=== PATIENT | female | born 1965 | race Caucasian/White ===

== ENCOUNTER → 2020-03-27 | Outpatient (CLI) | payer BC, OTHER ==
[~2020-03-27] MED LIST: CARV6.25 PO; D31000TA2 PO; FOSI20TA79 PO; METF-838 PO; MULTTAB61 PO; NAPR-885 PO; OZEM2INJ SQ; ROSU5TAB5 PO; SERT-138 PO
== END ==
LOC: M LABSMTC 11:26
PROVIDERS: ATTEND Anesthesiology
DX: Z20.828 Contact with and (suspected) exposure to other viral communicable diseases (principal)

== ENCOUNTER 2020-04-01 07:25 | Observation (INO) | payer BC, OTHER ==
[~2020-04-01] VITALS: Ht 165.1 cm; Wt 105.5 kg
[2020-04-01] VITALS (7 sets, daily range): BP systolic 128–150; BP diastolic 75–88
[~2020-04-01 07:25] MED LIST changes: +HEPARIN SOD (PORCINE) 5000UNITS/ML 1ML VIAL/SYRINGE SQ ONE; +UNRESOLVED CLARIFICATION ENTRY XX SCH
[2020-04-01] MEDS ORDERED: ONDANSETRON 4MG/2ML VIAL As Ordered ONE (08:21)
[2020-04-01] MEDS ORDERED: LIDOCAINE 2% 100MG/5ML SDV (FOR ANES.) As Ordered ONE (08:21)
[2020-04-01] MEDS ORDERED: ROCURONIUM BROMIDE 50 MG/5 ML VIAL As Ordered ONE ×2 (08:21→10:35)
[2020-04-01] MEDS ORDERED: dexameTHASONE 4 MG/ML 1ML VIAL (J1100 PER 1MG) As Ordered ONE (08:21)
[2020-04-01] MEDS ORDERED: fentaNYL 250 MCG/5 ML INJECTION (J3010) As Ordered ONE (08:21)
[2020-04-01] MEDS ORDERED: MIDAZOLAM INJ 2MG/2ML VIAL (J2250 PER 1MG) As Ordered ONE (08:21)
[2020-04-01] MEDS ORDERED: propofoL 200 MG/20 ML VIAL As Ordered ONE (08:21)
[2020-04-01] MEDS ORDERED: BUPIVACAINE LIPOSOME/PF 1.3% 20ML VIAL (13.3MG/ML)(EXPAREL)(C9290 PER1MG) As Ordered ONE (09:11)
[2020-04-01] MEDS ORDERED: LIDOCAINE 1% MDV 20ML VIAL As Ordered ONE (09:11)
[2020-04-01] MEDS ORDERED: EPINEPHrine INJ 1 MG/ML 1ML AMP As Ordered ONE (09:11)
[2020-04-01] MEDS ORDERED: BACITRACIN PWD 50,000 UNITS VIAL As Ordered ONE (09:12)
[2020-04-01] MEDS ORDERED: CLINDAMYCIN 600 MG/50 ML PREMIX BAG As Ordered ONE (09:53)
[2020-04-01] MEDS ORDERED: ePHEDrine SULFATE 25 MG/5 ML(5MG/ML) SYRINGE As Ordered ONE (10:14)
[2020-04-01] MEDS ORDERED: PHENYLephrine HCL 500 MCG/5 ML (100MCG/ML) SYRINGE (J2370) As Ordered ONE (10:45)
[2020-04-01] MEDS ORDERED: SUGAMMADEX SODIUM 500 MG/5 ML VIAL (BRIDION) As Ordered ONE (11:01)
[2020-04-01] MEDS ORDERED: ACETAMINOPHEN 1000MG 100ML IV BTL (OFIRMEV) (J0131 PER 10MG) As Ordered ONE (11:01)
[2020-04-01] MEDS ORDERED: HYDROmorphone HCL 2 MG/ML 1ML VIAL (J1170) As Ordered ONE (11:01)
[2020-04-01] MEDS ORDERED: SEVOFLURANE INHAL SOLN 250 ML BTL As Ordered ONE (11:22)
[2020-04-01] MEDS ORDERED: METOCLOPRAMIDE INJ 10MG/2ML VIAL (J2765 PER 1) As Ordered ONE (12:37)
--- NOTE | 2020-04-01 14:04 | POST-OPPD ---
Postoperative Procedure Note Date Of Procedure: Apr 01, 2020 PREOPERATIVE DIAGNOSIS: Breast asymmetry. h/o of Right breast cancer. POSTOPERATIVE DIAGNOSIS: same FINDINGS: Right breast s/p lumpectomy and radiation. Right breast ptosis with contraction. PROCEDURE: Right breast mastopexy, Left breast reduction for symmetry. SURGEON: Dr Parry ANESTHESIA: general SPECIMENS: Right breast tissue, Left breast tissue 342 gm. Liposuction fluid 350cc ESTIMATED BLOOD LOSS: 100 cc REPLACED: none DRAINS: 10 mm DEON x 2 COMPLICATIONS: none POSTOPERATIVE CONDITION: stable Dictation: [id number] JENNIFER PARRY DO Apr 01, 2020 14:04
[2020-04-01] MEDS: LR 1,000 ML IV SCH (14:05)
[2020-04-01] MEDS ORDERED: PERCOCET 5MG/325MG TAB PO PRN (14:15)
[2020-04-01] MEDS ORDERED: ACETAMINOPHEN TAB 650MG DOSE (2X325MG) PO PRN (14:15)
[2020-04-01] MEDS ORDERED: ONDANSETRON 4MG/2ML VIAL IV PRN ×2 (14:15→14:30)
[2020-04-01] MEDS ORDERED: oxyCODONE 5MG TAB PO PRN (14:30)
[2020-04-01] MEDS ORDERED: LR 1,000 ML IV SCH (14:30)
[2020-04-01] MEDS ORDERED: HYDROMORPHONE HCL 0.5 MG/ 0.5 ML SYRINGE (J1170 PER 1) IV PRN (14:30)
[2020-04-01] MEDS ORDERED: fentaNYL 100 MCG/2 ML INJECTION (J3010) IV PRN (14:30)
[2020-04-01] MEDS ORDERED: KETOROLAC TROMETHAMINE 10 MG TAB PO PRN (15:00)
[2020-04-01] MEDS: SERTRALINE 100 MG TAB PO SCH (16:55)
[2020-04-01] MEDS: metFORMIN (GLUCOPHAGE) 500 MG TAB PO SCH (16:55)
[2020-04-01] MEDS: FOSINOPRIL 10 MG TAB PO SCH (16:56)
[2020-04-01] MEDS: CARVedilol 6.25 MG TAB PO SCH (22:17)
[2020-04-02 02:00] VITALS: BP 120/72
[2020-04-02] MEDS: LR 1,000 ML IV SCH (03:30)
[2020-04-02 06:00] VITALS: BP 119/75
--- NOTE | 2020-04-02 08:00 | RO ---
OPERATIVE NOTE DATE OF OPERATION: 04/01/2020 PREOPERATIVE DIAGNOSIS: Breast asymmetry, history of right breast cancer. POSTOPERATIVE DIAGNOSIS: Breast asymmetry, history of right breast cancer. PROCEDURE: Right breast mastopexy and left breast reduction for symmetry. ATTENDING SURGEON: Jael Frazier DO, FACOS ANESTHESIA: General. SPECIMEN: Right breast tissue and left breast tissue, left breast tissue's weight 342 gm. and liposuction fluid 350 mL. ESTIMATED BLOOD LOSS: 100 mL BLOOD REPLACEMENT: Not needed. DRAINS: No drains. DRAINS: 10 mm Juan-Jefferson x2. COMPLICATIONS: None. PROCEDURE: This is a 54-year-old female with a history of right breast cancer. She had a lumpectomy followed by radiation to the right breast. The patient presents to me with significant asymmetry, right breast being smaller than the left. Also there is a contracted scar, inferior portion of the breast. The patient would like to achieve symmetry between the right and left breast. The best approach for her is to give her a mastopexy on the right side with breast reduction for symmetry on the left. Risks, benefits and alternatives were discussed with the patient in detail and she is ready to proceed. On the day of surgery, she was marked in the preoperative holding area. The right side from the sternal notch to the nipple areolar complex is 26 cm. On the left, it is 29 cm. The IMF measures 20 cm. She is marked for central pedicle for left on the right side and for superomedial pedicle for reduction on the left. After that portion was completed, she was brought into the operating room, placed in supine position. Preoperative antibiotics were given. Sequentials placed on the lower calves. General anesthesia was induced. 5000 units of heparin were given subcu before the operation started. We outlined the nipple-areolar complex on the right side at 42 mm in diameter and then incision was carried out around the incision and a lollipop incision, bringing her nipple placement at 20 cm from sternal notch. The central pedicle was dissected. The contraction of the inferior scar was released using electrocautery. The wounds were irrigated and then Exparel was infiltrated throughout the breast parenchyma, 6 mL total. Then we were able to move up the breast mound without any tension to its new location. No tissue was resected. A small amount of skin was resected medially. The pillars were closed with interrupted 3-0 Monocryl sutures. The vertical limb was 7 cm. A slight amount of excess tissue was measured inferiorly and partially transected and then de-epithelialized and then it was used to enhance the inferior pole. The horizontal incision was closed with interrupted 3-0 Monocryl sutures medially. We placed a drain through a separate stab incision. A 10 mm Juan-Jefferson drain was placed and then the patient had some excess tissue in the lateral chest on the right less than on the left. Nevertheless, tumescent solution was infiltrated in the lateral chest, 200 mL. Then the Vaser-assisted liposuction was done for two minutes followed by a regular liposuction, taking out almost 175 mL on the right side. Now we continued closure for the horizontal scar in the setting of the nipple-areolar complex in place with layered closures, 3-0 Monocryl, 4-0 Monocryl sutures and interrupted 5-0 plain gut sutures. Then we turned our attention to the left side and the nipple-areolar complex was outlined at 42 mm in diameter and then we started our resection of the breast. Inferolateral portion of the breast resected using electrocautery. The pedicle was identified and irrigated with some good vascular status. It was the de-epithelialized using Schafer scissors and a slight backcut was made inferiorly and it was brought into its new position at 20 cm from the sternal notch. The pillars were started closing with interrupted 3-0 Monocryl sutures. The vertical incision was 7 cm. Excess tissue was measured inferiorly and resected, creating the horizontal scar. A 10 mm Juan-Jefferson drain was placed through a separate stab incision and then we continued our closure of the horizontal scar. Tumescent solution was infiltrated in the lateral chest. Vaser liposuction was done, two minutes. The infiltration of tumescent was 200 mL. Then suction-assisted lipectomy was created to achieve the symmetry to the right side from the lateral chest and we had taken out 175 mL on the left as well. Then we continued closing the horizontal scar with 3-0 Monocryl sutures. The nipple-areolar complex was set in place with layered closure of 3-0 and 4-0 Monocryl sutures and a 5-0 plain. Good symmetry was achieved on the breast. A Prineo dressing was applied for the vertical and horizontal scars, Xeroform for the nipple areola as well as a bulky dressing and a surgical bra. The patient was extubated in the operating room without any difficulty, transferred to the recovery room in stable condition.
--- NOTE | 2020-04-02 08:29 | IPNPDOC ---
Subjective General Date Seen: Apr 02, 2020 Subject Chief Complaint/History The patient is a 54-year-old female admitted with a reason for visit of Malignant Neoplasm Right Breast,Ptosis Left Breast. Patient is s/p Right mastopexy and left breast reduction for symmetry POD 1. Doing well. Pain controlled. Ambulated. Tolerating diet. Current Medications Current Medications Current Medications Medications (Trade) Dose Ordered Sig/Danuta Route PRN Reason Start Time Stop Time Status Last Admin Dose Admin Acetaminophen (Tylenol Tab) 650 mg Q6H PRN PO MILD PAIN (PS 1-4) 04/01/20 14:15 Carvedilol (COReg) 6.25 mg BID PO 04/01/20 21:00 04/01/20 22:17 Fentanyl Citrate (Sublimaze) 25 mcg Q5MP PRN IV PAIN LEVEL 5-10 04/01/20 14:30 04/01/20 15:30 DC Fosinopril Sodium (Monopril) 20 mg DAILY PO 04/01/20 09:00 04/01/20 16:56 Hydromorphone HCl (Dilaudid) 0.2 mg Q5MP PRN IV PAIN LEVEL 4-7 04/01/20 14:30 04/01/20 15:30 DC Ketorolac Tromethamine (ToRADol) 10 mg Q6HP PRN PO MODERATE PAIN (PS 5-7) 04/01/20 15:00 04/06/20 14:59 04/01/20 20:10 Lactated Ringer's 1,000 ml @ 75 mls/hr [id number] IV 04/01/20 14:05 04/02/20 03:30 Lactated Ringer's 1,000 ml @ 100 mls/hr Q10H IV 04/01/20 14:30 04/01/20 15:30 DC Metformin HCl (Glucophage) 500 mg BID@08,18 PO 04/01/20 18:00 04/01/20 16:55 Miscellaneous (Unresolved Clarification Entry) SEE LABEL COMMENTS UNRESOLVED XX 04/01/20 00:01 Ondansetron HCl (ZOFRAN INJection) 4 mg Q4H PRN IV NAUSEA OR VOMITING 04/01/20 14:15 Ondansetron HCl (ZOFRAN INJection) 4 mg Q4HP PRN IV NAUSEA OR VOMITING 04/01/20 14:30 04/01/20 15:30 DC Oxycodone HCl (Roxicodone, Oxyir) 5 mg ASDIRECTED PRN PO PAIN LEVEL 1-4 04/01/20 14:30 04/01/20 15:30 DC Oxycodone/ Acetaminophen (Percocet 5mg/ 325mg Tablet) 2 tab Q4HP PRN PO PAIN LEVEL 8-10 04/01/20 14:15 04/01/20 22:17 Rosuvastatin Calcium (Crestor) 5 mg DAILY PO 04/02/20 09:00 Sertraline HCl (Zoloft) 100 mg DAILY PO 04/01/20 09:00 04/01/20 16:55 Allergies Coded Allergies: Cephalosporins (Verified Allergy, Intermediate, swelling, rash, 04/01/20) Objective Physical Examination Examination GENERAL APPEARANCE:Patient seen, laying in bed, awake, alert, and oriented. Comfortable, in no acute distress. SKIN: Warm and moist. BREAST: Right and left soft, non-tender incisions intact. DEON drains: R60/L40 cc/24 hr. NAC: Viable, warm, symmetrical, mild post-op ecchymosis, no expanding hematoma. LUNGS: Clear to auscultation bilaterally. No wheezing appreciated. HEART: No chest wall abnormalities. Regular rate and rhythm with no murmurs appreciated. ABDOMEN: Abdomen is soft, non-tender, non-distended. EXTREMITIES: No edema identified. No calf tenderness. Vital Signs Vital Signs Date Time Temp Pulse Resp B/P (MAP) Pulse Ox O2 Delivery O2 Flow Rate FiO2 04/02/20 06:00 98.4 74 17 119/75 (90) 97 Room Air I&Os I&O- Last 24 Hours up to 6 AM 04/02/20 06:00 Intake Total 2320 ml Output Total 100 ml Balance 2220 ml Laboratory Data Labs 24H Laboratory Tests 2 04/01/20 16:29: Bedside Glucose (Misc Panel) 151H 04/01/20 20:35: Bedside Glucose (Misc Panel) 147H 04/02/20 06:08: Bedside Glucose (Misc Panel) 102 Impression S/p Breast reconstruction with Right breast mastopexy and left breast reduction for symmetry. Stable for discharge Monitor drains at home Keep bra on Dressing changed Instructions given F/up plastic surgery Tuesday. Plan / VTE VTE Prophylaxis Ordered?: Yes JENNIFER PARRY DO Apr 02, 2020 08:29
[2020-04-02 08:30] VITALS: BP 119/75
[2020-04-02] MEDS: CARVedilol 6.25 MG TAB PO SCH (08:30)
[2020-04-02] MEDS: SERTRALINE 100 MG TAB PO SCH (08:30)
[2020-04-02] MEDS: metFORMIN (GLUCOPHAGE) 500 MG TAB PO SCH (08:30)
[2020-04-02] MEDS: FOSINOPRIL 10 MG TAB PO SCH (08:31)
[2020-04-02] MEDS ORDERED: PERCOCET PO (08:51)
[2020-04-02] MEDS ORDERED: ROSUVASTATIN 10 MG TAB (CRESTOR) PO SCH (09:00)
[2020-04-02 10:00] VITALS: BP 119/71
== END 2020-04-02 10:45 | disposition home or self-care (01) ==
LOC: M SDC 07:25 → M ED INP 07:26 → M MS5PR 15:25
PROVIDERS: ADMIT Plastic Surgery Surgery of the Hand; ATTEND Plastic Surgery Surgery of the Hand
DX: N64.81 Ptosis of breast (principal); L98.8 Other specified disorders of the skin and subcutaneous tissue; Z85.3 Personal history of malignant neoplasm of breast; I10 Essential (primary) hypertension; E11.9 Type 2 diabetes mellitus without complications; Z92.21 Personal history of antineoplastic chemotherapy; Z92.3 Personal history of irradiation; F41.9 Anxiety disorder, unspecified; Z79.84 Long term (current) use of oral hypoglycemic drugs; Z79.899 Other long term (current) drug therapy; Z88.1 Allergy status to other antibiotic agents
CPT/HCPCS: 19316; 19318; 88300; 88302; 88305; 96360; 96361; C9290; J0131; J0171; J1100; J1170; J1644; J2250; J2370; J2405; J2765; J3010

== ENCOUNTER → 2020-10-08 | Outpatient (CLI) | payer BC, OTHER ==
[~2020-10-08] MED LIST changes: -HEPARIN SOD (PORCINE) 5000UNITS/ML 1ML VIAL/SYRINGE SQ ONE; +PERCOCET PO; -UNRESOLVED CLARIFICATION ENTRY XX SCH; +ZOLO100T
[2020-10-08 09:00] VITALS: BP 134/78
--- NOTE | 2020-10-11 07:35 | ROOPDOC ---
[facility] Report Of Operation Report of Operation DATE OF PROCEDURE: 10/08/20 DIAGNOSIS: right breast suspicious lesion palpable and seen on sonography PROCEDURE: ultrasound guided biopsy of the right breast suspicious lesion with clip placement SURGEON: Kenan Shah BLOOD LOSS: minimal COMPLICATIONS: none Lidocaine 1% LOT [id number] Expiration 04/2024 Sodium Bicarbonate 8.4% LOT [id number] Expiration 04/2021 Hydromark clip LOT [id number] Expiration 06/2023 SHAPE: 4 Bx device: BARD [id number] x10 cm LOT [id number] Expiration 06/2023 Informed consent was obtained. The most common risk and possible complications including bleeding, hematoma, bruising, infection, injury to surrounding structures were explained to the patient and the patient expressed understanding. Patient was placed on the bed in the supine position. Appropriate time out was done stating patients name, date of , and the procedure to be performed. The right breast was prepped and draped in the usual fashion. The ultrasound was used to confirm the location of the lesion in the right breast at 7:00 5 centimeters from the nipple. This location of the lesion also corresponded to the palpable mass felt on exam previously. The extent of palpable mass was marked on the skin. Plain Lidocaine 1% and 8.4% sodium bicarbonate 10:1 mix was used to anesthetize the skin, the biopsy site and tissues along the anticipated biopsy tract. Small skin incision was made with blade number 11. BARD Marquee 14G cannula with introducer ([id number]) was inserted through the incision and advanced under the ultrasound guidance to position immediately adjacent to the lesion. Next, the introducer was removed and BARD Marquee 14G biopsy device was places in the cannula. Pre-biopsy imaging, and post-biopsy imaging were captured. Five good core biopsies were taken at various levels of the lesion. Specimen was placed in formaldehyde, labeled with appropriate biopsy site and patients name, and sent to pathology for evaluation. Next, the biopsy device was withdrawn and a clip introducer was inserted into the biopsy site via the cannula. SHAPE 4 Hydromark clip was deployed under sonographic guidance. Post-clip placement image was captured. Manual pressure over the biopsy cavity and tract was held after the clip introducer was withdrawn. No bleeding was noted upon removal of the pressure. Post-biopsy mammogram of the right breast was obtained and showed clip in expected position. Of note, on shahbaz MLO view the clip seems to be 1.3 cm i nferior to mammographic focal asymmetry which was initially thought, by the radiology team, to correspond to the sonographic lesion. Postprocedural dressing was placed. Patient tolerated procedure well. Discharge instructions were discussed with the patient and the patient expressed understanding. KENAN SHAH DO Oct 11, 2020 07:35
== END ==
LOC: M WHCPRO 06:51
PROVIDERS: ATTEND Surgery
DX: D24.1 Benign neoplasm of right breast (principal)
CPT/HCPCS: 19083; 77065; 88305; G0279

== ENCOUNTER → 2020-11-04 | Outpatient (CLI) | payer BC, OTHER ==
[2020-11-04 14:36] VITALS: BP 102/62
--- NOTE | 2020-11-04 14:42 | REP ---
INDICATION: R92.8 ABN RIGHT MAMMO/STEREO BX/CK CLIP PLACEMENT. Marker clip placement views. COMPARISON: Comparison mammography October 08, 2020 and September 19, 2020 as well as September 16, 2020. TECHNIQUE: Craniocaudal and mediolateral oblique views of the right breast are obtained. FINDINGS: A repeat craniocaudal view of the right breast is obtained and compared with the post marker clip placement CC view obtained on October 08, 2020. The marker clip is visible from that biopsy on the repeat CC view. A repeat stereotactic needle biopsy was performed using the area of architectural distortion seen in the right breast targeting from a mediolateral projection. Repeat CC and MLO views demonstrate this new marker clip in good position. IMPRESSION: Second needle biopsy marker clip placed today stereotactically is seen in good position. <Electronically signed by Adryan Cook > 11/04/20 [id number]
--- NOTE | 2020-11-04 17:06 | REP ---
INDICATION: R92.8 ABN RIGHT MAMMO/STEREO BX/CK CLIP PLACEMENT. COMPARISON: None. TECHNIQUE: The procedure was performed under the general supervision of Dr. Cook. Patient has a history of focal asymmetry of the retromammary lower-outer right breast seen on a previous mammogram dated 09/19/2020 from [facility]. The risks and benefits of the procedure were explained to the patient and informed consent was obtained. A mediolateral oblique approach was utilized. The nodule was localized using stereotactic mammographic guidance. 9 mL of 1% Xylocaine was used as a local anesthetic. A 10 gauge, suction assisted Mammotome needle was inserted and 6 core biopsy samples were obtained. A marker clip(HydroMARK shape 3) was placed at the biopsy site. The patient tolerated the procedure well and there were no immediate complications. After the appropriate amount of monitored convalescence, the patient was discharged from the department. EBL: Less than 3 mL FINDINGS: None IMPRESSION: Stereotactic right breast biopsy with marker clip placement.(HydroMARK shape 3) <Electronically signed by Alden Garcia > 11/04/20 [id number] <Electronically signed by Adryan Cook > 11/04/20 1701
== END ==
LOC: M WHCPRO 07:08
PROVIDERS: ATTEND Surgery
DX: R92.8 Other abnormal and inconclusive findings on diagnostic imaging of breast (principal)

== ENCOUNTER → 2021-01-08 | Outpatient (CLI) | payer BC, OTHER | LOC: M LABSMTC 11:28 | PROVIDERS: ATTEND Anesthesiology | DX: Z01.812 Encounter for preprocedural laboratory examination (principal); Z20.822 Contact with and (suspected) exposure to COVID-19 ==

== ENCOUNTER 2021-01-13 06:01 | Day surgery (SDC) | payer BC, OTHER ==
[~2021-01-13] VITALS: Ht 165.1 cm; Wt 93.4 kg
[~2021-01-13 06:01] MED LIST changes: +CLINDAMYCIN 900 MG in IV 1 EA IV ONE; +HEPARIN SOD (PORCINE) 5000UNITS/ML 1ML VIAL/SYRINGE SQ SCH; +LR 1,000 ML IV SCH
--- OUTSIDE RECORDS SUMMARY | 2021-01-13 06:04 | CCD ---
Author Author [facility] Organization [facility] Address Unknown Phone Unavailable Care Team Providers Care Library Circulation Assistant Name Role Phone Jerriradha Rufina Unavailable PROBLEMS Type Condition ICD9-CM Code [id number] Code Onset Dates Condition S tatus W/U Status Risk SNOMED Code Notes Problem History of right breast cancer Z85.3 Active confir med 109369713 Problem Abnormal mammogram of right breast R92.8 Activ e confirmed [id number] ALLERGIES Allergen (clinical drug ingredient) Drug/Non Drug Allergy do cumented on EMR Reaction Allergy Type Onset Date Status cefaclor Cefaclor([facility] Code:[address]-97) swelling Drug Allergy Active ENCOUNTERS from 1964 to 2020-11-26 Encounter Location Date Provider Diagnosis [facility] [address] [place] [address] [place] [address] Oct, Rufina Yap Abnormal mammogram of right breast R92.8 ; History of right breast cancer Z85.3 ; Genetic testing Z13.79 and Family history of cancer Z80.9 IMMUNIZATIONS No Information SOCIAL HISTORY Tobacco Use: Social History Observation Description Date Details (start date - stop date) Never Smoker Sex Assigned At : Social History Observation Description Sex Assigned At Unknown Tobacco Use: Question Answer Notes Are you a: never smoker REASON FOR REFERRAL No Information VITAL SIGNS Weight 210 lbs Oct, Weight-kg 95.25 kg Oct, Height 66 in Oct, BMI 33.89 kg/m2 Oct, Heart Rate 66 /min Oct, Respiratory Rate 18 /min Oct, Temperature 97.5 degrees Fahrenheit Oct, Oximetry 100 Oct, Blood pressure systolic 120 mm Hg Oct, Blood pressure diastolic 80 mm Hg Oct, MEDICATIONS Medication SIG (Take, Route, Frequency, Duration) Notes Start Da te End Date Status Zoloft 100 MG 1 tablet Orally Once a day for 30 day(s) Not-Taking Iron 325 (65 Fe) MG 1 tablet Orally Once a day for 30 day(s) Active metFORMIN HCl ER Active Rosuvastatin Calcium Acti ve Tamoxifen Citrate 20 MG 1 tablet Orally Once a day for 30 day(s) Not-Taking Carvedilol 6.25mg as directed oral bid Active Multivitamins as directed Orally Act edward Ozempic (0.25 or 0.5 MG/DOSE) 2 MG/1.5ML INJECT 0.5MG ONCE WEEKLY Subcutaneous for 28 Not-Taking Fosinopril Sodium Active Sertraline HCl 100 MG 1 tablet Orally Once a day Active PriLOSEC 20 MG 1 capsule Orally Once a day for 30 day(s) Not-Taking Naprosyn 500 MG 1 tablet as needed Orally every 12 hrs Active PROCEDURES No Information RESULTS No Results REASON FOR VISIT Post R Stereo bx with Rad MEDICAL (GENERAL) HISTORY Type Description Date Medical History Allergic Rhinitis Medical History Bunion Left and right Medical History Congenital Accessory Skin Tags Medical History Depression Medical History Essential hypertension Benign Medical History Glaucoma/ Intraocular Pressure Medical History Obesity Medical History IDC right breast, age 42 Medical History diabetes mallitus Surgical History Hysterectomy 2009 Surgical History Tubal Ligation 2000 Surgical History Tonsillectomy 1990 Surgical History TVT 2003 Surgical History Sinus 2001 Surgical History Breast biopsy and lumpectomy 2007 Surgical History Breast reduction 04/01/20 Surgical History R breast u/s bx 10/08/20 Surgical History right breast stereo bx 11/04/20 Hospitalization History Surgery related Goals Section No Information Health Concerns No Information MEDICAL EQUIPMENT No Information MENTAL STATUS No Information FUNCTIONAL STATUS No Information ASSESSMENTS Encounter Date Diagnosis Assessment Notes Treatment Notes Treatm ent Clinical Notes Oct, Abnormal mammogram of right breast (ICD-10 - R92 .8) s/p Right breast ultrasound guided biopsy of palpable mass with sono correlate on 10/08/2020 with mePathology: breast parenchyma what scar formation, fat necrosis, foreign body type giant cell reaction and entrapped squamous epithelium, suggestive of prior biopsy/surgical changes. Clip 2cm laterally S/p Right stereotactic biopsy of mammographic focal asymmetry on 11/06/2020 with RADIOLOGY I reviewed the pathology results of the right breast stereotactic biopsy with Ms. Liang and explained that no malignancy was identified. Her pathology showed benign breast parenchyma with rare foci of ductal epithelial hyperplasia and sclerosing adenosis with associated microcalcifications with foreign body type giant cell reaction/fat necrosis.This result is felt to be concordant with patient's previous surgical history. I explained that no further intervention is needed at this time. I explained that she will have a right breast mammogram and ultrasound is 6 months to assess the stability of both biopsy sites. If there are no further changes seen at that time, she can return to her regular screening mammograms. I asked her to let me know if she schedules her surgery with Dr. Frazier after January as we would need to change her follow-up mammogram and ultrasound. She will follow up on May 04 at 8AM with me. Ms. Liang may proceed with planned surgery with Dr Frazier. She is cleared from breast surgery standpoint. All questions were answered. Patient agrees with the plan Oct, History of right breast cancer (ICD-10 - Z85.3) RIGHT BREAST CANCER (inferior breast) IDC GRADE 3 ER 80% FL 90% HER2 positive pT1c (1.2 cm) pN0 (0/1) cM0 Stage 1 S/p lumpectomy [place] SLNBx [place] [address] Mena Margins negative S/p chemo w Herceptin x 1 year, RT, Tamoxifen x10 years s/p b/l breast reconstruction/ campbell pattern w Dr Frazier 03/2020 - continue annual mammograms - following with Dr Frazier for reconstruction/ fat transfer Oct, Genetic testing (ICD-10 - Z13.79) Done previously, negative Oct, Family history of cancer (ICD-10 - Z80.9) Family Hx of cancer dx in mother at the age of 63. Patient had genetic testing done previously- negative. Oct, Other I, Dr. Poncho patricia, reviewed the medical note prepared by the scribe and confirm the findings and the discussed plan. PLAN OF TREATMENT Treatment Notes Assessment Notes Clinical Notes Abnormal mammogram of right breast s/p Right breast ul trasound guided biopsy of palpable mass with sono correlate on 10/08/2020 with mePathology: breast parenchyma what scar formation, fat necrosis, foreign body type giant cell reaction and entrapped squamous epithelium, suggestive of prior biopsy/surgical changes.Clip 2cm laterallyS/p Right stereotactic biopsy of mammographic focal asymmetry on 11/06/2020 with RADIOLOGYI reviewed the pathology results of the right breast stereotactic biopsy with Ms. Liang and explained that no malignancy was identified. Her pathology showed benign breast parenchyma with rare foci of ductal epithelial hyperplasia and sclerosing adenosis with associated microcalcifications with foreign body type giant cell reaction/fat necrosis.This result is felt to be concordant with patient's previous surgical history.I explained that no further intervention is needed at this time. I explained that she will have a right breast mammogram and ultrasound is 6 months to assess the stability of both biopsy sites. If there are no further changes seen at that time, she can return to her regular screening mammograms.I asked her to let me know if she schedules her surgery with Dr. Frazier after January as we would need to change her follow-up mammogram and ultrasound.She will follow up on May 04 at 8AM with me.Ms. Liang may proceed with planned surgery with Dr Frazier. She is cleared from breast surgery standpoint.All questions were answered. Patient agrees with the plan History of right breast cancer RIGHT BREAST CANCER (i nferior breast)IDC GRADE 3ER 80% FL 90% HER2 [id number] (1.2 cm) pN0 (0/1) [id number] 1S/p lumpectomy [place]NBx [place] [address] Gotti negativeS/p chemo w Herceptin x 1 year, RT, Tamoxifen x10 yearss/p b/l breast reconstruction/ campbell pattern w Dr Frazier 03/2020- continue annual mammograms- following with Dr Frazier for reconstruction/ fat transfer Genetic testing Done previously, negative Family history of cancer Family Hx of cancer dx in mo ther at the age of 63.Patient had genetic testing done previously- negative. Future Test Test Name Order Date [facility] Sundar Diagnostic Unilateral (Ultrasound if Indicat ed) (3D Mammo) [id number] Breast U/S Unilateral Limited [id number] Next Appt Details 05/04/2021 at 8AM Reason:6 month post be nign biopsy. Will need mammogram and ultrasound prior to visit. Keep on AD schedule. Provider Name:Rufina Yap, 20 [birth year]06 08:00:00 AM, [address], , [place], [address], Follow Up:05/04/2021 at 8AM6 month post benign biopsy. Will need mammogram and ultrasound prior to visit. Keep on AD schedule. Insurance Providers Payer Name Payer Address Payer Phone Insured Name Patient Relati onship to Insured Coverage Start Date Coverage End Date [facility] [address] [facility] [id number] SONU LIANG
--- OUTSIDE RECORDS SUMMARY | 2021-01-13 06:04 | CCD | Continuity of Care Document ---
Author Author Hanna PARRY DO Organization Unknown Address [address] [place] [address] Phone [phone] Care Team Providers Care Mixed Signal Design Engineer Name Role Phone AUTM Unavailable Doris Rich N.P. AUTM Jocelyn Humphries AUTM [phone] Problems Active Problems Provider Date Essential hypertension Jael Parry DO Onset: 12/26/2019 Social History Type Date Description Comments Sex Female ETOH Use Occasionally consumes alcohol Tobacco Use Start: Unknown Denies Smoking Smoking Status Reviewed: 12/26/19 Denies Smoking Allergies, Adverse Reactions, Alerts Active Allergies Criticality Reaction | Severity Comments Date Cefaclor Unable to assess criticality 12/26/2019 Medications Active Medications SIG Qnty Indications Ordering Provide r Date Carvedilol 6.25mg Tablets Unknown Fosinopril Sodium 20mg Tablets 1 by mouth every day Unknown Metformin HCL 500mg Tablets Unknown Rosuvastatin Calcium 5mg Tablets Unknown Sertraline HCL 100mg Tablets 1 by mouth every day Unknown Naproxen 500mg Tablets Unknown Ozempic (0.25 Or 0.5 MG/Dose) 2mg/1.5ML Solution Pen-Inject 0.5mg Unknown Immunizations Description No Information Available Vital Signs Date Vital Result Comment 11/12/2020 8:52am BP Systolic 122 mmHg BP Diastolic 82 mmHg Heart Rate 84 /min Respiratory Rate 14 /min Body Temperature 97.5 F Height 66 inches 5'6" Weight 210.00 lb BMI (Body Mass Index) 33.9 kg/m2 [place] Body Weight 130 lb Weight 95.256 kg BSA (Body Surface Area) 2.04 m2 09/15/2020 11:11am BP Systolic 144 mmHg BP Diastolic 88 mmHg Heart Rate 80 /min Respiratory Rate 16 /min Height 66 inches 5'6" Weight 213.00 lb BMI (Body Mass Index) 34.4 kg/m2 [place] Body Weight 130 lb Weight 96.617 kg BSA (Body Surface Area) 2.05 m2 Results Description No Information Available Procedures Date Code Description Status 09/15/2020 05785 Office/Outpatient Established Lo w MDM 20-29 Min Completed 06/27/2020 54524 Office/Outpatient Established Mo d MDM 30-39 Min Completed Medical Devices Description No Information Available Encounters Type Date Location Provider Dx Diagnosis Office Visit 09/15/2020 11:15a [facility] Jael Pale y, DO C50.411 Malig neoplm of upper-outer quadrant of right female breast N64.89 Other specified disorders of breast Z85.3 Personal history of malignan t neoplasm of breast Office Visit 06/27/2020 10:15a [facility] Jael Pale y, DO C50.411 Malig neoplm of upper-outer quadrant of right female breast L98.8 Oth disrd of the skin and cummins bcutaneous tissue N65.1 Disproportion of reconstruct ed breast Assessments Date Code Description Provider 11/12/2020 C50.411 Malignant neoplasm o f upper-outer quadrant of right female breast Jael Freddie, DO 11/12/2020 N64.89 Other specified disorders of ana paula ast Jael Freddie, DO 09/15/2020 C50.411 Malignant neoplasm o f upper-outer quadrant of right female breast Jael Freddie, DO 09/15/2020 N64.89 Other specified disorders of ana paula ast Jael Freddie, DO 09/15/2020 Z85.3 Personal history of malignant ne oplasm of breast Jael Freddie, DO 06/27/2020 C50.411 Malignant neoplasm o f upper-outer quadrant of right female breast Jael Freddie, DO 06/27/2020 L98.8 Other specified disorders of the skin and subcutaneous tissue Jael Freddie, DO 06/27/2020 N65.1 Disproportion of reconstructed b reast Jael Freddie, DO Plan of Treatment No Information Available Functional Status Description No Information Available Mental Status Description No Information Available Referrals Description No Information Available
--- OUTSIDE RECORDS SUMMARY | 2021-01-13 06:04 | CCD | Continuity of Care Document ---
Author Author Hanna PARRY DO Organization Unknown Address [address] [place] [address] Phone [phone] Care Team Providers Care Dope Mixer Name Role Phone AUTM Unavailable Doris Rich N.P. AUTM [phone] Jocelyn Humphries AUTM [phone] Problems Active Problems Provider Date Essential hypertension Jael Parry DO Onset: 12/26/2019 Social History Type Date Description Comments Sex Female ETOH Use Occasionally consumes alcohol Tobacco Use Start: Unknown Denies Smoking Smoking Status Reviewed: 12/26/19 Denies Smoking Allergies and adverse reactions Active Allergies Criticality Reaction | Severity Comments [...] lb BMI (Body Mass Index) 33.9 kg/m2 [place] Body Weight 130 lb Weight 95.256 kg BSA (Body Surface Area) 2.04 m2 09/15/2020 11:11am BP Systolic 144 mmHg BP Diastolic 88 mmHg Heart Rate 80 /min Respiratory Rate 16 /min Height 66 inches 5'6" Weight 213.00 lb BMI (Body Mass Index) 34.4 kg/m2 [place] Body Weight 130 lb Weight 96.617 kg BSA (Body Surface Area) 2.05 m2 Results Description No Information Available Procedures Date Code Description Status 09/15/2020 26154 Office/Outpatient Established Lo w MDM 20-29 Min Completed Medical Devices Description No Information Available Encounters Type Date Location Provider Dx Diagnosis Office Visit 09/15/2020 11:15a [facility] Jael Pale y, DO C50.411 Malig neoplm of upper-outer quadrant of right female breast N64.89 Other specified disorders of breast Z85.3 Personal history of malignan t neoplasm of breast Assessments Date Code Description Provider 11/12/2020 [...] ne oplasm of breast Jael Freddie, DO Plan of Treatment Future Appointment(s):* 01/13/2021 10:30 am - Jael Parry DO at [facility] * 01/19/2021 10:15 am - Jael Parry DO at [facility] Functional Status Description No Information Available Mental Status Description No Information Available Referrals Description No Information Available
--- OUTSIDE RECORDS SUMMARY | 2021-01-13 06:04 | CCD | Continuity of Care Document ---
Author Author Hanna PARRY DO Organization Unknown Address [address] [place] [address] Phone [phone] Care Team Providers Care Fishing Lure Assembler Name Role Phone AUTM Unavailable Doris Rich N.P. AUTM [phone] Jocelyn Humphries AUTM [phone] Problems Active Problems Provider Date Essential hypertension Jael Parry DO Onset: 12/26/2019 Social History Type Date Description Comments Sex Female ETOH Use Occasionally consumes alcohol Tobacco Use Start: Unknown Denies Smoking Smoking Status Reviewed: 12/26/19 Denies Smoking Allergies, Adverse Reactions, Alerts Active Allergies Reaction Severity Comments Date Cefaclor 12/26/2019 Medications Active Medications SIG Qnty Indications [...] Signs Date Vital Result Comment 11/12/2020 8:52am Body Temperature 97.5 F 09/15/2020 11:11am BP Systolic 144 mmHg BP Diastolic 88 mmHg Heart Rate 80 /min Respiratory Rate 16 /min Height 66 inches 5'6" Weight 213.00 lb BMI (Body Mass Index) 34.4 kg/m2 [place] Body Weight 130 lb Weight 96.617 kg BSA (Body Surface Area) 2.05 m2 Results Description No Information Available Procedures Date Code Description Status 09/15/2020 60665 Office/Outpatient Established Lo w MDM 20-29 Min Completed 06/27/2020 45424 Office/Outpatient Established Mo d MDM 30-39 Min Completed Medical Devices Description No Information Available Encounters Type Date Location Provider Dx Diagnosis Office Visit 09/15/2020 11:15a [facility] Jael Pale y, DO C50.411 Malig neoplm of upper-outer quadrant of right female breast N64.89 Other specified disorders of breast Z85.3 Personal history of malignan t neoplasm of breast Office Visit 06/27/2020 10:15a [facility] Jael Pale y, DO C50.411 Malig neoplm of upper-outer quadrant of right female breast L98.8 Oth disrd of the skin and cummins bcutaneous tissue N65.1 Disproportion of reconstruct ed breast Assessments Date Code Description Provider 09/15/2020 C50.411 Malignant neoplasm o f upper-outer [...]
--- OUTSIDE RECORDS SUMMARY | 2021-01-13 06:04 | CCD ---
Author Author [facility] Organization [facility] Address Unknown Phone Unavailable Care Team Providers Care Grass Farmer Name Role Phone Rufina Yap Unavailable PROBLEMS Type Condition ICD9-CM Code [id number] Code Onset Dates Condition S tatus W/U Status Risk SNOMED Code Notes Problem History of right breast cancer Z85.3 Active confir med [id number] Problem Abnormal mammogram of right breast R92.8 Activ e confirmed [id number] ALLERGIES Allergen (clinical drug ingredient) Drug/Non Drug Allergy do cumented on EMR Reaction Allergy Type Onset Date Status cefaclor Cefaclor([facility] Code:[address]-17) swelling Drug Allergy Active ENCOUNTERS from 1964 to 2020-11-05 Encounter Location Date Provider Diagnosis [facility] [address] [place] [address] [place] [address] 11 Oct, 2020 Rufina Yap IMMUNIZATIONS No Information SOCIAL HISTORY Tobacco Use: Social History Observation Description Date Details (start date - stop date) Never Smoker Sex Assigned At : Social History Observation Description Sex Assigned At Unknown Tobacco Use: Question Answer Notes Are you a: never smoker REASON FOR REFERRAL No Information VITAL SIGNS No information MEDICATIONS Medication SIG (Take, Route, Frequency, Duration) Notes Start Da te End Date Status metFORMIN HCl ER Active Rosuvastatin Calcium Acti ve Multivitamins as directed Orally Act edward Iron 325 (65 Fe) MG 1 tablet Orally Once a day for 30 day(s) Active PriLOSEC 20 MG 1 capsule Orally Once a day for 30 day(s) Not-Taking Tamoxifen Citrate 20 MG 1 tablet Orally Once a day for 30 day(s) Not-Taking Zoloft 100 MG 1 tablet Orally Once a day for 30 day(s) Not-Taking Sertraline HCl 100 MG 1 tablet Orally Once a day Active Naprosyn 500 MG 1 tablet as needed Orally every 12 hrs Active Fosinopril Sodium Active Carvedilol 6.25mg as directed oral bid Active Ozempic (0.25 or 0.5 MG/DOSE) 2 MG/1.5ML INJECT 0.5MG ONCE WEEKLY Subcutaneous for 28 Not-Taking PROCEDURES No Information RESULTS No Results REASON FOR VISIT 1d postbx MEDICAL (GENERAL) HISTORY Type Description Date Medical [...] Surgical History R breast u/s bx 10/08/20 Hospitalization History Surgery related Goals Section No Information Health Concerns No Information MEDICAL EQUIPMENT No Information MENTAL STATUS No Information FUNCTIONAL STATUS No Information ASSESSMENTS No Information PLAN OF TREATMENT Next Appt Details Provider Name:Rufina Yap, 20 16-11-15 01:00:00 PM, [address] [place] [address], , [place], [address], Insurance Providers Payer Name Payer Address Payer Phone Insured Name Patient Relati onship to Insured Coverage Start Date Coverage End Date [facility] [address] [facility] [id number] SONU SHARP self
--- OUTSIDE RECORDS SUMMARY | 2021-01-13 06:04 | CCD ---
Author Author [facility] Organization [facility] Address Unknown Phone Unavailable Care Team Providers Care Hospital Supervisor Name Role Phone Jerriradha Rufina Unavailable PROBLEMS Type Condition ICD9-CM Code [id number] Code Onset Dates Condition S tatus W/U Status Risk SNOMED Code Notes Problem History of right breast cancer Z85.3 Active confir med [id number] Problem Abnormal mammogram of right breast R92.8 Activ e confirmed [id number] ALLERGIES Allergen (clinical drug ingredient) Drug/Non Drug Allergy do cumented on EMR Reaction Allergy Type Onset Date Status cefaclor Cefaclor([facility] Code:[address]-67) swelling Drug Allergy Active ENCOUNTERS from 1965 to 2020-10-23 Encounter Location Date Provider Diagnosis [facility] [address] [place] [address] [place] [address] Sep, Rufina Yap Abnormal mammogram of right breast [...] FOR REFERRAL No Information VITAL SIGNS Weight 207 lbs Sep, Weight-kg 93.89 kg Sep, Height 66 in Sep, BMI 33.41 kg/m2 Sep, Heart Rate 76 /min Sep, Respiratory Rate 18 /min Sep, Temperature 97.7 degrees Fahrenheit Sep, Oximetry 99 Sep, Blood pressure systolic 124 mm Hg Sep, Blood pressure diastolic 82 mm Hg Sep, MEDICATIONS Medication SIG (Take, Route, Frequency, Duration) [...] Information RESULTS No Results REASON FOR VISIT post R biopsy MEDICAL (GENERAL) HISTORY Type Description Date Medical [...] Notes Treatment Notes Treatm ent Clinical Notes Sep, Abnormal mammogram of right breast (ICD-10 - R92 .8) s/p Right breast ultrasound guided biopsy on 10/08/2020 with me I reviewed the pathology report with Ms. Liang and explained that no malignancy was identified in the specimen. Pathology showed fragments of breast parenchyma with scar formation, fat necrosis, foreign body type giant cell reaction and entrapped squamous epithelium, suggestive of prior biopsy/surgical site changes. Base on appearance of the sonographic target corresponding to palpable lesion and history of previous surgery, results of pathology appear to be concordant. The clip is 2 cm lateral to the focal asymmetry (more medial) seen on lizzie post- biopsy mammogram. This clip on sono appears to be directly in the sonographic target. I feel that the area of mammographic focal asymmetry was not evaluated with US guided procedure. Mammographic target does not correspond to sonographic target. I recommend that patient have right breast stereotactic biopsy of focal asymmetry with another clip placement and post bx mammogram with lizzie. I briefly explained the procedure to the patient. I explained that after the biopsy, a marking clip will be placed at the site of the biopsy to allow easier localization of the lesion in case the biopsy comes back concerning. After the biopsy, she will have a gentle mammogram to confirm the position of the clip. I briefly described the risks and possible complications of the procedure including bleeding, infection, and injury to surrounding structures (nipple, skin, muscle, and lung). I asked patient not to take any blood thinning medication including aspirin, ibuprofen, and/or Excedrin. I asked her not to take her Naproxen 5 days before her biopsy. We'll schedule her for a Right breast stereotactic biopsy with clip placement and post bx Right mammogram with LIZZIE to be done with RADIOLOGY on Nov 04 at 1:30PM. All questions were answered. 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 Mena Margins negative S/p chemo w Herceptin x 1 year, RT, Tamoxifen x10 years s/p b/l breast reconstruction/ campbell pattern w Dr Frazier 03/2020 - continue annual mammograms - following with Dr Frazier for reconstruction/ fat transfer Sep, Genetic testing (ICD-10 - Z13.79) Done previously, negative Sep, Family history of cancer (ICD-10 - Z80.9) Family Hx of cancer dx in mother at the age of 63. Patient had genetic testing done previously- negative. Sep, Other I, Dr. Poncho patricia, reviewed the medical note prepared by the scribe and confirm the findings and the discussed plan PLAN OF TREATMENT Treatment Notes Assessment Notes Clinical Notes Abnormal mammogram of right breast s/p Right breast ul trasound guided biopsy on 10/08/2020 with Kae reviewed the pathology report with Logan Garth and explained that no malignancy was identified in the specimen. Pathology showed fragments of breast parenchyma with scar formation, fat necrosis, foreign body type giant cell reaction and entrapped squamous epithelium, suggestive of prior biopsy/surgical site changes.Base on appearance of the sonographic target corresponding to palpable lesion and history of previous surgery, results of pathology appear to be concordant.The clip is 2 cm lateral to the focal asymmetry (more medial) seen on lizzie post-biopsy mammogram. This clip on sono appears to be directly in the sonographic target. I feel that the area of mammographic focal asymmetry was not evaluated with US guided procedure. Mammographic target does not correspond to sonographic target. I recommend that patient have right breast stereotactic biopsy of focal asymmetry with another clip placement and post bx mammogram with lizzie.I briefly explained the procedure to the patient. I explained that after the biopsy, a marking clip will be placed at the site of the biopsy to allow easier localization of the lesion in case the biopsy comes back concerning. After the biopsy, she will have a gentle mammogram to confirm the position of the clip.I briefly described the risks and possible complications of the procedure including bleeding, infection, and injury to surrounding structures (nipple, skin, muscle, and lung).I asked patient not to take any blood thinning medication including aspirin, ibuprofen, and/or Excedrin. I asked her not to take her Naproxen 5 days before her biopsy.We'll schedule her for a Right breast stereotactic biopsy with clip placement and post bx Right mammogram withTOMO to be done with RADIOLOGY on Nov 04 at 1:30PM.All questions were answered. Patient agrees with the plan History of right breast cancer RIGHT BREAST CANCER (i nferior breast)IDC GRADE 3ER 80% ND 90% HER2 [id number] (1.2 cm) pN0 (0/1) [id number] 1S/p lumpectomy and SLNBx in 2007 with [...] 62.Patient had genetic testing done previously- negative. Treatment Notes Test Name Order Date [facility] Lizzie Diagnostic Unilateral (Ultrasound if Indicat ed) (3D Mammo) 2020-10-13 Stereotatic Breast Biopsy 2020-10-13 Next Appt Details Provider Name:Rufina Yap, 20 16-11-15 01:00:00 PM, [address] [facility], , [place], [place], [facility], Insurance Providers Payer Name Payer Address Payer Phone Insured Name Patient Relati onship to Insured Coverage Start Date Coverage End Date [facility] [address] [facility] [id number] SONU LIANG self
--- OUTSIDE RECORDS SUMMARY | 2021-01-13 06:06 | CCD ---
Author Author [facility] Organization [facility] Address Unknown Phone Unavailable Care Team Providers Care Senior Formulation Scientist Name Role Phone Lidya, H Jocelyn DEALER ACCOUNT MANAGER Unavailable Unavailable Lidya, H Jocelyn DEALER ACCOUNT MANAGER Unavailable Unavailable Lidya, H Jocelyn DEALER ACCOUNT MANAGER Unavailable Unavailable Lidya, H Jocelyn DEALER ACCOUNT MANAGER Unavailable Unavailable Lidya, H Jocelyn DEALER ACCOUNT MANAGER Unavailable Unavailable Lidya, H Jocelyn DEALER ACCOUNT MANAGER Unavailable Unavailable Lidya, H Jocelyn DEALER ACCOUNT MANAGER Unavailable Unavailable Lidya, H Jocelyn DEALER ACCOUNT MANAGER Unavailable Unavailable Lidya, H Jocelyn DEALER ACCOUNT MANAGER Unavailable Unavailable Lidya, H Jocelyn DEALER ACCOUNT MANAGER Unavailable Unavailable Lidya, H Jocelyn DEALER ACCOUNT MANAGER Unavailable Unavailable Lidya, H Jocelyn DEALER ACCOUNT MANAGER Unavailable Unavailable Lidya, H Jocelyn DEALER ACCOUNT MANAGER Unavailable Unavailable Lidya, H Jocelyn DEALER ACCOUNT MANAGER Unavailable Unavailable Lidya, H Jocelyn DEALER ACCOUNT MANAGER Unavailable Unavailable Lidya, H Jocelyn DEALER ACCOUNT MANAGER Unavailable Unavailable Lidya, H Jocelyn DEALER ACCOUNT MANAGER Unavailable Unavailable Lidya, H Jocelyn DEALER ACCOUNT MANAGER Unavailable Unavailable Lidya, H Jocelyn DEALER ACCOUNT MANAGER Unavailable Unavailable Lidya, H Jocelyn DEALER ACCOUNT MANAGER Unavailable Unavailable Lidya, H Jocelyn DEALER ACCOUNT MANAGER Unavailable Unavailable Lidya, H Jocelyn DEALER ACCOUNT MANAGER Unavailable Unavailable Lidya, H Jocelyn DEALER ACCOUNT MANAGER Unavailable Unavailable Lidya, H Jocelny DEALER ACCOUNT MANAGER Unavailable Unavailable Lidya, H Jocelyn DEALER ACCOUNT MANAGER Unavailable Unavailable Lidya, H Jocelyn DEALER ACCOUNT MANAGER Unavailable Unavailable Lidya, H Jocelyn DEALER ACCOUNT MANAGER Unavailable Unavailable Lidya, H Jocelyn DEALER ACCOUNT MANAGER Unavailable Unavailable Lidya, H Jocelyn DEALER ACCOUNT MANAGER Unavailable Unavailable Lidya, H Jocelyn DEALER ACCOUNT MANAGER Unavailable Unavailable Lidya, H Jocelyn DEALER ACCOUNT MANAGER Unavailable Unavailable Lidya, H Jocelyn DEALER ACCOUNT MANAGER Unavailable Unavailable Liday, H Jocelyn DEALER ACCOUNT MANAGER Unavailable Unavailable Lidya, H Jocelyn DEALER ACCOUNT MANAGER Unavailable Unavailable Lidya, H Jocelyn DEALER ACCOUNT MANAGER Unavailable Unavailable Lidya, H Jocelyn DEALER ACCOUNT MANAGER Unavailable Unavailable Lidya, H Jocelyn DEALER ACCOUNT MANAGER Unavailable Unavailable Lidya, H Jocelyn DEALER ACCOUNT MANAGER Unavailable Unavailable Lidya, H Jocelyn DEALER ACCOUNT MANAGER Unavailable Unavailable Lidya, H Jocelyn DEALER ACCOUNT MANAGER Unavailable Unavailable Lidya, H Jocelyn DEALER ACCOUNT MANAGER Unavailable Unavailable Lidya, H Jocelyn DEALER ACCOUNT MANAGER Unavailable Unavailable Lidya, H Jocelyn DEALER ACCOUNT MANAGER Unavailable Unavailable Lidya, H Jocelyn DEALER ACCOUNT MANAGER Unavailable Unavailable Lidya, H Jocelyn DEALER ACCOUNT MANAGER Unavailable Unavailable Lidya, H Jocelyn DEALER ACCOUNT MANAGER Unavailable Unavailable Lidya, H Jocelyn DEALER ACCOUNT MANAGER Unavailable Unavailable Lidya, H Jocelyn DEALER ACCOUNT MANAGER Unavailable Unavailable Lidya, H Jocelyn DEALER ACCOUNT MANAGER Unavailable Unavailable Lidya, H Jocelyn DEALER ACCOUNT MANAGER Unavailable Unavailable Lidya, H Jocelyn DEALER ACCOUNT MANAGER Unavailable Unavailable Lidya, H Jocelyn DEALER ACCOUNT MANAGER Unavailable Unavailable Lidya, H Jocelyn DEALER ACCOUNT MANAGER Unavailable Unavailable Lidya, H Jocelyn DEALER ACCOUNT MANAGER Unavailable Unavailable Lidya, H Jocelyn DEALER ACCOUNT MANAGER Unavailable Unavailable Lidya, H Jocelyn DEALER ACCOUNT MANAGER Unavailable Unavailable Lidya, H Jocelyn DEALER ACCOUNT MANAGER Unavailable Unavailable Lidya, H Jocelyn DEALER ACCOUNT MANAGER Unavailable Unavailable Lidya, H Jocelyn DEALER ACCOUNT MANAGER Unavailable Unavailable Nunu Gracia MD Unavailable Unavailable Nunu Gracia MD Unavailable Unavailable Nunu Gracia MD Unavailable Unavailable SANDIP, B SARINA DEALER ACCOUNT MANAGER Unavailable Unavailable SANDIP, B SARINA DEALER ACCOUNT MANAGER Unavailable Unavailable SANDIP, B SARINA DEALER ACCOUNT MANAGER Unavailable Unavailable SANDIP, B SARINA DEALER ACCOUNT MANAGER Unavailable Unavailable SANDIP, B SARINA DEALER ACCOUNT MANAGER Unavailable Unavailable SANDIP, B SARINA DEALER ACCOUNT MANAGER Unavailable Unavailable SANDIP, B SARINA DEALER ACCOUNT MANAGER Unavailable Unavailable SANDIP, B SARINA DEALER ACCOUNT MANAGER Unavailable Unavailable SANDIP, B SARINA DEALER ACCOUNT MANAGER Unavailable Unavailable SANDIP, B SARINA DEALER ACCOUNT MANAGER Unavailable Unavailable SANDIP, B SARINA DEALER ACCOUNT MANAGER Unavailable Unavailable SANDIP, B SARINA DEALER ACCOUNT MANAGER Unavailable Unavailable SANDIP, B SARINA DEALER ACCOUNT MANAGER Unavailable Unavailable SANDIP, B SARINA DEALER ACCOUNT MANAGER Unavailable Unavailable SANDIP, B SARINA DEALER ACCOUNT MANAGER Unavailable Unavailable SANDIP, B SARINA DEALER ACCOUNT MANAGER Unavailable Unavailable SANDIP, B SARINA DEALER ACCOUNT MANAGER Unavailable Unavailable SANDIP, B SARINA DEALER ACCOUNT MANAGER Unavailable Unavailable SANDIP, B SARINA DEALER ACCOUNT MANAGER Unavailable Unavailable SANDIP, B SARINA DEALER ACCOUNT MANAGER Unavailable Unavailable SANDIP, B SARINA DEALER ACCOUNT MANAGER Unavailable Unavailable SANDIP, B SARINA DEALER ACCOUNT MANAGER Unavailable Unavailable SANDIP, B SARINA DEALER ACCOUNT MANAGER Unavailable Unavailable SANDIP, B SARINA DEALER ACCOUNT MANAGER Unavailable Unavailable SANDIP, B SARINA DEALER ACCOUNT MANAGER Unavailable Unavailable SANDIP, B SARINA DEALER ACCOUNT MANAGER Unavailable Unavailable SANDIP, B SARINA DEALER ACCOUNT MANAGER Unavailable Unavailable SANDIP, B SARINA DEALER ACCOUNT MANAGER Unavailable Unavailable SANDIP, B SARINA DEALER ACCOUNT MANAGER Unavailable Unavailable SANDIP, B SARINA DEALER ACCOUNT MANAGER Unavailable Unavailable SANDIP, B SARINA DEALER ACCOUNT MANAGER Unavailable Unavailable SANDIP, B SARINA DEALER ACCOUNT MANAGER Unavailable Unavailable SANDIP, B SARINA DEALER ACCOUNT MANAGER Unavailable Unavailable SANDIP, B SARINA DEALER ACCOUNT MANAGER Unavailable Unavailable SANDIP, B SARINA DEALER ACCOUNT MANAGER Unavailable Unavailable SANDIP, B SARINA DEALER ACCOUNT MANAGER Unavailable Unavailable SANDIP, B SARINA DEALER ACCOUNT MANAGER Unavailable Unavailable SANDIP, B SARINA DEALER ACCOUNT MANAGER Unavailable Unavailable SANDIP, B SARINA DEALER ACCOUNT MANAGER Unavailable Unavailable SANDIP, B SARINA DEALER ACCOUNT MANAGER Unavailable Unavailable SANDIP, B SARINA DEALER ACCOUNT MANAGER Unavailable Unavailable SANDIP, B SARINA DEALER ACCOUNT MANAGER Unavailable Unavailable SANDIP, B SARINA DEALER ACCOUNT MANAGER Unavailable Unavailable SANDIP, B SARINA DEALER ACCOUNT MANAGER Unavailable Unavailable SANDIP, B SARINA DEALER ACCOUNT MANAGER Unavailable Unavailable SANDIP, B SARINA DEALER ACCOUNT MANAGER Unavailable Unavailable SANDIP, B SARINA DEALER ACCOUNT MANAGER Unavailable Unavailable SANDIP, B SARINA DEALER ACCOUNT MANAGER Unavailable Unavailable SANDIP, B SARINA DEALER ACCOUNT MANAGER Unavailable Unavailable SANDIP, B SARINA DEALER ACCOUNT MANAGER Unavailable Unavailable SANDIP, B SARINA DEALER ACCOUNT MANAGER Unavailable Unavailable SANDIP, B SARINA DEALER ACCOUNT MANAGER Unavailable Unavailable SANDIP, B SARINA DEALER ACCOUNT MANAGER Unavailable Unavailable SANDIP, B SARINA DEALER ACCOUNT MANAGER Unavailable Unavailable SANDIP, B SARINA DEALER ACCOUNT MANAGER Unavailable Unavailable SANDIP, B SARINA DEALER ACCOUNT MANAGER Unavailable Unavailable SANDIP, B SARINA DEALER ACCOUNT MANAGER Unavailable Unavailable SANDIP, B SARINA DEALER ACCOUNT MANAGER Unavailable Unavailable SANDIP, B SARINA DEALER ACCOUNT MANAGER Unavailable Unavailable SANDIP, B SARINA DEALER ACCOUNT MANAGER Unavailable Unavailable SANDIP, B SARINA DEALER ACCOUNT MANAGER Unavailable Unavailable SANDIP, B SARINA DEALER ACCOUNT MANAGER Unavailable Unavailable Smith, N Marti PA Unavailable Unavailable Smith, N Marti PA Unavailable Unavailable Eric, Ninoska DEALER ACCOUNT MANAGER Unavailable Unavailable Eric, Ninoska DEALER ACCOUNT MANAGER Unavailable Unavailable Eric, Ninoska DEALER ACCOUNT MANAGER Unavailable Unavailable Eric, Ninoska DEALER ACCOUNT MANAGER Unavailable Unavailable Eric, Ninoska DEALER ACCOUNT MANAGER Unavailable Unavailable Eric, Ninoska DEALER ACCOUNT MANAGER Unavailable Unavailable Eric, Ninoska DEALER ACCOUNT MANAGER Unavailable Unavailable Eric, Ninoska DEALER ACCOUNT MANAGER Unavailable Unavailable Eric, Ninoska DEALER ACCOUNT MANAGER Unavailable Unavailable Eric, Ninoska DEALER ACCOUNT MANAGER Unavailable Unavailable Eric, Ninoska DEALER ACCOUNT MANAGER Unavailable Unavailable Eric, Ninoska DEALER ACCOUNT MANAGER Unavailable Unavailable Hughes, L Nisha DEALER ACCOUNT MANAGER Unavailable Unavailable Hughes, L Nisha DEALER ACCOUNT MANAGER Unavailable Unavailable Hughes, L Nisha DEALER ACCOUNT MANAGER Unavailable Unavailable Hughes, L Nisha DEALER ACCOUNT MANAGER Unavailable Unavailable Hughes, L Nisha DEALER ACCOUNT MANAGER Unavailable Unavailable Hughes, L Nisha DEALER ACCOUNT MANAGER Unavailable Unavailable Hughes, L Nisha DEALER ACCOUNT MANAGER Unavailable Unavailable Hughes, L Nisha DEALER ACCOUNT MANAGER Unavailable Unavailable Hughes, L Nisha DEALER ACCOUNT MANAGER Unavailable Unavailable Hughes, L Nisha DEALER ACCOUNT MANAGER Unavailable Unavailable Hughes, L Nisha DEALER ACCOUNT MANAGER Unavailable Unavailable Hughes, L Nisha DEALER ACCOUNT MANAGER Unavailable Unavailable Hughes, L Nisha DEALER ACCOUNT MANAGER Unavailable Unavailable Hughes, L Nisha DEALER ACCOUNT MANAGER Unavailable Unavailable Hughes, L Nisha DEALER ACCOUNT MANAGER Unavailable Unavailable Hughes, L Nisha DEALER ACCOUNT MANAGER Unavailable Unavailable Hughes, L Nisha DEALER ACCOUNT MANAGER Unavailable Unavailable Hughes, L Nisha DEALER ACCOUNT MANAGER Unavailable Unavailable Hughes, L Nisha DEALER ACCOUNT MANAGER Unavailable Unavailable Hughes, L Nisha DEALER ACCOUNT MANAGER Unavailable Unavailable Hughes, L Nisha DEALER ACCOUNT MANAGER Unavailable Unavailable Hughes, L Nisha DEALER ACCOUNT MANAGER Unavailable Unavailable Hughes, L Nisha DEALER ACCOUNT MANAGER Unavailable Unavailable Hughes, L Nisha DEALER ACCOUNT MANAGER Unavailable Unavailable Hughes, L Nisha DEALER ACCOUNT MANAGER Unavailable Unavailable Hughes, L Nisha DEALER ACCOUNT MANAGER Unavailable Unavailable Hughes, L Nisha DEALER ACCOUNT MANAGER Unavailable Unavailable Hughes, L Nisha DEALER ACCOUNT MANAGER Unavailable Unavailable Hughes, L Nisha DEALER ACCOUNT MANAGER Unavailable Unavailable Hughes, L Nisha DEALER ACCOUNT MANAGER Unavailable Unavailable Hughes, L Nisha DEALER ACCOUNT MANAGER Unavailable Unavailable Hughes, L Nisha DEALER ACCOUNT MANAGER Unavailable Unavailable Hughes, L Nisha DEALER ACCOUNT MANAGER Unavailable Unavailable Hughes, L Nisha DEALER ACCOUNT MANAGER Unavailable Unavailable Hughes, L Nisha DEALER ACCOUNT MANAGER Unavailable Unavailable Hughes, L Nisha DEALER ACCOUNT MANAGER Unavailable Unavailable Hughes, L Nisha DEALER ACCOUNT MANAGER Unavailable Unavailable Hughes, L Nisha DEALER ACCOUNT MANAGER Unavailable Unavailable Hughes, L Nisha DEALER ACCOUNT MANAGER Unavailable Unavailable Hughes, L Nisha DEALER ACCOUNT MANAGER Unavailable Unavailable Hughes, L Nisha DEALER ACCOUNT MANAGER Unavailable Unavailable Hughes, L Nisha DEALER ACCOUNT MANAGER Unavailable Unavailable Christiano Moore MD Unavailable Unavailable Christiano Moore MD Unavailable Unavailable Christiano Moore MD Unavailable Unavailable Christiano Moore MD Unavailable Unavailable Christiano Moore MD Unavailable Unavailable Christiano Moore MD Unavailable Unavailable Christiano Moore MD Unavailable Unavailable Christiano Moore MD Unavailable Unavailable Christiano Moore MD Unavailable Unavailable Christiano Moore MD Unavailable Unavailable Christiano Moore MD Unavailable Unavailable Christiano Moore MD Unavailable Unavailable Christiano Moore MD Unavailable Unavailable Christiano Moore MD Unavailable Unavailable Christiano Moore MD Unavailable Unavailable Christiano Moore MD Unavailable Unavailable Christiano Moore MD Unavailable Unavailable SOHAN, E JENNIFER DO Unavailable Unavailable SOHAN, E JENNIFER DO Unavailable Unavailable SOHAN, E JENNIFER DO Unavailable Unavailable SOHAN, E JENNIFER DO Unavailable Unavailable SOHAN, E JENNIFER DO Unavailable Unavailable SOHAN, E JENNIFER DO Unavailable Unavailable SOHAN, E JENNIFER DO Unavailable Unavailable SOHAN, E JENNIFER DO Unavailable Unavailable SOHAN, E JENNIFER DO Unavailable Unavailable SOHAN, E JENNIFER DO Unavailable Unavailable SOHAN, E JENNIFER DO Unavailable Unavailable SOHAN, E JENNIFER DO Unavailable Unavailable SOHAN, E JENNIFER DO Unavailable Unavailable SOHAN, E JENNIFER DO Unavailable Unavailable SOHAN, E JENNIFER DO Unavailable Unavailable SOHAN, E JENNIFER DO Unavailable Unavailable SOHAN, E JENNIFER DO Unavailable Unavailable SOHAN, E JENNIFER DO Unavailable Unavailable SOHAN, E JENNIFER DO Unavailable Unavailable SOHAN, E JENNIFER DO Unavailable Unavailable SOHAN, E JENNIFER DO Unavailable Unavailable SOAHN, E JENNIFER DO Unavailable Unavailable Kiera, A Nory DEALER ACCOUNT MANAGER Unavailable Unavailable Kiera, A Nory DEALER ACCOUNT MANAGER Unavailable Unavailable Kiera, A Nory DEALER ACCOUNT MANAGER Unavailable Unavailable Kiera, A Nory DEALER ACCOUNT MANAGER Unavailable Unavailable Kiera, A Nory DEALER ACCOUNT MANAGER Unavailable Unavailable Kiera, A Nory DEALER ACCOUNT MANAGER Unavailable Unavailable Kiera, A Nory DEALER ACCOUNT MANAGER Unavailable Unavailable Kiera, A Nory DEALER ACCOUNT MANAGER Unavailable Unavailable Kiera, A Nory DEALER ACCOUNT MANAGER Unavailable Unavailable Kiera, A Nory DEALER ACCOUNT MANAGER Unavailable Unavailable Kiera, A Nory DEALER ACCOUNT MANAGER Unavailable Unavailable Kiera, A Nory DEALER ACCOUNT MANAGER Unavailable Unavailable Kiera, A Nory DEALER ACCOUNT MANAGER Unavailable Unavailable Kiera, A Nory DEALER ACCOUNT MANAGER Unavailable Unavailable Kiera, A Nory DEALER ACCOUNT MANAGER Unavailable Unavailable Kiera, A Nory DEALER ACCOUNT MANAGER Unavailable Unavailable Kiera, A Nory DEALER ACCOUNT MANAGER Unavailable Unavailable Kiera, A Nory DEALER ACCOUNT MANAGER Unavailable Unavailable Kiera, A Nory DEALER ACCOUNT MANAGER Unavailable Unavailable Kiera, A Nory DEALER ACCOUNT MANAGER Unavailable Unavailable Kiera, A Nory DEALER ACCOUNT MANAGER Unavailable Unavailable Kiera, A Nory DEALER ACCOUNT MANAGER Unavailable Unavailable Kiera, A Nory DEALER ACCOUNT MANAGER Unavailable Unavailable Kiera, A Nory DEALER ACCOUNT MANAGER Unavailable Unavailable Kiera, A Nory DEALER ACCOUNT MANAGER Unavailable Unavailable Kiera, A Nory DEALER ACCOUNT MANAGER Unavailable Unavailable Kiera, A Nory DEALER ACCOUNT MANAGER Unavailable Unavailable Kiera, A Nory DEALER ACCOUNT MANAGER Unavailable Unavailable Kiera, A Nory DEALER ACCOUNT MANAGER Unavailable Unavailable Kiera, A Nory DEALER ACCOUNT MANAGER Unavailable Unavailable Kiera, A Nory DEALER ACCOUNT MANAGER Unavailable Unavailable Kiera, A Nory DEALER ACCOUNT MANAGER Unavailable Unavailable Kiera, A Nory DEALER ACCOUNT MANAGER Unavailable Unavailable Kiera, A Nory DEALER ACCOUNT MANAGER Unavailable Unavailable Kiera, A Nory DEALER ACCOUNT MANAGER Unavailable Unavailable Kiera, A Nory DEALER ACCOUNT MANAGER Unavailable Unavailable Kiera, A Nory DEALER ACCOUNT MANAGER Unavailable Unavailable Kiera, A Nory DEALER ACCOUNT MANAGER Unavailable Unavailable Kiera, A Nory DEALER ACCOUNT MANAGER Unavailable Unavailable Kiera, A Nory DEALER ACCOUNT MANAGER Unavailable Unavailable Kiera, A Nory DEALER ACCOUNT MANAGER Unavailable Unavailable Kiera, A Nory DEALER ACCOUNT MANAGER Unavailable Unavailable Kiera, A Nory DEALER ACCOUNT MANAGER Unavailable Unavailable Kiera, A Nory DEALER ACCOUNT MANAGER Unavailable Unavailable Kiera, A Nory DEALER ACCOUNT MANAGER Unavailable Unavailable Kiera, A Nory DEALER ACCOUNT MANAGER Unavailable Unavailable Re-disclosure Warning The records that you are about to access may contain information from federally-assisted alcohol or drug abuse programs. If such information is present, then the following federally mandated warning applies: This information has been disclosed to you from records protected by federal confidentiality rules (42 CFR part 2). The federal rules prohibit you from making any further disclosure of this information unless further disclosure is expressly permitted by the written consent of the person to whom it pertains or as otherwise permitted by 42 CFR part 2. A general authorization for the release of medical or other information is NOT sufficient for this purpose. The Federal rules restrict any use of the information to criminally investigate or prosecute any alcohol or drug abuse patient.The records that you are about to access may contain highly sensitive health information, the redisclosure of which is protected by Article 27-F of the [facility] Public Health law. If you continue you may have access to information: Regarding HIV / AIDS; Provided by facilities licensed or operated by the [facility] Office of Mental Health; or Provided by the [facility] Office for People With Developmental Disabilities. If such information is present, then the following [facility] mandated warning applies: This information has been disclosed to you from confidential records which are protected by state law. State law prohibits you from making any further disclosure of this information without the specific written consent of the person to whom it pertains, or as otherwise permitted by law. Any unauthorized further disclosure in violation of state law may result in a fine or alf sentence or both. A general authorization for the release of medical or other information is NOT sufficient authorization for further disc losure. Allergies and Adverse Reactions Type Description Substance Reaction Status Data Source(s ) Drug allergy cefaclor Cefaclor Anaphylaxis SV Hives [facility] Food allergy No Known Food Allergies No Known Food Allergies [facility] Drug allergy Cephalosporins Cephalosporins Anaphylaxis SV [facility] Family History Family Member Name Family Member Gender Family Member Status Date o f Status Description Data Source(s) Unknown Condition [facility] Unknown Condition [facility] Hospital Unknown Condition [facility] Unknown Condition [facility] Unknown Condition [facility] Unknown Condition [facility] Unknown Condition [facility] Unknown Condition [facility] Unknown Condition [facility] Condition [facility] Unknown Condition [facility] Unknown Condition [facility] Unknown Condition [facility] Condition [facility] Unknown Condition [facility] Unknown Condition [facility] Unknown Condition [facility] Unknown Condition [facility] Hospital Unknown Condition [facility] Unknown Condition [facility] Encounters Encounter Providers Location Date Indications Data Source(s ) Outpatient Attender: Jocelyn Raineferrer: Jocelyn Humphries NP 01/06/2021 10:40:[address] [facility] Outpatient Attender: Jocelyn Humphries NP 01/06/2021 08:47:00 AM E DT E11.9 [facility] E11.9 Outpatient Attender: Jocelyn Raineferrer: Jocelyn Humphries NP 12/16/2020 09:54:00 AM EDT - 12/16/2020 10:46:00 AM EDT [facility] Outpatient [address] [facility], [facility] [id number] 11/10/2020 12:00:00 AM EDT eCW1 ([facility]) Unknown [address] [facility] [id number] 11/05/2020 12:00:00 AM EDT eCW1 ([facility]) Outpatient [address] [facility] [address] 10/13/2020 12:00:00 AM EDT eCW1 ([facility]) Emergency Attender: Nino Moore MDAttender: Nunu ward MD 10/11/2020 06:14:00 PM EDT - 10/11/2020 08:59:00 PM EDT BLADDER ISSUES [facility] BLADDER ISSUES Patient discharged. Outpatient Attender: Nory Qureshi NP 10/09/2020 03:08:00 PM EDT [facility] Unknown [address] [facility], [facility] [id number] 10/09/2020 12:00:00 AM EDT eCW1 ([facility]) (BC Biopsy) [facility] [address] [place] [address] 10/08/2020 12:00:00 AM EDT eCW1 ([facility]) Outpatient [address] [facility], [facility] [id number] 10/01/2020 12:00:00 AM EDT eCW1 ([facility]) Outpatient Attender: Jocelyn Humphries NP 09/19/2020 07:54:00 AM E DT extra views [facility] extra views Outpatient Attender: Jocelyn Humphries NP 09/16/2020 02:33:00 PM E DT SCREENING [facility] SCREENING Outpatient Attender: Jocelyn Humphries NPReferrer: Jocelyn Humphries NP 09/16/2020 01:11:00 PM EDT - 09/16/2020 02:45:00 PM EDT [facility] Outpatient Attender: JENNIFER Caputo/Bam/Kevin/Praful santiago 09/15/2020 11:15:00 AM EDT [facility] ([facility]) Outpatient Attender: Jocelyn Humphries NP 08/21/2020 09:27:00 AM E DT PREOP/Z01.818 [facility] PREOP/Z01.818 Outpatient Attender: Nisha Hughes NPReferrer: Jocelyn Humphries NP 07/25/2020 03:34:00 PM EDT - 07/25/2020 04:18:00 PM EDT [facility] Outpatient [address] [facility] [address] 07/07/2020 12:00:00 AM EDT eCW1 ([facility]) Outpatient Attender: JENNIFER SOHAN DO Karena/[place]/Kevin/Reind l 06/27/2020 10:15:00 AM EDT [facility] ([facility]) Outpatient Attender: SARINA OROPEZA NP Physical Therapy 01:15:00 PM EST [facility] ([facility]) Office Visit Attender: JENNIFERFADY PARRY DO [place]/Kevin/Reind l 05/12/2020 07:30:00 AM EST [facility] ([facility]) Office Visit Attender: JENNIFER SOHAN DO Karen[place]/Kevin/Reind l 04/18/2020 09:15:00 AM EST [facility] ([facility]) Office Visit Attender: JENNIFER SOHAN DO Karen[place]/Kevin/Reind l 04/04/2020 10:30:00 AM EST [facility] ([facility]) Outpatient Attender: Jocelyn Raineferrer: Ninoska Reyes NP 03/19/2020 09:50:00 AM EST [facility] Outpatient Attender: Marti MONCADA [facility] 05/18/2019 01:00:00 PM EST [facility] ([facility]) Outpatient Attender: Jocelyn Humphries NP 03/13/2020 07:25:[address] PREOP N65.0 [facility] PREOP N65.0 Outpatient Attender: SARINA OROPEZA NP Physical Therapy 09:00:00 AM EST [facility] ([facility]) Outpatient Attender: Jocelyn Lucianoerrer: Ninoska Reyes NP 02/06/2020 11:15:[address] [facility] l Outpatient Attender: Ninoska Reyes NP 02/02/2020 09:27: 00 AM EST I10 [facility] I10 Outpatient Attender: Ninoska Reyes NP 01/17/2020 12:26: 00 PM EDT R39.15 [facility] R39.15 Outpatient Attender: Ninoska Reyes NPReferrer: Jocelyn Humphries NP 01/17/2020 09:34:[address] [facility] l Outpatient Attender: JENNIFER Caputo/Bam/Kevin/Praful santiago 12/26/2019 09:15:00 AM EDT [facility] ([facility], ) Immunizations Vaccine Date Status Description Data Source(s) COVID-19 Vaccine Gladys (J&J) 08/01/2020 12:00:00 AM EDT completed [facility] COVID-19 VACCINE Gladys 08/01/2020 12:00:00 AM EDT [facility] Complete: YESThis [facility] wa [facility] [employer]. [employer] 07/04/2020 12:00:00 AM EDT completed [facility] IIV3. This is one of two codes replacing CVX 15, which is being retired. 02/06/2020 12:00:00 AM EST completed [facility] IIV3. This is one of two codes replacing CVX 15, which is being retired. 02/06/2020 12:00:00 AM EST completed influenza vaccine, inactivated [facility] IIV3. This is one of two codes replacing CVX 15, which is being retired. 02/06/2020 12:00:00 AM EST completed influenza vaccine, inactivated [facility] Medications Medication Brand Name Start Date Product Form Dose Route Admi nistrative Instructions Pharmacy Instructions Status Indications Reaction Description Data Source(s) 250 mg 01/03/2021 12:00:00 AM EDT tablet 6 TAKE TWO TABLETS BY MOUTH AT ONCE ON THE FIRST DAY THEN TAKE ONE DAILY THEREAFTER TAKE TWO TABLETS BY MOUTH AT ONCE ON THE FIRST DAY THEN TAKE ONE DAILY THEREAFTER SOLD: 01/03/2021 [facility] 5 mg 12/16/2020 12:00:00 AM EDT tablet 90 TAKE ONE TABLET BY MOUTH EVERY DAY TAKE ONE TABLET BY MOUTH EVERY DAY SOLD: 12/19/2020 [facility] 100 mg 11/06/2020 12:00:00 AM EDT tablet 90 TAKE ONE TABLET BY MOUTH EVERY DAY TAKE ONE TABLET BY MOUTH EVERY DAY SOLD: 11/07/2020 [facility] 0.25 mg or 0.5 mg(2 mg/1.5 mL) 10/13/2020 12:00:00 AM EDT pe n injector 4 INJECT 0.5MG (0.4ML) SUBCUTANEOUSLY ONCE WEEKLY INJECT 0.5MG (0.4ML) SUBCUTANEOUSLY ONCE WEEKLY SOLD: 01/06/2021 [facility] 0.25 mg or 0.5 mg(2 mg/1.5 mL) 10/13/2020 12:00:00 AM EDT pe n injector 4 INJECT 0.5MG (0.4ML) SUBCUTANEOUSLY ONCE WEEKLY INJECT 0.5MG (0.4ML) SUBCUTANEOUSLY ONCE WEEKLY SOLD: 10/14/2020 [facility] 500 mg 10/12/2020 12:00:00 AM EDT tablet 14 TAKE ONE TABLET BY MOUTH EVERY 12 HOURS TAKE ONE TABLET BY MOUTH EVERY 12 HOURS SOLD: 10/12/2020 [facility] Ciprofloxacin 500 MG Oral Tablet Ciprofloxacin Hcl (Ci pro) 500 mg tablet Ciprofloxacin Hcl (Cipro) 500 mg tablet 10/11/2020 08:46:40 PM EDT 50 0 MG active [facility] NITROFURANTOIN, MACROCRYSTALS 100 MG Oral Capsule Nitr ofurantoin [place] Nitrofurantoin Macrocrystal 10/09/2020 02:21:02 PM EDT [address] [facility] 100 mg 10/09/2020 12:00:00 AM EDT capsule 14 TAKE ONE CAPSULE BY MOUTH TWICE A DAY WITH A MEAL / FOOD FOR 7 DAYS TAKE ONE CAPSULE BY MOUTH TWICE A DAY WI TH A MEAL / FOOD FOR 7 DAYS SOLD: 10/09/2020 [facility] Semaglutide (Ozempic) 0.25 mg or 0.5 mg(2 mg/1.5 mL) pen inj josue 09/16/2020 02:38:05 PM EDT 0.5 MG active [facility] 24 HR Metformin hydrochloride 500 MG Extended Release Oral T ablet Metformin 09/16/2020 02:37:30 PM EDT 500 MG active [facility] 500 mg 07/29/2020 12:00:00 AM EDT tablet extended release 24 hr 360 TAKE 2 TABLETS BY MOUTH TWO TIMES A DAY TAKE 2 TABLETS BY MOUTH TWO TIMES A DAY SOLD: 08/01/2020 [facility] 0.25 mg or 0.5 mg(2 mg/1.5 mL) 06/19/2020 12:00:00 AM EDT pe n injector 1 INJECT 0.5MG ONCE WEEKLY INJECT 0.5MG ONCE WEEKLY SOLD: 07/23/2020 [facility] 0.25 mg or 0.5 mg(2 mg/1.5 mL) 06/19/2020 12:00:00 AM EDT pe n injector 1 INJECT 0.5MG ONCE WEEKLY INJECT 0.5MG ONCE WEEKLY SOLD: 09/16/2020 [facility] 0.25 mg or 0.5 mg(2 mg/1.5 mL) 06/19/2020 12:00:00 AM EDT pe n injector 1 INJECT 0.5MG ONCE WEEKLY INJECT 0.5MG ONCE WEEKLY SOLD: 06/24/2020 [facility] 0.25 mg or 0.5 mg(2 mg/1.5 mL) 06/19/2020 12:00:00 AM EDT pe n injector 1 INJECT 0.5MG ONCE WEEKLY INJECT 0.5MG ONCE WEEKLY SOLD: 08/19/2020 [facility] 875-125 mg 06/15/2020 12:00:00 AM EDT tablet 20 TAKE ONE TABLET BY MOUTH TWICE A DAY FOR TEN DAYS TAKE ONE TABLET BY MOUTH TWICE A DAY FOR TEN DAYS SOLD : 06/15/2020 [facility] Sulfamethoxazole 800 MG / Trimethoprim 160 MG Oral Tab let 800-160 mg SULFAMETHOXAZOLE/TRIMETHOPRIM 06/09/2020 12:00:00 AM EDT tablet 20 TAKE ONE TABLET BY MOUTH TWICE A DAY FOR 10 DAYS TAKE ONE TABLET BY MOUTH TWICE A DAY FOR 10 DAYS SOLD: 06/09/2020 [facility] 5 mg 05/29/2020 12:00:00 AM EST tablet 90 TAKE ONE TABLET BY MOUTH EVERY DAY TAKE ONE TABLET BY MOUTH EVERY DAY SOLD: 09/04/2020 [facility] 5 mg 05/29/2020 12:00:00 AM EST tablet 90 TAKE ONE TABLET BY MOUTH EVERY DAY TAKE ONE TABLET BY MOUTH EVERY DAY SOLD: 06/02/2020 [facility] Fosinopril Sodium 20 MG Oral Tablet Fosinopril 04/28/2020 09:09:32 AM EST 0 active [facility] Sertraline 100 MG Oral Tablet Sertraline 04/28/2020 09:09:29 AM EST 0 active [facility] 100 mg 04/28/2020 12:00:00 AM EST tablet 90 TAKE ONE TABLET BY MOUTH EVERY DAY TAKE ONE TABLET BY MOUTH EVERY DAY SOLD: 08/10/2020 [facility] 20 mg 04/28/2020 12:00:00 AM EST tablet 90 TAKE ONE TABLET BY MOUTH EVERY DAY TAKE ONE TABLET BY MOUTH EVERY DAY SOLD: 05/07/2020 [facility] 20 mg 04/28/2020 12:00:00 AM EST tablet 90 TAKE ONE TABLET BY MOUTH EVERY DAY TAKE ONE TABLET BY MOUTH EVERY DAY SOLD: 08/10/2020 [facility] 100 mg 04/28/2020 12:00:00 AM EST tablet 90 TAKE ONE TABLET BY MOUTH EVERY DAY TAKE ONE TABLET BY MOUTH EVERY DAY SOLD: 05/07/2020 [facility] 20 mg 04/28/2020 12:00:00 AM EST tablet 90 TAKE ONE TABLET BY MOUTH EVERY DAY TAKE ONE TABLET BY MOUTH EVERY DAY SOLD: 11/07/2020 [facility] carvedilol 6.25 MG Oral Tablet Carvedilol Carvedilol 2020 01:57:37 PM EST 6.25 MG active [facility] carvedilol 6.25 MG Oral Tablet CARVEDILOL 04/02/2020 12:00:00 AM EST tablet 90 TAKE ONE TABLET BY MOUTH EVERY DAY AT BEDTIME TAKE ONE TABLET BY MOUTH EVERY DAY AT BEDTIME SOLD: 04/02/2020 [facility] carvedilol 6.25 MG Oral Tablet CARVEDILOL 04/02/2020 12:00:00 AM EST tablet 90 TAKE ONE TABLET BY MOUTH EVERY DAY AT BEDTIME TAKE ONE TABLET BY MOUTH EVERY DAY AT BEDTIME SOLD: 10/05/2020 [facility] 5-325 mg 04/02/2020 12:00:00 AM EST tablet 20 TAKE ONE TABLET BY MOUTH EVERY 6 HOURS FOR PAIN LEVEL 8-10 MAXIMUM DAILY DOSE = 4 TABLETS TAKE ONE TABLET BY MOUTH EVERY 6 HOURS FOR PAIN LEVEL 8-10 MAXIMUM DAILY DOSE = 4 TABLETS SOLD: 04/02/2020 [facility] carvedilol 6.25 MG Oral Tablet CARVEDILOL 04/02/2020 12:00:00 AM EST tablet 90 TAKE ONE TABLET BY MOUTH EVERY DAY AT BEDTIME TAKE ONE TABLET BY MOUTH EVERY DAY AT BEDTIME SOLD: 07/05/2020 [facility] Semaglutide (Ozempic) 0.25 mg or 0.5 mg(2 mg/1.5 mL) pen inj josue 03/05/2020 06:48:26 AM EST 0.5 MG active [facility] Semaglutide (Ozempic) 0.25 mg or 0.5 mg(2 mg/1.5 mL) pen inj josue 03/05/2020 06:48:26 AM EST 0.5 MG completed [facility] 500 mg 02/07/2020 12:00:00 AM EST tablet extended release 24 hr 360 TAKE TWO TABLETS BY MOUTH TWICE A DAY MAXIMUM DAILY DOSE = 4 TAKE TWO TABLETS BY MOUTH TWICE A DAY MAXIMUM DAILY DOSE = 4 SOLD: 02/17/2020 [facility] Ozempic (0.25 Or 0.5 MG/Dose) Ozempic (0.25 Or 0.5 MG/Dose) 02/07/2020 12:00:00 AM EST active [facility] ([facility]) 0.25 mg or 0.5 mg(2 mg/1.5 mL) 02/07/2020 12:00:00 AM EST pe n injector 1 USE 0.25MG WEEKLY FOR 4 WEEKS THEN INCREASE 0.5MG WEEKLY USE 0.25MG WEEKLY FOR 4 WEEKS THEN INCREASE 0.5MG WEEKLY SOLD: 05/07/2020 [facility] 0.25 mg or 0.5 mg(2 mg/1.5 mL) 02/07/2020 12:00:00 AM EST pe n injector 1 USE 0.25MG WEEKLY FOR 4 WEEKS THEN INCREASE 0.5MG WEEKLY USE 0.25MG WEEKLY FOR 4 WEEKS THEN INCREASE 0.5MG WEEKLY SOLD: 02/17/2020 [facility] 0.25 mg or 0.5 mg(2 mg/1.5 mL) 02/07/2020 12:00:00 AM EST pe n injector 1 USE 0.25MG WEEKLY FOR 4 WEEKS THEN INCREASE 0.5MG WEEKLY USE 0.25MG WEEKLY FOR 4 WEEKS THEN INCREASE 0.5MG WEEKLY SOLD: 04/02/2020 [facility] Afluria Qd (3yr up)(PF) (flu vac [id number] 36mos up(P F)) 02/06/2020 11:15:34 AM EST 0.5 ML completed [facility] Afluria Qd 2019-(3yr up)(PF) (flu vac [id number] 36mos up(P F)) 02/06/2020 11:15:34 AM EST 0.5 ML completed [facility] Afluria Qd 2019-21(3yr up)(PF) (flu vac [id number] 36mos up(P F)) 02/06/2020 11:15:34 AM EST 0.5 ML completed [facility] Ciprofloxacin 500 MG Oral Tablet Ciprofloxacin Hcl Ciproflox acin Hcl 01/17/2020 10:23:33 AM EDT 500 MG active [facility] Ciprofloxacin 500 MG Oral Tablet Ciprofloxacin Hcl Ciproflox acin Hcl 01/17/2020 10:23:33 AM EDT 500 MG active [facility] Ciprofloxacin 500 MG Oral Tablet Ciprofloxacin Hcl Ciproflox acin Hcl 01/17/2020 10:23:33 AM EDT 500 MG completed [facility] Ciprofloxacin 500 MG Oral Tablet Ciprofloxacin Hcl Ciproflox acin Hcl 01/17/2020 10:23:33 AM EDT 500 MG active [facility] 500 mg 01/17/2020 12:00:00 AM EDT tablet 14 TAKE ONE TABLET BY MOUTH TWICE A DAY TAKE ONE TABLET BY MOUTH TWICE A DAY SOLD: 01/17/2020 [facility] 500 mg 12/21/2019 12:00:00 AM EDT tablet 180 TAKE ONE TABLET BY MOUTH TWICE A DAY NEEDED TAKE ONE TABLET BY MOUTH TWICE A DAY NEEDED SOLD: 021 [facility] 500 mg 12/21/2019 12:00:00 AM EDT tablet 180 TAKE ONE TABLET BY MOUTH TWICE A DAY NEEDED TAKE ONE TABLET BY MOUTH TWICE A DAY NEEDED SOLD: 020 [facility] 500 mg 12/21/2019 12:00:00 AM EDT tablet 180 TAKE ONE TABLET BY MOUTH TWICE A DAY NEEDED TAKE ONE TABLET BY MOUTH TWICE A DAY NEEDED SOLD: 021 [facility] Naproxen 500 MG Oral Tablet Naproxen 12/20/2019 04:30:21 PM EDT 500 MG active [facility] Naproxen 500 MG Oral Tablet Naproxen 12/20/2019 04:30:21 PM EDT 500 MG active [facility] Naproxen 500 MG Oral Tablet Naproxen 12/20/2019 04:30:21 PM EDT 500 MG active [facility] Naproxen 500 MG Oral Tablet Naproxen 12/20/2019 04:30:21 PM EDT 500 MG active [facility] 5 mg/gram (0.5 %) 12/20/2019 12:00:00 AM EDT ointment 3 APPLY 1/2" APPLICATION TO AFFECTED EYE(S) THREE TIMES A DAY FOR 7 DAYS APPLY 1/2" APPLICATION TO AFFECTED EYE(S) THREE TIMES A DAY FOR 7 DAYS SOLD: 12/20/2019 [facility]-125 mg 12/20/2019 12:00:00 AM EDT tablet 14 TAKE ONE TABLET BY MOUTH TWICE A DAY FOR 7 DAYS TAKE ONE TABLET BY MOUTH TWICE A DAY FOR 7 DAYS SOLD: 12/20/2019 [facility] Sertraline 100 MG Oral Tablet Sertraline 10/31/2019 08:09:27 AM EDT 100 MG [facility] 100 mg 10/31/2019 12:00:00 AM EDT tablet 90 TAKE ONE TABLET BY MOUTH EVERY DAY TAKE ONE TABLET BY MOUTH EVERY DAY SOLD: 01/29/2020 [facility] carvedilol 6.25 MG Oral Tablet CARVEDILOL 09/25/2019 12:00:00 AM EDT tablet 90 TAKE ONE TABLET BY MOUTH EVERY DAY AT BEDTIME TAKE ONE TABLET BY MOUTH EVERY DAY AT BEDTIME SOLD: 12/26/2019 [facility] carvedilol 6.25 MG Oral Tablet Carvedilol Carvedilol 2019 07:46:45 PM EDT 6.25 MG [facility] Fosinopril Sodium 20 MG Oral Tablet Fosinopril 09/24/2019 07:46:0 5 PM EDT 20 MG [facility] 24 HR Metformin hydrochloride 500 MG Extended Release Oral T ablet Metformin 09/24/2019 07:44:30 PM EDT 500 MG [facility] Rosuvastatin calcium 5 MG Oral Tablet ROSUVASTATIN CALCIUM 0 05/28/2019 12:00:00 AM EST tablet 90 TAKE ONE TABLET BY MOUTH [place] RY DAY TAKE ONE TABLET BY MOUTH EVERY DAY SOLD: 11/28/2019 [facility] 5 mg 05/28/2019 12:00:00 AM EST tablet 90 TAKE ONE TABLET BY MOUTH EVERY DAY TAKE ONE TABLET BY MOUTH EVERY DAY SOLD: 03/02/2020 [facility] 20 mg 04/23/2019 12:00:00 AM EST tablet 90 TAKE ONE TABLET BY MOUTH EVERY DAY TAKE ONE TABLET BY MOUTH EVERY DAY SOLD: 01/29/2020 [facility] 500 mg 04/19/2019 12:00:00 AM EST tablet extended release 24 hr 60 TAKE ONE TABLET BY MOUTH TWICE A DAY TAKE ONE TABLET BY MOUTH TWICE A DAY SOLD: 01/29/2020 [facility] 500 mg 04/19/2019 12:00:00 AM EST tablet extended release 24 hr 60 TAKE ONE TABLET BY MOUTH TWICE A DAY TAKE ONE TABLET BY MOUTH TWICE A DAY SOLD: 12/27/2019 [facility] 500 mg 04/19/2019 12:00:00 AM EST tablet extended release 24 hr 60 TAKE ONE TABLET BY MOUTH TWICE A DAY TAKE ONE TABLET BY MOUTH TWICE A DAY SOLD: 11/28/2019 [facility] Naproxen 500 MG Oral Tablet Naproxen 09/18/2018 02:49:53 PM EDT 500 MG completed [facility] Naproxen 500 MG Oral Tablet Naproxen 09/18/2018 02:49:53 PM EDT 500 MG completed [facility] Naproxen 500 MG Oral Tablet Naproxen 09/18/2018 02:49:53 PM EDT 500 MG completed [facility] Naproxen 500 MG Oral Tablet Naproxen 09/18/2018 02:49:53 PM EDT 500 MG [facility] Insurance Providers Payer name Policy type / Coverage type Policy ID Covered constitution party ID Covered constitution party's relationship to ramirez Policy Ramirez Plan Information BCBS [facility] DIV [id number] SP [id number] [facility] [id number] SP [id number] [employer] Other 0 [id number] Self 0 [employer] Other [id number] [facility] Health Maintenance Organization (HMO) [id number] Self [id number] [facility] Other [id number] Self 0 [facility] Health Maintenance Organization (O) [id number] Self [id number] [employer] ([facility]) P [id number] S [id number] [facility] [id number] SP [id number] [facility] [id number] SP [id number] P UNAVAILABLE UNAVAILA BLE Problems, Conditions, and Diagnoses Code Display Name Description Problem Type Effective Dates Data Source(s) R92.8 [id number] Abnormal mammogram of right breast Proble m 10/01/2020 12:00:00 AM EDT eCW1 ([facility]) Z85.3 [id number] History of right breast cancer Problem 10/01/2020 12:00:00 AM EDT eCW1 ([facility]) [id number] Pure hypercholesterolemia Pure hypercholesterolemia Pr oblem 02/06/2020 12:00:00 AM EST [facility] ([facility] ) [id number] Essential hypertension Essential hypertension Problem 02/06/2020 12:00:00 AM EST [facility] ([facility]) [id number] Essential hypertension Essential hypertension Problem 12/26/2019 12:00:00 AM EDT [facility] Surgeries/Procedures Procedure Description Date Indications Data Source(s) Urine Culture 10/11/2020 12:00:00 AM [facility] Urine culture (procedure) 10/09/2020 12:00:00 AM [facility] Ultrasonography of breast (procedure) 09/19/2020 08:39 :00 AM [facility] 3D DIG MAMMO DIAG RT 09/19/2020 08:14:00 AM [facility] 3D DIG MAMMO SCREEN BILAT 09/16/2020 01:07:00 PM [facility] OFFICE OUTPATIENT VISIT 15 MINUTES 09/15/2020 12:00:00 AM EDT [facility] OFFICE OUTPATIENT VISIT 25 MINUTES 06/27/2020 12:00:00 AM EDT MEDLIDIA ([facility], ) MASTOPEXY 04/01/2020 12:00:00 AM EST M EDENT ([facility], ) REDUCTION MAMMAPLASTY 04/01/2020 12:00:00 AM EST [facility] ([facility], ) Diabetic Foot Exam 02/07/2020 12:00:00 AM EST [facility] ([facility] ) Urine culture (procedure) 01/17/2020 12:00:00 AM [facility] Urine culture (procedure) 01/17/2020 12:00:00 AM [facility] Urine culture (procedure) 01/17/2020 12:00:00 AM [facility] Results ID Date Data Source [id number] 01/06/2021 10:51:00 AM [facility] Patient Name: SONU LIANG : 1965 Sex: F Pt Unit #: [id number] Location:[facility] Provider: Visit Date/Time: 01/06/21 Primary Insurance: [employer] Secondary Insurance: Self Pay Intake Vital Signs 01/06/21 10:51 Current Height 5 ft 5 in Current Weight 209 lb Weight Measurement Method Standing Scale BMI 34.7 BP 120/60 Blood Pressure Location Lt brachial Position Sitting Respiration 18 Pulse 72 Pulse Strength Normal Pulse Source Pulse Oximeter Pulse Oximetry (%) 100 Oxygen Delivery Method room air Intake Visit Reasons: Pre-operative H P Nurse Note: pt is here today for pre op pt is having surgery on 01/13/21 she is having a fat transfer from abdomen to breast Is patient in pain?: Yes (headache ) Pain scale (1-10): 3 Allergies cefaclor [From Ceclor] Allergy (Severe, Verified 10/11/20 20:10) Anaphylaxis Cephalosporins Allergy (Severe, Verified 10/11/20 20:10) Anaphylaxis No Known Food Allergies Allergy (Verified 10/11/20 20:10) Fall Risk History of falls: No Ambulatory Aid:: None Gait/Transferring:: Normal Medications:: No High Risk Medications and Antihypertensives HIV Testing Offer - ages 13-64 Requirement for HIV testing offer been met?: Carmen wong today. Pretest education received and acknowledged Coronavirus Screening Screening Are you currently positive or on isolation for COVID ?: No Do you have any NEW signs of one or more of the following?: no symptoms Do you have NEW signs of at least two of the following?: no symptoms HPI Pre-Operative H P HERE FOR MEDICAL CLEARANCE. HAVING BREAST RECONSTRUCTION D/T BREAST CANCER. SINUS DRAINAGE X 2 WEEKS. LOTS OF PND. NO FEVER. HAS ALLERGIES. TAKES ALLERGY MEDS NEEDED. SLIGHT COUGH, "CLEARS THROAT" Surgery Information Proposed Surgical Procedure: BILATERAL BREAST RECONSTRUCTION Date of surgery: 01/13/21 Surgeon: DR. SABA PARRY Anesthesia: general Covid Screening Pre- Op Covid testing ordered?: Yes Exercise tolerance Can climb one flight of stairs (12-13 steps) in less than 30 seconds without stopping and without symptoms: Yes Risk factors Active cardiac conditions: none Active risk factors: hx of diabetes mellitus Sleep apnea risks: No Pertinent Past History Medical History: Diabetes mellitus and Hypertension Previous surgical complications: No Previous anesthesia intolerance: No Steroid use in last 6 months: No Allergies to meds or foods: Yes (CECLOR, BRUSSEL SPROUTS) Pertinent Family History Family hx adverse reaction to anesthesia: No Family history coagulopathy: No Menstrual History Menopausal?: Yes (HAL 2007) ?: No Nursing?: No Surgical Risk Surgical risk for this patient: Low PFSH Medical History Allergic rhinitis Atypical chest pain Benign essential hypertension Bunion Left Carcinoma of breast ( 08/2008) Carcinoma of breast (06/27/14) Congenital accessory skin tag Depressive disorder Depressive disorder (07/16/14) Fatigue Fatigue (06/27/14) Glaucoma Muscle spasms of head and/or neck Obesity Obesity (07/16/14) Otalgia Plantar fasciitis of right foot (08/18/15) Pure hypercholesterolemia recurrent sinusitis Right upper quadrant pain Seborrheic keratoses, inflamed Skin irritation Vertigo (08/25/17) Vitamin D deficiency Vitamin D deficiency (07/16/14) Surgical History abdomino-vaginal vesical neck suspension adenoidectomy History of - surgery History of - surgery History of - surgery History of - surgery History of hysterectomy History of sinus surgery Status post tonsillectomy Family History Mother Diabetes Hypertension Father Heart disease Hypertension Aunt No problems noted. Social History Does the Patient have a Healthcare Proxy: No Does Patient have a DNR?: No Does Patient have a Living Will?: No Does the Patient have a MOLST?: No Advance Directives on File or in chart?: No Hx Recent Travel (where): No Smoking Status: Never smoker Review of Systems Const All systems reviewed are unremarkable except as noted in HPI and below Denies chills, Denies fatigue, Denies fever(s) and Reports headache(s) (SINUS PRESSURE) Eyes Denies blurry vision, Denies diplopia and Denies eye discharge ENT Denies dizziness, Reports headache(s) (SINUS PRESSURE), Reports nasal congestion, Reports nasal discharge (CLEAR), Reports sinus pressure and Denies sore throat Details: SINUS SURGERY IN 2000 Card Denies chest pain and Denies dyspnea Resp Reports cough (GREENISH SPUTUM IN AM. CLEARS UP DAY PROGRESSES) and Denies dyspnea GI Denies constipation, Denies heartburn, Denies diarrhea, Denies nausea and Denies vomiting Genitourinary: Denies dysuria, urinary frequency or urinary urgency Musc Denies back pain, Denies myalgias and Denies arthralgias Skin/Breast Reports change in breast shape (D/T BREAST RECONSTRUCTION SURGERY) Neuro Denies dizziness, Reports headache(s) (SINUS PRESSURE) and Denies paresthesias Psych Denies anxiety and Denies depression Endo Denies fatigue Franco/Lymph Denies easy bleeding and Denies easy bruising Aller/Immun Reports seasonal rhinorrhea Exam Const General: cooperative, healthy appearing and well developed Nutritional Appearance: average body habitus Orientation: alert, oriented x3 and oriented to time [facility] Head: normal to inspection Ears: hearing grossly normal bilaterally and TM abnormal retracted bilaterally General nose exam: external nose normal and mucous membranes and turbinates abnormal boggy and pale Face and sinus: normal facial exam Mouth: oral mucosae normal Throat: posterior oropharynx normal Eyes Alignment and Position: alignment normal Periorbital: periorbital findings normal Eyelids: eyelids normal Conjunctivae: conjunctivae normal Sclera: sclerae normal Cornea: corneas normal Neck Neck: normal visual inspection and no lymphadenopathy Neck mass: No Thyroid: thyroid normal Carotids: normal carotid upstroke Lymphatic: no lymphadenopathy noted Resp Effort Inspection: normal respiratory effort, able to speak in complete sentences and no cough Auscultation: clear to auscultation bilaterally Cardio Palpation: normal PMI Rate: regular rate Rhythm: regular rhythm Heart Sounds: S1 normal and S2 normal GI Inspection: Yes normal to inspection Palpation: soft Percussion: normal to percussion Auscultation: normal bowel sounds General: No CVA tenderness Musc Cervical Spine: normal cervical lordosis and cervical ROM normal Thoracic/Lumbar Spine: thoracic and lumbar spine normal to inspection and thoraco-lumbar ROM normal Skin Lesions: no lesions Rashes: no rashes Neuro General: patient alert, patient oriented x3 and moves all extremities Cranial Nerves: CN's II-XII intact bilaterally Cognition: normal cognition Speech: speech normal Gait: normal gait Extrem General: normal to inspection, no edema and no pedal edema Psych Appearance: grossly normal Mental Status: mental status grossly normal Speech and Movement: speech and movement normal Mood: congruent mood Affect: normal affect Attitude: cooperative Thought Process: normal Thought Content: normal Insight: insight good Judgment: judgment good Assessment Plan Assessment Plan (1) Pre-Operative Examination: Code(s): Z01.818 - Encounter for other preprocedural examination (2) Type 2 diabetes mellitus without complication, without long-term current use of insulin: Status: Acute Onset Date: 04/14/17 Code(s): E11.9 - Type 2 diabetes mellitus without complications SNOMED Code(s): 116096443 Category: Medical (3) Seasonal allergies: Status: Acute Code(s): J30.2 - Other seasonal allergic rhinitis SNOMED Code(s): 880868421 Category: Medical (4) Essential hypertension: Status: Acute Onset Date: 09/03/16 Code(s): I10 - Essential (primary) hypertension SNOMED Code(s): 48382169 Category: Medical Plan: LOW RISK. CLEARED FOR SURGERY. A1C 5.3 BP 120/60 CONT ALLERGY MEDS/DECONGESTANT RTC 2 MONTHS Coding [place] [address] Est Pt Comprehensive Com Patient Type Established History Comprehensive Exam Comprehensive Medical Decision Making High Complexity Diagnoses Pre-Operative Examination Z01.818 Type 2 diabetes mellitus without complication, without long-term current use of insulin E11.9 Seasonal allergies J30.2 Essential hypertension I10 Additional Codes Intake - Is patient in pain?: Yes (1125F) Time Spent (min) 40 <Electronically signed by Jocelyn Humphries NP> 01/06/21 1159 Name Value Range Interpretation Code Description Data Natasha rce(s) Supporting Document(s) ID Date Data Source [id number] 01/06/2021 09:17:00 AM EDT [facility] Name Value Range Interpretation Code Description Data Natasha rce(s) Supporting Document(s) Leukocytes [#/volume] in Blood by Automated count 5.4 10*3/uL 4.45-10 .71 N [facility] Erythrocytes [#/volume] in Blood by Automated count 4.46 10*6/uL 4.20 -5.40 N [facility] Hemoglobin [Moles/volume] in Blood 13.6 g/dL 10.7-15.4 N [facility] Hematocrit [Volume Fraction] of Blood by Automated count 39.9 % 3 7-47 N [facility] Erythrocyte mean corpuscular volume [Ent itic volume] in Cord blood by Automated count 90 fL 80-96 N [facility] ital Erythrocyte mean corpuscular hemoglobin [Entitic mass] by Au tomated count 31 pg 27-31 N [facility] Erythrocyte mean corpuscular hemoglobin concentration [Mass/volume] in Cord blood 34 g/dL 33-37 N [facility] ital Erythrocyte distribution width [Entitic volume] by Automated count 12 % 11-15 N [facility] Platelets [#/volume] in Blood by Automated count 168 10*3/uL 130-472 N [facility] Platelet mean volume [Entitic volume] in Blood 8.3 fL 9.1-13. 1 Below low normal [facility] Neutrophils/100 leukocytes in Blood by Automated count 38.5 % 41-77 Below low normal [facility] Neutrophils [#/volume] in Blood by Automated count 2.1 U 1.7-7.6 N [facility] Lymphocytes/100 leukocytes in Blood by Automated count 50.4 % 14-46 Above high normal [facility] Lymphocytes [#/volume] in Blood by Automated count 2.7 U 0.6-4.6 N [facility] Monocytes/100 leukocytes in Blood by Automated count 6.5 % 4-12 N [facility] Monocytes [#/volume] in Blood by Automated count 0.4 U 0.2-1.2 N [facility] Eosinophils/100 leukocytes in Blood by Automated count 3.5 % 0-7 N [facility] Eosinophils [#/volume] in Blood by Automated count 0.2 U 0.0-0.5 N [facility] Basophils/100 leukocytes in Blood by Automated count 0.9 % 0.4-1 .3 N [facility] Basophils [#/volume] in Blood by Automated count 0.1 U 0.0-0.2 N [facility] NUCLEATED RED BLOOD CELL 0 % [facility] NUCLEATED RED BLOOD CELL# 0 U [facility] Immature granulocytes [Presence] in Blood by Automated count 0-2 N [facility] Immature granulocytes [#/volume] in Blood by Automated count 0.0 U 0-0.1 N [facility] Manual Differential panel - Blood NO [facility] ID Date Data Source [id number] 01/06/2021 09:42:00 AM EDT [facility] Name Value Range Interpretation Code Description Data Natasha rce(s) Supporting Document(s) Hemoglobin A1c [Mass/volume] in Blood 5.3 % 3.8-5.6 [facility] The following ranges may be u sed for interpretation of results: HGBA1C degree of glucose control: Greater than 8%: Action Suggested * Less than 7%: Goal of Diabetic Therapy Less than 5.6%: NormalFactors such as duration of diabetes, adherence to therapyand the age of the patient should also be considered inassessing the degree of blood glucose control.* High risk of developing intermodal dispatcher complications such asretinopathy, nephropathy, neuropathy, cardiopathy, etc. Some danger of hypoglycemic reaction in Type I diabetics.Some glucose intolerant individuals and "Sub Clinical"diabetics may demonstrate HGBA1C levels in this area. Glucose mean value [Moles/volume] in Blood Estimated f rom glycated hemoglobin 105 mg/dL [facility] l An A1C of 7% - the goal of diabetic ther apy - is equivalentto an EAG of 154 mg/dl. ID Date Data Source [id number] 01/06/2021 10:00:00 AM EDT [facility] Name Value Range Interpretation Code Description Data Natasha rce(s) Supporting Document(s) Urea nitrogen [Mass/volume] in Serum or Plasma 16 mg/dL 9-23 [facility] Sodium [Moles/volume] in Serum or Plasma 144 mmol/L 132-146 [facility] Potassium [Moles/volume] in Serum or Plasma 4.3 mmol/L 3.5-5.5 [facility] Chloride [Moles/volume] in Serum or Plasma 110 mmol/L 99-109 Above high normal [facility] Carbon dioxide, total [Moles/volume] in Serum or Plasma 29 mmol/L 20 -31 N [facility] Anion gap in Serum or Plasma 9 mmol/L 8-16 N [facility] Glucose [Mass/volume] in Serum or Plasma 88 mg/dL 74-106 N [facility] Creatinine 0.7 mg/dL 0.5-1.1 [facility] Glomerular filtration rate/1.73 sq M.pre dicted [Volume Rate/Area] in Serum or Plasma Greater Than 60 ABOVE 60 [facility] Alanine aminotransferase [Enzymatic acti vity/volume] in Serum or Plasma by With P-5'-P 41 U/L 10-49 [facility] ital Aspartate aminotransferase [Enzymatic ac tivity/volume] in Serum or Plasma by With P-5'-P 31 U/L 0-33 [facility] pital Alkaline phosphatase [Enzymatic activity/volume] in Serum or Plasma 66 U/L 45-129 [facility] Calcium [Mass/volume] in Serum or Plasma 8.6 mg/dL 8.5-10.1 [facility] Bilirubin.total [Mass/volume] in Serum or Plasma 0.5 mg/dL 0.3-1.2 [facility] Albumin [Mass/volume] in Serum or Plasma by Bromocresol purple (BCP) dye binding method 3.5 g/dL 3.2-4.8 [facility] ital Protein [Mass/volume] in Serum or Plasma 6.9 g/dL 5.7-8.2 [facility] ID Date Data Source [id number] 12/16/2020 09:57:00 AM EDT [facility] Patient Name: SONU LIANG : 1965 Sex: F Pt Unit #: [id number] Location:[facility] Provider: Visit Date/Time: 12/16/20 Primary Insurance: [employer] Secondary Insurance: Self Pay Intake Vital Signs 12/16/20 09:57 Current Height 5 ft 5 in Current Weight 206 lb 0.6 oz Weight Measurement Method Standing Scale BMI 34.2 BP 122/86 Blood Pressure Location Lt brachial Position Sitting Respiration 18 Pulse 85 Pulse Strength Normal Pulse Source Pulse Oximeter Pulse Oximetry (%) 97 Oxygen Delivery Method room air Intake Visit Reasons: Diabetes Nurse Note: PT here for DM no concerns today. Flu shot offered and wants Is patient in pain?: No Allergies cefaclor [From Ceclor] Allergy (Severe, Verified 10/11/20 20:10) Anaphylaxis Cephalosporins Allergy (Severe, Verified 10/11/20 20:10) Anaphylaxis No Known Food Allergies Allergy (Verified 10/11/20 20:10) Medications - Last Reconciled 12/16/20 by Jocelyn Humphries NP blood sugar diagnostic (FreeStyle Lite Strips) As directed-E11.9 blood-glucose meter (FreeStyle Scenic Lite) As directed E11.9 blood-glucose meter (FreeStyle Lite Meter) carvedilol 6.25 mg PO HS cholecalciferol (vitamin D3) (Vitamin D3) 1,000 units PO DAILY ciprofloxacin HCl (Cipro) 500 mg PO Q12HR fosinopril TAKE ONE TABLET BY MOUTH EVERY DAY lancets (FreeStyle Lancets) As directed-E11.9 metformin ER 500 mg PO QDAY multivitamin 1 ea PO DAILY naproxen 500 mg PO BIDPRN nitrofurantoin macrocrystal 100 mg PO BID 7 days rosuvastatin 5 mg PO QDAY semaglutide (Ozempic) 0.5 mg (0.4 mL) subcut QWEEK sertraline TAKE ONE TABLET BY MOUTH EVERY DAY Fall Risk History of falls: No Ambulatory Aid:: None Gait/Transferring:: Normal HIV Testing Offer - ages 13-64 Requirement for HIV testing offer been met?: Declines today. Pretest education received and acknowledged Coronavirus Screening Screening Are you currently positive or on isolation for COVID ?: No Do you have any NEW signs of one or more of the following?: no symptoms Do you have NEW signs of at least two of the following?: no symptoms HPI Additional HPI HPI Details: RECHECK DIABETES. DOING WELL. FSBS RANGING 80-90 WOULD LIKE FLU SHOT TODAY. PFSH Medical History Allergic rhinitis Atypical chest pain Benign essential hypertension Bunion Left Carcinoma of breast ( 08/2008) Carcinoma of breast (06/27/14) Congenital accessory skin tag Depressive disorder Depressive disorder (07/16/14) Fatigue Fatigue (06/27/14) Glaucoma Muscle spasms of head and/or neck Obesity Obesity (07/16/14) Otalgia Plantar fasciitis of right foot (08/18/15) Pure hypercholesterolemia recurrent sinusitis Right upper quadrant pain Seborrheic keratoses, inflamed Skin irritation Vertigo (08/25/17) Vitamin D deficiency Vitamin D deficiency (07/16/14) flu vac [id number] 36mos up(PF) Performing Provider: Jocelyn Humphries NP Administered by: Dora Turk on 12/16/20 10:13 Surgical History abdomino-vaginal vesical neck suspension adenoidectomy History of - surgery History of - surgery History of - surgery History of - surgery History of hysterectomy History of sinus surgery Status post tonsillectomy Family History Mother Diabetes Hypertension Father Heart disease Hypertension Aunt No problems noted. Social History Does the Patient have a Healthcare Proxy: No Does Patient have a DNR?: No Does Patient have a Living Will?: No Does the Patient have a MOLST?: No Advance Directives on File or in chart?: No Hx Recent Travel (where): No Smoking Status: Never smoker Review of Systems Const All systems reviewed are unremarkable except as noted in HPI and below Denies chills, Denies fatigue, Denies fever(s) and Denies headache(s) Eyes Denies blurry vision, Denies diplopia and Denies eye discharge ENT Denies dizziness, Denies headache(s), Denies nasal congestion, Denies nasal discharge and Denies sore throat Card Denies chest pain and Denies dyspnea Resp Denies cough and Denies dyspnea GI Denies constipation, Denies heartburn, Denies diarrhea, Denies nausea and Denies vomiting Genitourinary: Denies dysuria, urinary frequency or urinary urgency Musc Denies back pain, Denies myalgias and Denies arthralgias Skin/Breast Reports change in breast shape (D/T BREAST RECONSTRUCTION SURGERY) Neuro Denies dizziness, Denies headache(s) and Denies paresthesias Psych Denies anxiety and Denies depression Endo Denies fatigue Franco/Lymph Denies easy bleeding and Denies easy bruising Aller/Immun Denies seasonal rhinorrhea Exam Const General: cooperative, healthy appearing and well developed Nutritional Appearance: average body habitus Orientation: alert, oriented x3 and oriented to time HENCA Head: normal to inspection Ears: hearing grossly normal bilaterally General nose exam: external nose normal Face and sinus: normal facial exam Throat: posterior oropharynx normal Eyes Alignment and Position: alignment normal Periorbital: periorbital findings normal Eyelids: eyelids normal Conjunctivae: conjunctivae normal Sclera: sclerae normal Cornea: corneas normal Neck Neck: normal visual inspection Neck mass: No Thyroid: thyroid normal Carotids: normal carotid upstroke Resp Effort Inspection: normal respiratory effort, able to speak in complete sentences and no cough Auscultation: clear to auscultation bilaterally Cardio Palpation: normal PMI Rate: regular rate Rhythm: regular rhythm Heart Sounds: S1 normal and S2 normal GI Inspection: Yes normal to inspection Palpation: soft Percussion: normal to percussion Auscultation: normal bowel sounds General: No CVA tenderness Musc Cervical Spine: normal cervical lordosis and cervical ROM normal Thoracic/Lumbar Spine: thoracic and lumbar spine normal to inspection and thoraco-lumbar ROM normal Skin Lesions: no lesions Rashes: no rashes Neuro General: patient alert, patient oriented x3 and moves all extremities Cranial Nerves: CN's II-XII intact bilaterally Cognition: normal cognition Speech: speech normal Gait: normal gait Extrem General: normal to inspection, no edema and no pedal edema Psych Appearance: grossly normal Mental Status: mental status grossly normal Speech and Movement: speech and movement normal Mood: congruent mood Affect: normal affect Attitude: cooperative Thought Process: normal Thought Content: normal Insight: insight good Judgment: judgment good Diabetic Foot Inspection: Yes foot deformity Pulses: Left dorsalis pedis peripheral pulse: normal, Right dorsalis pedis peripheral pulse: normal,L posterior tibial pulse: normal and Right posterior tibial pulse foot exam: normal Monofilament exam: L 1st metatarsals: normal, Left 3rd metatarsals monofilament exam: normal, L 5th metatarsals: normal, L great toe: normal, L 3rd toe: normal, L 5th toe: normal, Left medial mid foot: normal, Left lateral mid- foot: normal, Left mid-heel: normal, Left mid-dorsum foot: normal, R 1st metatar sals: normal, R 3rd metatarsals: normal, R 5th metatarsals: normal, R great toe: normal, R 3rd toe: normal, R 5th toe: normal, Right medial mid foot: normal, Right lateral mid-foot: normal,Right mid-heel: normal and Right mid-dorsum foot: normal Monofilament foot exam results: Left foot: normal and Right foot: normal Immunizations flu vac [id number] 36mos up(PF) Performing Provider: Jocelyn Humphries NP Administered by: Dora Turk on 12/16/20 10:13 Dose Route Admin Location Lot Number Expiration Date NDC Manufactu rer 0.5 mL IM Left deltoid [id number] 09/24/21 61191-770-29 [employer] VIS Given Date VIS Provided VIS Publication Date 12/16/20 Single Vaccine 20 Eligibility Eligibility Date Funding Source Not [facility] Eligible 12/16/20 Private Assessment Plan Assessment Plan (1) Diabetes mellitus: Status: Acute Code(s): E11.9 - Type 2 diabetes mellitus without complications Category: Medical Qualifiers: Diabetes mellitus complication status: without complication Diabetes mellitus type: type 2 Plan: LABS PRIOR TO NEXT OV CONT CURRENT MEDS. FLU SHOT TODAY SCHEDULE PE Orders: Orders INJ - Influenza Vaccine Today Z23 - Encounter for immunization HGBA1C + EAG Today E13.9 - Other specified diabetes mellitus without complications Counseling Counseling on all vaccine components completed: Yes C[place] [address] Est Pt Comprehensive Com Patient Type Established History Detailed Exam Detailed Medical Decision Making Moderate Complexity Diagnoses Diabetes mellitus E11.9 Diabetes mellitus complication status: without complication Diabetes mellitus type: type 2 Additional Codes Intake - Is patient in pain?: No (1126F) Time Spent (min) 20 <Electronically signed by Jocelyn Humphries NP> 12/16/20 1046 Name Value Range Interpretation Code Description Data Natasha rce(s) Supporting Document(s) ID Date Data Source [id number] 10/11/2020 08:27:00 PM EDT [facility] ED Physician Documentation NAME: SONU LIANG DOB: 1965 AGE: 55 MR#: [id number] SERVICE DATE: 10/11/[address]: Markus Gracia MD PRIMARY CARE DR: Jocelyn Humphries ROOM#: HPI (Adult, General) General Chief Complaint: Urogenital Stated Complaint: BLADDER ISSUES Time Seen by Provider: 10/11/20 20:15 History of Present Illness Narrative: 8:10PM: C : Dysuria X 5 days. Patient is a 55-year-old female who states 10/06/2020 she developed dysuria, urinary urgency, urinary frequency. Patient states since onset of this PI she has been urinating about 20 times per day. Patient received no treatment for this PI. Pt denies associated vaginal discharge. Allergies/Home Meds Allergies Allergy/AdvReac Type Severity Reaction Status Date / Time cefaclor [From Ceclor] Allergy Severe Anaphylaxis Verified 10/11/20 20:10 Cephalosporins Allergy Severe Anaphylaxis Verified 10/11/20 20:10 No Known Food Allergies Allergy Verified 10/11/20 20:10 Home Medications Medication Instructions Recorded Confirmed Last Taken Type multivitamin 1 ea PO DAILY 05/30/14 10/11/20 10/11/20 History blood-glucose meter [Freestyle #1 kit 04/14/17 10/11/20 10/11/20 History Lite Meter] blood sugar diagnostic #1 box 09/24/19 10/11/20 10/11/20 Rx cholecalciferol (vitamin D3) 25 1,000 unit PO DAILY #90 tab 09/24/19 10/11/20 10/11/20 Rx mcg (1,000 unit) capsule lancets 28 gauge #100 ea 09/24/19 10/11/20 10/11/20 Rx rosuvastatin 5 mg tablet 5 mg PO QDAY #90 tab 09/24/19 10/11/20 10/11/20 Rx blood-glucose meter #1 each 09/26/19 10/11/20 10/11/20 Rx naproxen 500 mg tablet 500 mg PO BIDPRN #180 tabs 12/20/19 10/11/20 10/11/20 Rx carvedilol 6.25 mg tablet 6.25 mg PO HS #90 tab 04/02/20 10/11/20 10/11/20 Rx fosinopril 20 mg tablet See Rx Instructions .ROUTE 04/28/20 10/11/20 10/11/20 Rx .COMPLEX #90 tab sertraline 100 mg tablet See Rx Instructions .ROUTE 04/28/20 10/11/20 10/11/20 Rx .COMPLEX #90 tab metformin 500 mg tablet,extended 500 mg PO QDAY #90 tab 09/16/20 10/11/20 10/11/20 Rx release 24 hr semaglutide 0.5 mg SUBCUT QWEEK #6 ml 09/16/20 10/11/20 10/11/20 Rx nitrofurantoin macrocrystal 100 mg 100 mg PO BID 7 Days #14 cap 10/09/20 10/11/20 10/11/20 Rx capsule ciprofloxacin HCl [Cipro] 500 mg PO Q12HR #14 tab 10/11/20 U nknown Rx PMH (from Triage) Patient Medical History PMH Reviewed/Updated as Needed: Yes PMH/PSH from Triage: Medical History (Updated 09/16/20 @ 14:18 by Jocelyn Humphries NP) Allergic rhinitis (Medical) Atypical chest pain (Medical) Benign essential hypertension (Medical) Bunion Left (Medical) Carcinoma of breast (Medical 08/2008) Stage 1 right breast cancer . treated with lumpectomy and chemo. Carcinoma of breast (Medical 06/27/14) C50.919 right breast with chemo and lumpectomy Congenital accessory skin tag (Medical) Depressive disorder (Medical) Depressive disor lidya (Medical 07/16/14) F32.9 Fatigue (Medical) Fatigue (Medical 06/27/14) R53.83 Glaucoma (Medical) Muscle spasms of head and/or neck (Medical) Obesity (Medical) Obesity (Medical 07/16/14) E66.9 Otalgia (Medical) H92.09 Plantar fasciitis of right foot (Medical 08/18/15) M72.2 Pure hypercholesterolemia (Medical) recurrent sinusitis (Medical) Right upper quadrant pain (Medical) Seborrheic keratoses, inflamed (Medical) L82.0 Skin irritation (Medical) R23.8 Vertigo (Medical 08/25/17) R42 Vitamin D deficiency (Medical) Vitamin D deficiency (Medical 07/16/14) E55.9 Surgical History (Updated 09/19/18 @ 12:00 by [employer] [place]) abdomino- vaginal vesical neck suspension (Surgical) adenoidectomy (Surgical) History of - surgery (Surgical) History of - surgery (Surgical) left History of - surgery (Surgical) right breast inferior lateral quarter History of - surgery (Surgical) TVT History of hysterectomy (Surgical) History of sinus surgery (Surgical) bilateral Status post tonsillectomy (Surgical) Female History LMP:: Hysterectomy Hx Drug Resistant Infections Hx MRSA: (Methicillin-resistant Staphylococcus aureus): No Hx VRE (Vancomycin-resistant enterococci): No Hx C.Diff: No Hx CRKP: No Hx Other Resistant Infection?: No Isolation: Standard precautions Hx Recent Travel Out of the country within 10 days (where): No Hx Fever: No Hx Fever with a rash?: No Nurse screening for coronavirus: Recent Travel outside the No country (where) Social History Does patient have suicidal/homicidal thoughts or ideation?: No Are you in a relationship with/Does anyone hit you, yell/swear at you, steal from you?: No Substance Use Hx Alcohol Use: Yes (occasionally) Hx Substance Use: No Hx Substance Use Treatment: No Second Hand Smoke Exposure: No Smoking Status: Never smoker Vaccination History Hx/Date of Tetanus, Diphtheria Vaccination: Yes Hx/Date of Influenza Vaccination: Yes Hx/Date of Pneumococcal Vaccination: Yes Immunizations Up to Date: Yes [facility] Medical History Allergic rhinitis Atypical chest pain Benign essential hypertension Bunion Left Carcinoma of breast ( 08/2008) Carcinoma of breast (06/27/14) Congenital accessory skin tag Depress gisella disorder Depressive disorder (07/16/14) Fatigue Fatigue (06/27/14) Glaucoma Muscle spasms of head and/or neck Obesity Obesity (07/16/14) Otalgia Plantar fasciitis of right foot (08/18/15) Pure hypercholesterolemia recurrent sinusitis Right upper quadrant pain Seborrheic keratoses, inflamed Skin irritation Vertigo (08/25/17) Vitamin D deficiency Vitamin D deficiency (07/16/14) Surgical History abdomino-vaginal vesical neck suspension adenoidectomy History of - surgery History of - surgery History of - surgery History of - surgery History of hysterectomy History of sinus surgery Status post tonsillectomy Family History Mother Diabetes Hypertension Father Heart disease Hypertension Aunt No problems noted. Social History Does the Patient have a Healthcare Proxy: No Does Patient have a DNR?: No Does Patient have a Living Will?: No Does the Patient have a MOLST?: No Advance Directives on File or in chart?: No Hx Recent Travel (where): No Smoking Status: Never smoker ROS Review of Systems Constitutional: Reports malaise; Denies fever, chills, sweats or weakness Eyes: Denies vision change, eye discharge/drng, redness or eye pain ENT: Denies nasal pain, nasal discharge, nasal congestion, post nasal drip, epistaxis or throat pain Respiratory: Denies cough or SOB Cardiovascular: Reports hypertension; Denies chest pain, palpitations, orthopnea, paroxysmal noc dyspnea, edema, light headedness, dyspnea on exertion or syncope Gastrointestinal: Denies vomiting, abdominal pain, diarrhea or constipation Genitourinary-Female: Reports dysuria, frequency, nocturia and urgency; Denies incontinence, hematuria or retention Musculoskeletal: Denies neck pain, back pain or leg pain Neurologic: Denies weakness, numbness, headache, incoordination, change in speech, confusion, dizziness, vertigo, lightheadedness or loss of consciousness Physical Exam General General appearance: other (Obese white female NAD. No pallor, cyanosis, icterus, or diaphoresis. Alert. [place] x3.) Head Head exam: Present atraumatic and normocephalic Eye Eye exam: Absent scleral icterus or conjunctival injection ENT ENT exam: Present normal orophraynx Neck Neck exam: Present supple; Absent tenderness, meningismus, lymphadenopathy or thyromegaly Respiratory Respiratory exam: Present normal lung sounds bilaterally; Absent respiratory distress, wheezes, rales or rhonchi Cardiovascular Cardiovascular Exam: Present regular rate and no murmur; Absent rubs, gallop or JVD GI/Abdominal GI/Abdominal exam: Present Abd soft, bowel sounds present all quadrents and other (Obese.); Absent tenderness, organomegaly or mass Extremities Exam Extremities exam: Present other; Absent tenderness or pedal edema Back Exam Back exam: Absent CVA tenderness (R), CVA tenderness (L), paraspinal tenderness or vertebral tenderness Vital Signs Vital Signs: Vital Signs 10/11/20 20:04 Temperature 97.5 F L Pulse Rate 63 Respiratory Rate 16 Blood Pressure 179/81 O2 Sat by Pulse Oximetry 100 MDM (comprehensive) Lab Data Labs: Laboratory Results Last 24 hours 10/11/20 19:57: Urine Color Dark yellow, Urine Appearance Clear, Urine pH 7.5, Ur Specific [place] 1.023, Urine Protein Negative, Urine Ketones Negative, Urine Blood Negative, Urine Nitrate Negative, Urine Bilirubin Negative, Urine Urobilinogen 1 eu/dl, Ur Leukocyte Esterase Negative, Add Ur Microanalysis No, Urine Glucose Negative Medical Decision Making Free Text/Narative:: This is a 55-year-old female w C: Dysuria. Her symptoms are suggestive of UTI. She states she has had UTIs in the past and the symptoms are identical to those of UTI in the past. Urinalysis: Clear dark yellow; protein, ketones, blood, nitrate, leukocyte esterase, glucose: Negative. Urinalysis is not consistent with UTI. My working diagnosis: Dysuria. Rx: A urine culture is pending. Above notes, further options including antibio tic therapy versus no antibiotic therapy,non antibiotic options, risk, benefits, alternatives discussed with patient. Patient requests trial of Cipro which she has used in the past for UTI with good results. Cipro 500mg po. e- script Cipro 500 mg #14 . 1 po q12h. F/u PMD. Plan Visit Medications Administered ED medications:: Medications Discontinued Medications Generic Name Dose Route Start Last Admin Trade Name Yoel PRN Reason Stop Dose Admin Ciprofloxacin 500 mg 10/11/20 20:45 10/11/20 20:55 Ciprofloxacin Hcl 500 Mg Tablet PO 10/11/20 20:46 500 mg 1T ONE Administration Discharge Plan Admission/Discharge Dx Primary DC Diagnosis: Dysuria ED Provider: Nunu Gracia ED Status: Discharged Time Seen by Provider: 10/11/20 20:15 Triaged At: 10/11/20 18:15 Discharge Detail Disposition: Home, Self-Care Med Rec New Prescriptions: New ciprofloxacin HCl [Cipro] 500 mg tablet 500 mg PO Q12HR Qty: 14 RF: 0 No Action rosuvastatin 5 mg tablet 5 mg PO QDAY Qty: 90 RF: 1 (DME) lancets [FreeStyle Lancets] 28 gauge misc 1 ea miscellaneous DAILY Qty: 100 RF: 6 cholecalciferol (vitamin D3) [Vitamin D3] 25 mcg (1,000 unit) capsule 1,000 unit PO DAILY Qty: 90 RF: 1 (DME) FreeStyle Lite Strips Strip 1 ea miscellaneous DAILY Qty: 1 RF: 8 metformin 500 mg tablet extended release 24 hr 500 mg PO QDAY Qty: 90 RF: 3 Ozempic 0.25 mg or 0.5 mg(2 mg/1.5 mL) pen injector 0.5 mg subcut QWEEK Qty: 6 RF: 3 multivitamin Capsule 1 ea PO DAILY RF: 0 (DME) blood- glucose meter [FreeStyle Lite Meter] 1 EACH kit 1 ea miscellaneous DAILY Qty: 1 RF: 1 (DME) blood-glucose meter [FreeStyle Scenic Lite] Kit See Rx Instructions .ROUTE .MEDSUPPLY Qty: 1 RF: 0 naproxen 500 mg tablet 500 mg PO BIDPRN Qty: 180 RF: 3 carvedilol 6.25 mg tablet 6.25 mg PO HS Qty: 90 RF: 3 sertraline 100 mg tablet See Rx Instructions .ROUTE .COMPLEX Qty: 90 RF: 1 fosinopril 20 mg tablet See Rx Instructions .ROUTE .COMPLEX Qty: 90 RF: 3 nitrofurantoin macrocrystal 100 mg capsule 100 mg PO BID 7 Days Qty: 14 RF: 0 Follow Up Care/Instructions Diet/Activity/Wound Care..: Rest. Drink plenty of liquids, especially water. Take Cipro 500 mg every 12 hours until all the medicine is gone or until otherwise advised by follow-up MD. Follow-up with your doctor on 10/13/2020. If any new or worsening interim symptom occurs return to ED immediately. *Discharge Patient* Discharge Orders: Discharge Order (Routine); Ordered 10/11/20 Ordered By: Nunu Gracia Discharge Date/Time: 10/11/20 20:59 Interventions Interventions: ED Discharge Instructions Last Done: 10/11/20 20:59 Report Signers: <Elect ronically signed by Nunu Gracia MD> Nunu Gracia MD 10/12/20 0451 Nunu Gracia MD SIGNATURE DA Report Cosigners: D: BARPAS 10/11/202026 T: BARPAS 10/11/202026 CC: Jocelyn PIMENTEL Lidya Name Value Range Interpretation Code Description Data Natasha rce(s) Supporting Document(s) ID Date Data Source [id number] 10/11/2020 08:05:00 PM EDT [facility] Reason for ordering culture: Abnormal fi ndings UAMethod of Collection:: Voided Name Value Range Interpretation Code Description Data Natasha rce(s) Supporting Document(s) Color of Urine [facility] Appearance of Urine CLEAR [facility] pH of Urine by Test strip 7.5 5-8 [facility] Specific gravity of Urine by Refractometry 1.023 1.005-1.030 [facility] Leukocyte esterase [Presence] in Urine by Test strip NEGAT GISELLA [facility] Nitrite [Presence] in Urine by Test strip NEGATIVE [facility] Protein [Presence] in Urine by Test strip NEGATIVE [facility] Glucose [Mass/volume] in Urine by Automated test strip NEGATIVE NEG ATIVE [facility] Ketones [Presence] in Urine by Test strip NEGATIVE [facility] Urobilinogen [Presence] in Urine 0.2-1 EU/dl [facility] Bilirubin.total [Presence] in Urine by Automated test strip NEGATIVE [facility] Erythrocytes [#/volume] in Urine by Test strip NEGATIVE NEGATIVE [facility] URINE MICROSCOPIC? (CIF) NO [facility] ID Date Data Source [id number] 10/09/2020 04:10:00 PM EDT [facility] @10/09/20 1553: UA W/ MICRO added. RFLXG = UMIC CIF.Method of Collection:: Clean Catch @10/09/20 1610: Urine culture added. RFL XG = CULT.ADD.Less than 10,000 CFU/MLStaph spp. coag negProbable contaminants no senst done @10/09/20 1553: UA W/ MICRO added. RFLXG = UMIC CIF.Method of Collection:: Clean Catch Name Value Range Interpretation Code Description Data [facility] rce(s) Supporting Document(s) Color of Urine [facility] Dipstick results cannot beaccurately int erpreted due color.@only report color, clarity & microscopic Appearance of Urine CLEAR [facility] URINE MICROSCOPIC? (CIF) Microscopic Added [facility] ID Date Data Source [id number] 10/10/2020 01:17:00 PM EDT [facility] @10/09/20 1553: UA W/ MICRO added. RFLXG = UMIC CIF.Method of Collection:: Clean Catch @10/09/20 1610: Urine culture added. RFL XG = CULT.ADD.Less than 10,000 CFU/MLStaph spp. coag negProbable contaminants no senst done @10/09/20 1553: UA W/ MICRO added. RFLXG = UMIC CIF.Method of Collection:: Clean Catch Name Value Range Interpretation Code Description Data [facility] rce(s) Supporting Document(s) ID Date Data Source 10/09/2020 04:10:00 PM EDT [facility] @10/09/20 1553: UA W/ MICRO added. RFLXG = UMIC CIF.Method of Collection:: Clean Catch @10/09/20 1610: Urine culture added. RFL XG = CULT.ADD.Less than 10,000 CFU/MLStaph spp. coag negProbable contaminants no senst done @10/09/20 1553: UA W/ MICRO added. RFLXG = UMIC CIF.Method of Collection:: Clean Catch Name Value Range Interpretation Code Description Data [facility] rce(s) Supporting Document(s) Erythrocytes [#/volume] in Urine by Manual count OCCASIONAL 0-5 [facility] Leukocytes [#/volume] in Urine by Manual count 3-5 /hpf 0-5 [facility] Cells [Type] in Urine sediment by Light microscopy [facility] Crystals [type] in Urine sediment by Light microscopy [facility] Bacteria [Presence] in Urine sediment by Light microscopy NEGATIVE Above high normal [facility] ID Date Data Source [id number] 10/09/2020 04:32:00 PM EDT [facility] Name Value Range Interpretation Code Description Data Natasha rce(s) Supporting Document(s) Hemoglobin A1c [Mass/volume] in Blood 5.2 % 3.8-5.6 N [facility] The following ranges may be u sed for interpretation of results: HGBA1C degree of glucose control: Greater than 8%: Action Suggested * Less than 7%: Goal of Diabetic Therapy Less than 5.6%: NormalFactors such as duration of diabetes, adherence to therapyand the age of the patient should also be considered inassessing the degree of blood glucose control.* High risk of developing residential complications such asretinopathy, nephropathy, neuropathy, cardiopathy, etc. Some danger of hypoglycemic reaction in Type I diabetics.Some glucose intolerant individuals and "Sub Clinical"diabetics may demonstrate HGBA1C levels in this area. Glucose mean value [Moles/volume] in Blood Estimated f rom glycated hemoglobin 103 mg/dL [facility] An A1C of 7% - the goal of diabetic ther apy - is equivalentto an EAG of 154 mg/dl. ID Date Data Source [id number] 10/09/2020 05:06:00 PM [facility] Name Value Range Interpretation Code Description Data Natasha rce(s) Supporting Document(s) Urea nitrogen [Mass/volume] in Serum or Plasma 11 mg/dL 9-23 N [facility] Sodium [Moles/volume] in Serum or Plasma 141 mmol/L 132-146 [facility] Potassium [Moles/volume] in Serum or Plasma 3.9 mmol/L 3.5-5.5 [facility] Chloride [Moles/volume] in Serum or Plasma 108 mmol/L 99-109 [facility] Carbon dioxide, total [Moles/volume] in Serum or Plasma 27 mmol/L 20 -31 N [facility] Anion gap in Serum or Plasma 10 mmol/L 8-16 N [facility] Glucose [Mass/volume] in Serum or Plasma 90 mg/dL 74-106 N [facility] Creatinine 1.1 mg/dL 0.5-1.1 [facility] Glomerular filtration rate/1.73 sq M.pre dicted [Volume Rate/Area] in Serum or Plasma 51 ml/min ABOVE 60 [facility] ital Alanine aminotransferase [Enzymatic acti vity/volume] in Serum or Plasma by With P-5'-P 32 U/L 10-49 N [facility] ital Aspartate aminotransferase [Enzymatic ac tivity/volume] in Serum or Plasma by With P-5'-P 22 U/L 0-33 [facility] pital Alkaline phosphatase [Enzymatic activity/volume] in Serum or Plasma 55 U/L 45-129 N [facility] Calcium [Mass/volume] in Serum or Plasma 8.8 mg/dL 8.5-10.1 N [facility] Bilirubin.total [Mass/volume] in Serum or Plasma 0.7 mg/dL 0.3-1.2 N [facility] Albumin [Mass/volume] in Serum or Plasma by Bromocresol purple (BCP) dye binding method 4.1 g/dL 3.2-4.8 N [facility] ital Protein [Mass/volume] in Serum or Plasma 6.8 g/dL 5.7-8.2 N [facility] ID Date Data Source [id number] 09/19/2020 01:23:00 PM EDT [facility] [address] [place] [address] [phone] NAME SEX PT STATUS ACCOUNT NUMBER SONU LIANG REG REF [id number] ORDERING PHYSICIAN LOCATION MEDICAL RECORD NO. Jocelyn VINYL CUTTER Lidya MAMMO [id number] ATTENDING PHYSICIAN DATE OF DATE OF EXAM/TIME Jocelyn Humphries KOMAL 1965 09/19/20813 TYPE / EXAM 3D DIG MAMMO DIAG RT REASON FOR EXAM X VIEWS, RIGHT BREAST FIVE YEAR RISK: Patient had breast cancer LIFETIME RISK: Patient had breast cancer FAMILY HISTORY OF BREAST CARCINOMA: Self COMPARISON: Multiple prior mammograms, most recent from 09/16/2020. 2D digital mammogram in the CC and MLO projections (spot compression view) was performed. Targeted ultrasound of the area of concern was also performed. FINDINGS: Craniocaudad and oblique lateral views of the right breast were obtained. The breasts are composed of scattered areas of fibroglandular density. The previously described focal asymmetry of the retromammary lower outer right breast is again noted and persists on spot compression views. A targeted ultrasound of the right breast between the 6:00 and 9:00 axes was performed. Along the lateral 9:00 axis, a septated cystic area was noted, measuring 1.3 x 0.5 x 0.7 cm. Along the mid 9:00 axis, a complex cystic area was noted, measuring 0.6 x 0.3 x 0.5 cm. Finally, along the 7:00 axis, lateral to the patient's scar, a mass was noted with solid and cystic components, measuring 0.8 x 0.9 x 1.7 cm. IMPRESSION: Previously described focal asymmetry of the retromammary lower outer right breast persists on spot compression views. A mass of the right breast along the 7:00 axis was seen correlating to this area,measuring 0.8 x 0.9 x 1.7 cm. While these findings certainly could represent postoperative changes from the patient's recent breast lift, it is difficult to entirely exclude recurrent malignancy for this patient. Recommend ultrasound-guided biopsy of this area for further evaluation. OVERALL FINAL ASSESSMENT OF FINDINGS BI-RADS 4 - Suspicious Abnormality OVERALL FINAL ASSESSMENT OF THE BREAST COMPOSITION Breast Density Classification: B Description: The breast is composed of scattered areas of fibroglandular density. This mammogram was read with the assistance of M-[employer]low[employer], an FDA-approved computer-aided detection system for mammography. Reported By Nathanael Escalera MD on 09/19/20 1323 Signed By Nathanael Escalera MD on 09/19/20 1348 Date Time CC: Nathanael Escalera MD; Jocelyn PIMENTEL Lidya Techn: CUMME Trans Dt/Tm: Trans by: DT Prt Dt/Tm: : Total DLP = 0.00 mGy-cm : Total Radiation Dose = 0.0000 mSv Lifetime Dose: 0 mSv Name Value Range Interpretation Code Description Data Natasha rce(s) Supporting Document(s) ID Date Data Source [id number] 09/19/2020 01:23:00 PM EDT [facility] [address] [place] [id number] [phone] NAME SEX PT STATUS ACCOUNT NUMBER SONU LIANG REG REF [id number] ORDERING PHYSICIAN LOCATION MEDICAL RECORD NO. Jocelyn VINYL CUTTER Lidya MAMMO [id number] ATTENDING PHYSICIAN DATE OF DATE OF EXAM/TIME Jocelyn Humphries NP 1965 09/19/20838 TYPE / EXAM US Breast - Limited Unilat REASON FOR EXAM X VIEWS, RIGHT BREAST FIVE YEAR RISK: Patient had breast cancer LIFETIME RISK: Patient had breast cancer FAMILY HISTORY OF BREAST CARCINOMA: Self COMPARISON: Multiple prior mammograms, most recent from 09/16/2020. 2D digital mammogram in the CC and MLO projections (spot compression view) was performed. Targeted ultrasound of the area of concern was also performed. FINDINGS: Craniocaudad and oblique lateral views of the right breast were obtained. The breasts are composed of scattered areas of fibroglandular density. The previously described focal asymmetry of the retromammary lower outer right breast is again noted and persists on spot compression views. A targeted ultrasound of the right breast between the 6:00 and 9:00 axes was performed. Along the lateral 9:00 axis, a septated cystic area was noted, measuring 1.3 x 0.5 x 0.7 cm. Along the mid 9:00 axis, a complex cystic area was noted, measuring 0.6 x 0.3 x 0.5 cm. Finally, along the 7:00 axis, lateral to the patient's scar, a mass was noted with solid and cystic components, measuring 0.8 x 0.9 x 1.7 cm. IMPRESSION: Previously described focal asymmetry of the retromammary lower outer right breast persists on spot compression views. A mass of the right breast along the 7:00 axis was seen correlating to this area,measuring 0.8 x 0.9 x 1.7 cm. While these findings certainly could represent postoperative changes from the patient's recent breast lift, it is difficult to entirely exclude recurrent malignancy for this patient. Recommend ultrasound-guided biopsy of this area for further evaluation. OVERALL FINAL ASSESSMENT OF FINDINGS BI-RADS 4 - Suspicious Abnormality OVERALL FINAL ASSESSMENT OF THE BREAST COMPOSITION Breast Density Classification: B Description: The breast is composed of scattered areas of fibroglandular density. This mammogram was read with the assistance of [employer], an FDA-approved computer-aided detection system for mammography. Reported By Nathanael Escalera MD on 09/19/20 1323 Signed By Nathanael Escalera MD on 09/19/20 1348 Date Time CC: Nathanael Escalera MD; Jocelyn PIMNETEL Lidya Techn: BUSMI Trans Dt/Tm: Trans by: DT Prt Dt/Tm: : Total DLP = 0.00 mGy-cm : Total Radiation Dose = 0.0000 mSv Lifetime Dose: 0 mSv Name Value Range Interpretation Code Description Data Natasha rce(s) Supporting Document(s) ID Date Data Source [id number] 09/17/2020 06:53:00 PM EDT [place] [address] [place] [id number] [phone] NAME SEX PT STATUS ACCOUNT NUMBER SONU LIANG REG REF [id number] ORDERING PHYSICIAN LOCATION MEDICAL RECORD NO. Jocelyn LOREN Lidya MAMMO [id number] ATTENDING PHYSICIAN DATE OF DATE OF EXAM/TIME Jocelyn Humphries NP 1965 09/16/20 / 7 TYPE / EXAM 3D DIG MAMMO SCREEN BILAT REASON FOR EXAM Screening for breast cancer LAST CLINICAL BREAST EXAM: last year FIVE YEAR RISK: Patient had breast cancer LIFETIME RISK: Patient had breast cancer FAMILY HISTORY OF BREAST CARCINOMA: Self COMPARISON: Multiple prior screening mammograms, most recent from 09/07/2019. 2D bilateral digital mammogram in the CC and MLO projections was performed with supplemental 3D tomosynthesis of both breasts. FINDINGS: Craniocaudad and oblique lateral views of the breasts were obtained. The breasts are composed of scattered areas of fibroglandular density. As compared to the prior studies, there is a new focal asymmetry of the retromammary lower outer right breast. The left breast appears unremarkable. IMPRESSION: New focal asymmetry of the retromammary lower outer right breast. Further workup is recommended to include spot compression views and possible ultrasound. OVERALL FINAL ASSESSMENT OF FINDINGS BI-RADS 0 - Incomplete: Needs Additional Imaging Evaluation. OVERALL FINAL ASSESSMENT OF THE BREAST COMPOSITION Breast Density Classification: B Description: The breasts are composed of scattered areas of fibroglandular density. Note: for findings of BI-RADS 0, our office will contact the patient to arrange further mammographic and/or ultrasound imaging as needed. If MRI is recommended, this should be ordered and scheduled by the ordering provider's office. This mammogram was read with the assistance of M-Glowbiotics, an FDA-approved computer- aided detection system for mammography. Reported By Nathanael Escalera MD on 09/17/201852 Signed By Nathanael Escalera MD on 09/17/201856 Date Time CC: Nathanael Escalera MD; Jocelyn PIMENTEL Lidya Techn: BAKLE Trans Dt/Tm: Trans by: DT Prt Dt/Tm: : Total DLP = 0.00 mGy-cm : Total Radiat ion Dose = 0.0000 mSv Lifetime Dose: 0 mSv Name Value Range Interpretation Code Description Data Natasha rce(s) Supporting Document(s) ID Date Data Source [id number] 09/16/2020 01:37:00 PM EDT [facility] Patient Name: SONU LIANG : 1965 Sex: F Pt Unit #: [id number] Location:[facility] Provider: Visit Date/Time: 09/16/20 Primary Insurance: [employer] Secondary Insurance: Self Pay Intake Vital Signs 09/16/20 13:38 Current Height 5 ft 5.4 in Current Weight 215 lb Weight Measurement Method Standing Scale BMI 35.3 BP 120/60 Blood Pressure Location Lt brachial Position Sitting Respiration 18 Pulse 64 Pulse Strength Normal Pulse Source Pulse Oximeter Pulse Oximetry (%) 98 Oxygen Delivery Method room air Intake Visit Reasons: Pre-operative H P Nurse Note: PT IS HERE TODAY FOR PREOP PT IS HAVING BREAST SURGERY SEPTEMBER 25 Is patient in pain?: No Allergies cefaclor [From Ceclor] Allergy (Severe, Verified 01/17/20 10:17) Anaphylaxis Cephalosporins Allergy (Severe, Verified 01/17/20 10:17) Anaphylaxis No Known Food Allergies Allergy (Unverified 09/16/20 13:40) Medications - Last Reconciled 09/16/20 by Jocelyn Humphries NP blood sugar diagnostic (FreeStyle Lite Strips) As directed-E11.9 blood-glucose meter (FreeStyle Scenic Lite) As directed E11.9 blood-glucose meter (FreeStyle Lite Meter) carvedilol 6.25 mg PO HS cholecalciferol (vitamin D3) (Vitamin D3) 1,000 units PO DAILY fosinopril TAKE ONE TABLET BY MOUTH EVERY DAY lancets (FreeStyle Lancets) As directed-E11.9 metformin ER 500 mg PO BID multivitamin 1 ea PO DAILY naproxen 500 mg PO BIDPRN rosuvastatin 5 mg PO QDAY semaglutide (Ozempic) 0.5 mg (0.4 mL) subcut QWEEK sertraline TAKE ONE TABLET BY MOUTH EVERY DAY Fall Risk History of falls: No Ambulatory Aid:: None Gait/Transferring:: Normal Medications:: No High Risk Medications HIV Testing Offer - ages 13-64 Requirement for HIV testing offer been met?: Patient reports past refusal Coronavirus Screening Screening Are you currently positive or on isolation for COVID ?: No Do you have any NEW signs of one or more of the following?: no symptoms Do you have NEW signs of at least two of the following?: no symptoms HPI Pre-Operative H P HERE FOR MEDICAL CLEARANCE Surgery Information Proposed Surgical Procedure: BREAST RECONSTRUCTION Date of surgery: 09/25/20 Surgeon: DR. PARRY Anesthesia: general Covid Screening Pre-Op Covid testing ordered?: Yes Exercise tolerance Can climb one flight of stairs (12-13 steps) in less than 30 seconds without stopping and without symptoms: Yes Risk factors Active cardiac conditions: none Active risk factors: hx of diabetes mellitus and smoking (NEVER SMOKER) Sleep apnea risks: No (HAD CPAP BUT DOESN'T NEED IT SINCE WEIGHT LOSS) Pertinent Past History Medical History: Diabetes mellitus, Hypertension and Sleep Apnea Previous surgical complications: No Previous anesthesia intolerance: No Steroid use in last 6 months: No Allergies to meds or foods: Yes (CEPHALOSPORINS) Pertinent Family History Family hx adverse reaction to anesthesia: No Family history coagulopathy: No Menstrual History Menopausal?: Yes (HAL 2008) ?: No Nursing?: No Surgical Risk Surgical risk for this patient: Low PFS Medical History (Updated 09/16/20 @ 14:18 by Jocelyn Humphries NP) Allergic rhinitis Atypical chest pain Benign essential hypertension Bunion Left Carcinoma of breast ( 08/2008) Carcinoma of breast (06/27/14) Congenital accessory skin tag Depressive disorder Depressive disorder (07/16/14) Fatigue Fatigue (06/27/14) Glaucoma Muscle spasms of head and/or neck Obesity Obesity (07/16/14) Otalgia Plantar fasciitis of right foot (08/18/15) Pure hypercholesterolemia recurrent sinusitis Right upper quadrant pain Seborrheic keratoses, inflamed Skin irritation Vertigo (08/25/17) Vitamin D deficiency Vitamin D deficiency (07/16/14) Surgical History abdomino-vaginal vesical neck suspension adenoidectomy History of - surgery History of - surgery History of - surgery History of - surgery History of hysterectomy History of sinus surgery Status post tonsillectomy Family History Mother Diabetes Hypertension Father Heart disease Hypertension Aunt No problems noted. Social History Does the Patient have a Healthcare Proxy: Yes Does Patient have a DNR?: No Does Patient have a Living Will?: No Does the Patient have a MOLST?: No Advance Directi ves on File or in chart?: No Hx Recent Travel (where): No Smoking Status: Never smoker Review of Systems Const All systems reviewed are unremarkable except as noted in HPI and below Denies chills, Denies fatigue, Denies fever(s) and Denies headache(s) Eyes Denies blurry vision, Denies diplopia and Denies eye discharge ENT Denies dizziness, Denies headache(s), Denies nasal congestion, Denies nasal discharge and Denies sore throat Card Denies chest pain and Denies dyspnea Resp Denies cough and Denies dyspnea GI Denies constipation, Denies heartburn, Denies diarrhea, Denies nausea and Denies vomiting Genitourinary: Denies dysuria, urinary frequency or urinary urgency Musc Denies back pain, Denies myalgias and Denies arthralgias Skin/Breast Reports change in breast shape (D/T BREAST RECONSTRUCTION SURGERY) Neuro Denies dizziness, Denies headache(s) and Denies paresthesias Psych Denies anxiety and Denies depression Endo Denies fatigue Franco/Lymph Denies e asy bleeding and Denies easy bruising Aller/Immun Denies seasonal rhinorrhea Exam Const General: cooperative, healthy appearing and well developed Nutritional Appearance: average body habitus Orientation: alert, oriented x3 and oriented to time HENMT Head: normal to inspection Ears: hearing grossly normal bilaterally General nose exam: external nose normal Face and sinus: normal facial exam Throat: posterior oropharynx normal Eyes Alignment and Position: alignment normal Periorbital: periorbital findings normal Eyelids: eyelids normal Conjunctivae: conjunctivae normal Sclera: sclerae normal Cornea: corneas normal Neck Neck: normal visual inspection Neck mass: No Thyroid: thyroid normal Carotids: normal carotid upstroke Resp Effort Inspection: normal respiratory effort, able to speak in complete sentences and no cough Auscultation: clear to auscultation bilaterally Cardio Palpation: normal PMI Rate: regular rate Rhythm: regular rhythm Heart Sounds: S1 normal and S2 normal GI Inspection: Yes normal to inspection Palpation: soft Percussion: normal to percussion Auscultation: normal bowel sounds General: No CVA tenderness Musc Cervical Spine: normal cervical lordosis and cervical ROM normal Thoracic/Lumbar Spine: thoracic and lumbar spine normal to inspection and thoraco-lumbar ROM normal Skin Lesions: no lesions Rashes: no rashes Neuro General: patient alert, patient oriented x3 and moves all extremities Cranial Nerves: CN's II-XII intact bilaterally Cognition: normal cognition Speech: speech normal Gait: normal gait Extrem General: normal to inspection, no edema and no pedal edema Psych Appearance: grossly normal Mental Status: mental status grossly normal Speech and Movement: speech and movement normal Mood: congruent mood Affect: normal affect Attitude: cooperative Thought Process: normal Thought Content: normal Insight: insight good Judgment: judgment good Assessment Plan Assessment Plan (1) Pre-Operative Examination: Code(s): Z01.818 - Encounter for other preprocedural examination Plan: LOW RISK CLEARED FOR BREAST RECONSTRUCTION SURGERY (2) Type 2 diabetes mellitus without complication, without long-term current use of insulin: Status: Acute Onset Date: 04/14/17 Code(s): E11.9 - Type 2 diabetes mellitus without complications SNOMED Code(s): 717306569 Category: Medical Plan: RTC 3 MONTHS A1C IN 3 MONTHS CONT CURRENT MEDS Orders: Orders CMP Today Z09 - Encounter for follow-up examination after completed treatment for conditions other than malignant neoplasm HGBA1C + EAG Today E13.9 - Other specified diabetes mellitus without complications Medications: Changed From metformin ER 500 mg PO BID 240 tabs 1RF To metformin ER 500 mg PO QDAY 90 tabs 3RF Refilled semaglutide (Ozempic) 0.5 mg (0.4 mL) subcut QWEEK 6 mL 3RF E11.9 - Type 2 diabetes mellitus withoutcomplications Coding [place] [address] Est Pt Comprehensive Com Patient Type Established History Comprehensive Exam Comprehensive Medical Decision Making High Complexity Diagnoses Pre-Operative Examination Z01.818 Type 2 diabetes mellitus without complication, without long-term current use of insulin E11.9 Time Spent (min) 40 <Electronically signed by Jocelyn Humphries NP> 09/16/20 1445 Name Value Range Interpretation Code Description Data Natasha rce(s) Supporting Document(s) ID Date Data Source [id number] 08/21/2020 10:12:00 AM EDT [facility] Name Value Range Interpretation Code Description Data Natasha rce(s) Supporting Document(s) Leukocytes [#/volume] in Blood by Automated count 5.1 10*3/uL 4.45-10 .71 [facility] Erythrocytes [#/volume] in Blood by Automated count 4.23 10*6/uL 4.20 -5.40 [facility] Hemoglobin [Moles/volume] in Blood 12.8 g/dL 10.7-15.4 [facility] Hematocrit [Volume Fraction] of Blood by Automated count 37.7 % 3 7-47 N [facility] Erythrocyte mean corpuscular volume [Ent itic volume] in Cord blood by Automated count 89 fL 80-96 N [facility] ital Erythrocyte mean corpuscular hemoglobin [Entitic mass] by Au tomated count 30 pg 27-31 N [facility] Erythrocyte mean corpuscular hemoglobin concentration [Mass/volume] in Cord blood 34 g/dL 33-37 N [facility] ital Erythrocyte distribution width [Entitic volume] by Automated count 13 % 11-15 N [facility] Platelets [#/volume] in Blood by Automated count 200 10*3/uL 130-472 N [facility] Platelet mean volume [Entitic volume] in Blood 8.6 fL 9.1-13. 1 Below low normal [facility] Neutrophils/100 leukocytes in Blood by Automated count 44.2 % 41- 77 N [facility] Neutrophils [#/volume] in Blood by Automated count 2.3 U 1.7-7.6 N [facility] Lymphocytes/100 leukocytes in Blood by Automated count 46.1 % 14-46 Above high normal [facility] Lymphocytes [#/volume] in Blood by Automated count 2.3 U 0.6-4.6 N [facility] Monocytes/100 leukocytes in Blood by Automated count 5.9 % 4-12 N [facility] Monocytes [#/volume] in Blood by Automated count 0.3 U 0.2-1.2 N [facility] Eosinophils/100 leukocytes in Blood by Automated count 3.0 % 0-7 N [facility] Eosinophils [#/volume] in Blood by Automated count 0.2 U 0.0-0.5 N [facility] Basophils/100 leukocytes in Blood by Automated count 0.8 % 0.4-1 .3 N [facility] Basophils [#/volume] in Blood by Automated count 0.0 U 0.0-0.2 N [facility] NUCLEATED RED BLOOD CELL 0 % [facility] NUCLEATED RED BLOOD CELL# 0 U [facility] Immature granulocytes [Presence] in Blood by Automated count 0-2 N [facility] Immature granulocytes [#/volume] in Blood by Automated count 0.0 U 0-0.1 N [facility] Manual Differential panel - Blood NO [facility] ID Date Data Source [id number] 08/21/2020 10:56:00 AM EDT [facility] Name Value Range Interpretation Code Description Data Natasha rce(s) Supporting Document(s) Urea nitrogen [Mass/volume] in Serum or Plasma 13 mg/dL 9-23 N [facility] Sodium [Moles/volume] in Serum or Plasma 142 mmol/L 132-146 N [facility] Potassium [Moles/volume] in Serum or Plasma 4.5 mmol/L 3.5-5.5 N [facility] Chloride [Moles/volume] in Serum or Plasma 109 mmol/L 99-109 N [facility] Carbon dioxide, total [Moles/volume] in Serum or Plasma 27 mmol/L 20 -31 N [facility] Anion gap in Serum or Plasma 11 mmol/L 8-16 N [facility] Glucose [Mass/volume] in Serum or Plasma 90 mg/dL 74-106 N [facility] Creatinine 0.9 mg/dL 0.5-1.1 [facility] Glomerular filtration rate/1.73 sq M.pre dicted [Volume Rate/Area] in Serum or Plasma Greater Than 60 ABOVE 60 [facility] Alanine aminotransferase [Enzymatic acti vity/volume] in Serum or Plasma by With P-5'-P 42 U/L 10-49 N [facility] ital Aspartate aminotransferase [Enzymatic ac tivity/volume] in Serum or Plasma by With P-5'-P 27 U/L 0-33 N [facility] pital Alkaline phosphatase [Enzymatic activity/volume] in Serum or Plasma 57 U/L 45-129 N [facility] Calcium [Mass/volume] in Serum or Plasma 8.9 mg/dL 8.5-10.1 [facility] Bilirubin.total [Mass/volume] in Serum or Plasma 0.9 mg/dL 0.3-1.2 [facility] Albumin [Mass/volume] in Serum or Plasma by Bromocresol purple (BCP) dye binding method 4.2 g/dL 3.2-4.8 [facility] ital Protein [Mass/volume] in Serum or Plasma 7.0 g/dL 5.7-8.2 [facility] ID Date Data Source [id number] 07/25/2020 03:58:00 PM EDT [facility] Patient Name: SONU LIANG : 1965 Sex: F Pt Unit #: [id number] Location:[facility] Provider: Visit Date/Time: 07/25/20 Primary Insurance: [employer] Secondary Insurance: Self Pay Intake Vital Signs 07/25/20 15:59 Current Height 5 ft 4.5 in Current Weight 222 lb Weight Measurement Method Standing Scale BMI 37.5 BP 112/74 Blood Pressure Location Lt brachial Position Sitting Respiration 18 Pulse 72 Pulse Strength Normal Pulse Source Pulse Oximeter Temp 98.3 F Temp Source Oral Pulse Oximetry (%) 97 Oxygen Delivery Method room air Intake Visit Reasons: Ear Complaint Nurse Note: Pt presents today for bilat ear pain that she has had for approx 6 weeks. Pt states thatit started in the one ear only and has since gone to the other. She has been tx at urgent care in [place] with Bactrim that did not work and then she was given Amoxicillin which has not helped. She notes pain in her neck and jaw. Pt has also been tx with Tylenol and Calli. Risk Control Manager Required: No Accompanied by: Self / Same as Patient Is patient in pain?: Yes (ears) Pain scale (1-10): 4 Allergies cefaclor [From Ceclor] Rafa rgy (Severe, Verified 01/17/20 10:17) Anaphylaxis Cephalosporins Allergy (Severe, Verified 01/17/20 10:17) Anaphylaxis Is last menstrual period known: No Post menopausal: No Patient : No Vision Wearing glasses?: No Fall Risk History of falls: No Ambulatory Aid:: None Gait/Transferring:: Normal Medications:: No High Risk Medications HIV Testing Offer - ages 13-64 HIV testing Offer: No Requirement for HIV testing offer been met?: Patient reports past refusal Hep C Testing Offered: No Hep C Requirement met: Patient reports past refusal SBIRT Annual Questionnaire Are you currently in recovery for alcohol or substance use?: No How many times in the past year have you had 4 or more drinks in a day?: None How many times in the past year have you used a recreational drug or used a prescription medication for nonmedical reasons?: None Do you need a note to return Do you need a note to return to daycare/school/sports/work: No Coronavirus Screening Screening Are you currently positive or on isolation for COVID ?: No Do you have any NEW signs of one or more of the following?: no symptoms Do you have NEW signs of at least two of the following?: no symptoms HPI Additional HPI HPI Details: HPI see nurse's intake note above. She is taking her calli D. She has sinus pressure, andpressure around her eyes. She saw an ENT last fall in [place] Dr Reddy. He to ld her it wasn't time for ear tubes yet and to keep up with her allergy medication. [facility] Medical History (Updated 07/25/20 @ 16:23 by LOREN Mckenzie) Allergic rhinitis Atypical chest pain Benign essential hypertension Bunion Left Carcinoma of breast ( 08/2008) Congenital accessory skin tag Depressive disorder Fatigue Glaucoma Muscle spasms of head and/or neck Obesity Otalgia Pure hypercholesterolemia recurrent sinusitis Right upper quadrant pain Seborrheic keratoses, inflamed Skin irritation Vitamin D deficiency Surgical History abdomino-vaginal vesical neck suspension adenoidectomy History of - surgery History of - surgery History of - surgery History of - surgery History of hysterectomy History of sinus surgery Status post tonsillectomy Family History Mother Diabetes Hypertension Father Heart disease Hypertension Aunt No problems noted. Social History Does the Patient have a Healthcare Proxy: Yes Does Patient have a DNR?: No Does Patient have a Living Will?: No Does the Patient have a MOLST?: No Advance Directives on File or in chart?: No Hx Recent Travel (where): No Smoking Status: Never smoker Review of Systems ENT Reports as per HPI Exam Const General: cooperative, healthy appearing, well developed and well hydrated Nutritional Appearance: well nourished Orientation: alert and awake HENMT Head: normal to inspection Ears: hearing grossly normal bilaterally, TM's normal bilaterally and other (no fluid, canals look good) General nose exam: external nose normal and nares normal Face and sinus: face symmetric and sinus tenderness (mild) maxillary Throat: posterior oropharynx normal Eyes Alignment and Position: alignment normal Eyelids: eyelids normal Conjunctivae: conjunctivae normal Neck L ymphatic: no lymphadenopathy noted Resp Effort Inspection: normal respiratory effort Auscultation: clear to auscultation bilaterally Other: respiratory rate in normal range Cardio Rate: regular rate Rhythm: regular rhythm Musc Other: walks in with normal gait Psych Appearance: grossly normal Mood: congruent mood Affect: normal affect Attitude: cooperative Thought Process: normal Assessment Plan Assessment Plan (1) Ear Problem: Code(s): H93.90 - Unspecified disorder of ear, unspecified ear (2) Otalgia: Status: Acute Code(s): H92.09 - Otalgia, un specified ear SNOMED Code(s): 50089089 Category: Medical Plan - Nisha Hughes, LOREN: I advised patient I did not see any sign of infection. We discussed returning to ENT as he will not know that she is having continuing issues unless she sees him. Coding Level of Care Code 18807 Est Pt Limited Comp Exam Expanded Problem Focused Diagnoses Ear Problem H93.90 Otalgia H92.09 <Electronically signed by Nisha Hughes VINYL CUTTER> 07/25/20 1624 Name Value Range Interpretation Code Description Data Natasha rce(s) Supporting Document(s) ID Date Data Source [id number] 05/23/2020 02:29:00 PM EST [facility] ([facility] ) Name Value Range Interpretation Code Description Data Natasha rce(s) Supporting Document(s) Glucose [Mass/volume] in Serum or Plasma 88 [facility] ([facility]) Hemoglobin A1c/Hemoglobin.total in Blood 5.4 [facility] ([facility]) ID Date Data Source [id number] 04/01/2020 08:21:00 AM EST [facility] ([facility] ) Name Value Range Interpretation Code Description Data Natasha rce(s) Supporting Document(s) Glucose [Mass/volume] in Capillary blood by Glucometer 94 mg/dL 70-105 Normal (applies to non-numeric results) [facility] ID Date Data Source [id number] 03/27/2020 12:00:00 PM EST [facility] Name Value Range Interpretation Code Description Data Natasha rce(s) Supporting Document(s) SARS coronavirus 2 RNA [facility] This lab was ordered by [facility] and reported by [facility]. ID Date Data Source [id number] 03/19/2020 09:53:00 AM EST [facility] Patient Name: SONU LIANG : 1965 Sex: F Pt Unit #: [id number] Location:[facility] Provider: Visit Date/Time: 03/19/20 Primary Insurance: [employer] Secondary Insurance: Self Pay Intake Vital Signs 03/19/20 09:54 Current Height 5 ft 4.5 in Current Weight 239 lb Weight Measurement Method Standing Scale BMI 40.4 BP 120/70 Blood Pressure Location Lt brachial Position Sitting Respiration 18 Pulse 74 Pulse Strength Normal Pulse Source Pulse Oximeter Pulse Oximetry (%) 98 Oxygen Delivery Method room air Intake Visit Reasons: Pre-operative H P Nurse Note: pt is here today for pre op Is patient in pain?: No Allergies cefaclor [From Ceclor] Allergy (Severe, Verified 01/17/20 10:17) Anaphylaxis Cephalosporins Allergy (Severe, Verified 01/17/20 10:17) Anaphylaxis HIV Testing Offer - ages 13-64 Requirement for HIV testing offer been met?: Declines today. Pretest education received and acknowledged Hep C Testing Offered: Yes Hep C Requirement met: Patient reports past refusal Coronavirus Screening Screening Have you traveled outside of [facility] or [facility] in the last 14 days.: No Has patient experienced coronavirus symptoms: No PFSH Medical History Allergic rhinitis Atypical chest pain Benign essential hypertension Bunion Left Carcinoma of breast ( 08/2008) Congenital accessory skin tag Depressive disorder Fatigue Glaucoma Muscle spasms of head and/or neck Obesity Pure hypercholesterolemia recurrent sinusitis Right upper quadrant pain Seborrheic keratoses, inflamed Skin irritation Vitamin D deficiency Surgical History abdomino-vaginal vesical neck suspension adenoidectomy History of - surgery History of - surgery History of - surgery History of - surgery History of hysterectomy History of sinus surgery Status post tonsillectomy Family History Mother Diabetes Hypertension Father Heart disease Hypertension Aunt No problems noted. Social History Does the Patient have a Healthcare Proxy: Yes Does Patient have a DNR?: No Does Patient have a Living Will?: No Does the Patient have a MOLST?: No Advance Directives on File or in chart?: No Hx Recent Travel (where): No Smoking Status: Never smoker HPI Additional HPI HPI Details: HERE FOR PRE-OP CLEARANCE. HAVING BREAST RECONSTRUCTION DONE ON 04/01/2020. HX BREAST CANCER. FEELING WELL SAW INSURANCE ACCOUNT REPRESENTATIVE ON TUESDAY. WAS CLEARED BY CARDIOLOGY. NO REPORT ON FILE YET Review of Systems Const All systems reviewed are unremarkable except as noted in HPI and below Reports system reviewed and no additional complaints, except as documented, Denies chills, Denies fever(s) and Denies headache(s) Eyes Reports system reviewed and no additional complaints, except as documented ENT Reports system reviewed and no additional complaints, except as documented, Denies headache(s), Denies nasal congestion and Denies sore throat Card Reports system reviewed and no additional complaints, except as documented, Denies chest pain and Denies dyspnea Resp Reports system reviewed and no additional complaints, except as documented, Denies cough and Denies dyspnea GI Reports system reviewed and no additional complaints, except as documented, Denies constipation, Denies heartburn, Denies diarrhea, Denies nausea and Denies vomiting Genitourinary: Reports system reviewed and no additional complaints, except as documented; Denies dysuria, urinary frequency or urinary urgency Musc Reports system reviewed and no additional complaints, except as documented Details: OCCASIONAL NECK PAIN Skin/Breast Reports system reviewed and no additional complaints, except as documented Neuro Reports system reviewed and no additional complaints, except as documented, Denies head ache(s) and Denies paresthesias Psych Reports system reviewed and no additional complaints, except as documented, Denies anxiety and Denies depression Endo Reports system reviewed and no additional complaints, except as documented Franco/Lymph Reports system reviewed and no additional complaints, except as documented Aller/Immun Reports system reviewed and no additional complaints, except as documented Exam Const General: cooperative, healthy appearing, no acute distress, well developed and well groomed Nutritional Appearance: well nourished Orientation: alert, awake and oriented x3 [facility] Head: normal to inspection, normocephalic and atraumatic Ears: hearing grossly normal bilaterally and external ears normal General nose exam: external nose normal, nares normal and no nasal discharge Face and sinus: normal facial exam and sinuses nontender Mouth: oral mucosae normal and lip normal Throat: posterior oropharynx normal Eyes General: appearance normal, both eyes and all related structures Periorbital: periorbital findings normal Eyelids: eyelids normal Conjunctivae: conjunctivae normal Sclera: sclerae normal Pupils: PERRL EOM: EOM intact bilaterally Direct ophthalmoscopy: normal light reflex Neck Neck: normal visual inspection, full ROM and no lymphadenopathy Neck mass: No Thyroid: thyroid normal Carotids: normal carotid upstroke Resp Effort Inspection: normal respiratory effort Auscultation: clear to auscultation bilaterally Percussion: percussion normal Cardio Jugular venous pressure: no JVD Palpation: normal PMI Rate: regular rate Rhythm: regular rhythm Heart Sounds: S1 normal and S2 normal Pulses: normal peripheral pulses GI Inspection: Yes normal to inspection Palpation: soft Percussion: normal to percussion Auscultation: normal bowel sounds General: No CVA tenderness Musc Cervical Spine: normal cervical lordosis Thoracic/Lumbar Spine: thoracic and lumbar spine normal to inspection Skin Lesions: no lesions Rashes: no ra shes Hair: normal Nails: normal Neuro General: patient alert, patient awake, patient oriented x3, gait normal and moves all extremities Cranial Nerves: CN's II-XII intact bilaterally Cognition: normal cognition Speech: speech normal Gait: normal gait Motor: muscle tone normal throughout and strength 5/5 throughout Sensory Exam: no sensory deficits noted Extrem General: normal to inspection, full ROM and capillary refill normal Psych Appearance: grossly normal and well kempt Mental Status: mental status grossly normal Speech and Movement: speech and movement normal Affect: normal affect Attitude: cooperative Thought Process: normal Thought Content: normal Insight: insight good Judgment: judgment good Assessment Plan Assessment Plan (1) Pre-Operative Examination: Code(s): Z01.818 - Encounter for other preprocedural examination Plan - Jocelyn Humphries NP: MEDICALLY CLEARED FOR SURGERY CARDIAC CLEARANCE DONE BY [facility] AWAITING REPORT FROM THEM. (2) Breast reconstruction deformity: Status: Acute Code(s): N65.0 - Deformity of reconstructed breast SNOMED Code(s): 068657336119845 Category: Medical Coding [place] [address] Est Pt Extended Comp Patient Type Established Exam Detailed Medical Decision Making Moderate Complexity Diagnoses Pre-Operative Examination Z01.818 Breast reconstruction deformity N65.0 <Electronically signed by Jocelyn Humphries NP> 03/19/20 1020 Name Value Range Interpretation Code Description Data Natasha rce(s) Supporting Document(s) ID Date Data Source [id number] 03/13/2020 01:09:00 PM EST [facility] ([facility]) Name Value Range Interpretation Code Description Data Natasha rce(s) Supporting Document(s) .Scanned Labs Laboratory test result [facility] ([facility]) ID Date Data Source [id number] 03/13/2020 07:54:00 AM EST [facility] Name Value Range Interpretation Code Description Data Natasha rce(s) Supporting Document(s) Leukocytes [#/volume] in Blood by Automated count 6.0 10*3/uL 4.45-10 .71 N [facility] Erythrocytes [#/volume] in Blood by Automated count 4.30 10*6/uL 4.20 -5.40 N [facility] Hemoglobin [Moles/volume] in Blood 13.3 g/dL 10.7-15.4 N [facility] Hematocrit [Volume Fraction] of Blood by Automated count 37.9 % 3 7-47 N [facility] Erythrocyte mean corpuscular volume [Ent itic volume] in Cord blood by Automated count 88.1 fL 80-96 N [facility] Erythrocyte mean corpuscular hemoglobin [Entitic mass] by Automated count 30.9 pg 27-[address] [facility] l Erythrocyte mean corpuscular hemoglobin concentration [Mass/volume] in Cord blood 35.1 g/dL 33-37 N [facility] Erythrocyte distribution width [Entitic volume] by Automated count 13 % 11-15 N [facility] Platelets [#/volume] in Blood by Automated count 166 10*3/uL 130-472 N [facility] Platelet mean volume [Entitic volume] in Blood 8.4 fL 9.1-13. 1 Below low normal [facility] Neutrophils/100 leukocytes in Blood by Automated count 43.2 % 41- 77 N [facility] Neutrophils [#/volume] in Blood by Automated count 2.6 U 1.7-7.6 N [facility] Lymphocytes/100 leukocytes in Blood by Automated count 48.2 % 14-46 Above high normal [facility] Lymphocytes [#/volume] in Blood by Automated count 2.9 U 0.6-4.6 N [facility] Monocytes/100 leukocytes in Blood by Automated count 4.5 % 4-12 N [facility] Monocytes [#/volume] in Blood by Automated count 0.3 U 0.2-1.2 N [facility] Eosinophils/100 leukocytes in Blood by Automated count 3.2 % 0-7 N [facility] Eosinophils [#/volume] in Blood by Automated count 0.2 U 0.0-0.5 N [facility] Basophils/100 leukocytes in Blood by Automated count 0.7 % 0.4-1 .3 N [facility] Basophils [#/volume] in Blood by Automated count 0.0 U 0.0-0.2 N [facility] NUCLEATED RED BLOOD CELL 0 % [facility]UCLEATED RED BLOOD CELL# 0 [facility] Immature granulocytes [Presence] in Blood by Automated count 0-2 N [facility] Immature granulocytes [#/volume] in Blood by Automated count 0.0 U 0-0.1 N [facility] Manual Differential panel - Blood NO [facility] ID Date Data Source [id number] 03/13/2020 08:46:00 AM [facility] Name Value Range Interpretation Code Description Data Natasha rce(s) Supporting Document(s) Urea nitrogen [Mass/volume] in Serum or Plasma 14 mg/dL 9-23 N [facility] Sodium [Moles/volume] in Serum or Plasma 143 mmol/L 132-146 [facility] Potassium [Moles/volume] in Serum or Plasma 4.2 mmol/L 3.5-5.5 [facility] Chloride [Moles/volume] in Serum or Plasma 112 mmol/L 99-109 Above high normal [facility] Carbon dioxide, total [Moles/volume] in Serum or Plasma 25 mmol/L 20 -31 N [facility] Anion gap in Serum or Plasma 10 mmol/L 8-16 [facility] Glucose [Mass/volume] in Serum or Plasma 88 mg/dL 74-106 N [facility] Creatinine 0.7 mg/dL 0.5-1.1 [facility] Glomerular filtration rate/1.73 sq M.pre dicted [Volume Rate/Area] in Serum or Plasma Greater Than 60 ABOVE 60 [facility] Calcium [Mass/volume] in Serum or Plasma 8.6 mg/dL 8.5-10.1 N [facility] ID Date Data Source [id number] 02/06/2020 11:23:00 AM [facility] Patient Name: SONU LIANG : 1965 Sex: F Pt Unit #: [id number] Location:[facility] Provider: Visit Date/Time: 02/06/20 Primary Insurance: [employer] Secondary Insurance: Self Pay Intake Nurse Note Intake Visit Reasons: Flu shot Nurse Note: 54 year old female in for flu shot, administered in left deltoid. Tolerated well. Consent signed and VIS sheet given to patient Accompanied by: Self / Same as Patient Immunizations Afluria Qd (3yr up)(PF) Performing Provider: Jocelyn Humphries NP Administered by: Raya Garg on 02/06/20 11:23 Dose Route Admin Location Lot Number Expiration Date NDC Manufactu rer 0.5 mL IM Left deltoid [id number] 09/24/20 09594-521-89 [employer] VIS Given Date VIS Provided VIS Publication Date 02/06/20 Single Vaccine 18 Eligibility Eligibility Date Funding Source Not [facility] Eligible 02/06/20 Private Assessment Plan Orders Other Orders: Orders: INJ - Influenza Vaccine Today Z23 <Electronically signed by Jocelyn Humphries NP> 02/06/20 1135 Name Value Range Interpretation Code Description Data Natasha rce(s) Supporting Document(s) ID Date Data Source [id number] 02/02/2020 10:19:00 AM [facility] Name Value Range Interpretation Code Description Data Natasha rce(s) Supporting Document(s) Urine Random Creatinine 193.0 mg/dL [facility] THERE IS NO ESTABLISHED RANGE FOR RANDOM URINE CREATININE Urine Microalbumin 51.6 mg/L 0.0-29.9 Above high normal [facility] Ur Malb/Cre Ratio (ACR) 26.7 ug/mg 0.0-30.0 [facility] ID Date Data Source [id number] 02/02/2020 09:49:00 AM [facility] Name Value Range Interpretation Code Description Data Natasha rce(s) Supporting Document(s) Leukocytes [#/volume] in Blood by Automated count 5.8 10*3/uL 4.45-10 .71 [facility] Erythrocytes [#/volume] in Blood by Automated count 4.69 10*6/uL 4.20 -5.40 [facility] Hemoglobin [Moles/volume] in Blood 14.6 g/dL 10.7-15.4 [facility] Hematocrit [Volume Fraction] of Blood by Automated count 41.7 % 3 7-47 N [facility] Erythrocyte mean corpuscular volume [Ent itic volume] in Cord blood by Automated count 88.9 fL 80-96 N [facility] ital Erythrocyte mean corpuscular hemoglobin [Entitic mass] by Automated count 31.1 pg 27-31 Above high normal [facility] spital Erythrocyte mean corpuscular hemoglobin concentration [Mass/volume] in Cord blood 35.0 g/dL 33-37 N [facility] ital Erythrocyte distribution width [Entitic volume] by Automated count 13 % 11-15 N [facility] Platelets [#/volume] in Blood by Automated count 198 10*3/uL 130-472 N [facility] Platelet mean volume [Entitic volume] in Blood 8.9 fL 9.1-13. 1 Below low normal [facility] Neutrophils/100 leukocytes in Blood by Automated count 45.9 % 41- 77 N [facility] Neutrophils [#/volume] in Blood by Automated count 2.7 U 1.7-7.6 N [facility] Lymphocytes/100 leukocytes in Blood by Automated count 44.4 % 14- 46 N [facility] Lymphocytes [#/volume] in Blood by Automated count 2.6 U 0.6-4.6 N [facility] Monocytes/100 leukocytes in Blood by Automated count 5.7 % 4-12 N [facility] Monocytes [#/volume] in Blood by Automated count 0.3 U 0.2-1.2 N [facility] Eosinophils/100 leukocytes in Blood by Automated count 2.8 % 0-7 N [facility] Eosinophils [#/volume] in Blood by Automated count 0.2 U 0.0-0.5 N [facility] Basophils/100 leukocytes in Blood by Automated count 1.0 % 0.4-1 .3 N [facility] Basophils [#/volume] in Blood by Automated count 0.1 U 0.0-0.2 N [facility] NUCLEATED RED BLOOD CELL 0 % [facility] NUCLEATED RED BLOOD CELL# 0 U [facility] Immature granulocytes [Presence] in Blood by Automated count 0-2 N [facility] Immature granulocytes [#/volume] in Blood by Automated count 0.0 U 0-0.1 N [facility] Manual Differential panel - Blood NO [facility] ID Date Data Source [id number] 02/02/2020 10:10:00 AM EST [facility] Name Value Range Interpretation Code Description Data Natasha rce(s) Supporting Document(s) Hemoglobin A1c % 7.5 % 4.0-6.0 Above high normal [facility] The following ranges may be u sed for interpretation of results: HGBA1C degree of glucose control: Greater than 8%: Action Suggested * Less than 7%: Goal of Diabetic Therapy Less than 6%: NormalFactors such as duration of diabetes, adherence to therapyand the age of the patient should also be considered inassessing the degree of blood glucose control.* High risk of developing residential complications such asretinopathy, nephropathy, neuropathy, cardiopathy, etc. Some danger of hypoglycemic reaction in Type I diabetics.Some glucose intolerant individuals and "Sub Clinical"diabetics may demonstrate HGBA1C levels in this area. Glucose mean value [Moles/volume] in Blood Estimated f rom glycated hemoglobin 169 mg/dL [facility] An A1C of 7% - the goal of diabetic ther apy - is equivalentto an EAG of 154 mg/dl. ID Date Data Source [id number] 02/02/2020 10:27:00 AM [facility] Name Value Range Interpretation Code Description Data Natasha rce(s) Supporting Document(s) Urea nitrogen [Mass/volume] in Serum or Plasma 19 mg/dL 9-23 N [facility] Sodium [Moles/volume] in Serum or Plasma 139 mmol/L 132-146 N [facility] Potassium [Moles/volume] in Serum or Plasma 4.3 mmol/L 3.5-5.5 [facility] Chloride [Moles/volume] in Serum or Plasma 107 mmol/L 99-109 [facility] Carbon dioxide, total [Moles/volume] in Serum or Plasma 25 mmol/L 20 -31 N [facility] Anion gap in Serum or Plasma 11 mmol/L 8-16 N [facility] Glucose [Mass/volume] in Serum or Plasma 155 mg/dL 74-106 Above high normal [facility] Creatinine 0.8 mg/dL 0.5-1.1 [facility] Glomerular filtration rate/1.73 sq M.pre dicted [Volume Rate/Area] in Serum or Plasma Greater Than 60 ABOVE 60 [facility] Alanine aminotransferase [Enzymatic acti vity/volume] in Serum or Plasma by With P-5'-P 40 U/L 10-49 [facility] ital Aspartate aminotransferase [Enzymatic ac tivity/volume] in Serum or Plasma by With P-5'-P 28 U/L 0-33 N [facility] pital Alkaline phosphatase [Enzymatic activity/volume] in Serum or Plasma 60 U/L 45-129 N [facility] Calcium [Mass/volume] in Serum or Plasma 9.1 mg/dL 8.5-10.1 N [facility] Bilirubin.total [Mass/volume] in Serum or Plasma 1.0 mg/dL 0.3-1.2 N [facility] Albumin [Mass/volume] in Serum or Plasma by Bromocresol purple (BCP) dye binding method 4.1 g/dL 3.2-4.8 N [facility] ital Protein [Mass/volume] in Serum or Plasma 7.1 g/dL 5.7-8.2 N [facility] ID Date Data Source [id number] 02/02/2020 10:27:00 AM EST [facility] Name Value Range Interpretation Code Description Data Natasha rce(s) Supporting Document(s) Triglycerides 126 mg/dL 0-150 N [facility] Cholesterol 132 mg/dL 120-200 N [facility] HDL Cholesterol 50 mg/dL [facility] HDL Less than 40 mg/dL: Major risk for CHDHDL Greater than 59 mg/dL: Low risk for CHD LDL Cholesterol, Calc 57 mg/dL 0-100 N [facility] ID Date Data Source [id number] 01/17/2020 12:54:00 PM EDT [facility] @01/17/20 1239: UA W/ MICRO added. RFLXG = UMIC.Method of Collection:: Clean Catch @01/19/20 0713: Urine ID Charge added. R FLXG = CHGURID. @01/17/20 1239: UA W/ MICRO added. RFLXG = UMIC.Method of Collection:: Clean Catch Name Value Range Interpretation Code Description Data Natasha rce(s) Supporting Document(s) Color of Urine [facility] Dipstick results cannot beaccurately int erpreted due color.@only report color, clarity & microscopic Appearance of Urine CLEAR Abnormal (applies to non-nu meric results) [facility] URINE MICROSCOPIC ADDED Microscopic Added [facility] ID Date Data Source [id number] 01/17/2020 09:41:00 AM EDT [facility] Patient Name: SONU LIANG : 1965 Sex: F Pt Unit #: [id number] Location:[facility] Provider: Visit Date/Time: 01/17/20 Primary Insurance: [employer] [employer] Secondary Insurance: Self Pay Intake Vital Signs 01/17/20 09:42 Current Height 5 ft 4.5 in Weight Measurement Method Standing Scale BP 138/82 Blood Pressure Location Lt brachial Position Sitting Respiration 18 Pulse 59 L Pulse Strength Normal Pulse Source Pulse Oximeter Pulse Oximetry (%) 96 Oxygen Delivery Method room air Intake Visit Reasons: Urinary tract infection Nurse Note: 54 year old here today with c/o sudden onset of a UTI yesterday. She went to [employer] and bought [employer] max. She stated she noticed small blood clots in the toiel when she voided aftertaking it. Denies any fever or chills. Is patient in pain?: No Allergies cefaclor [From Ceclor] Allergy (Severe, Verified 01/17/20 10:17) Anaphylaxis Cephalosporins Allergy (Severe, Verified 01/17/20 10:17) Anaphylaxis Medications blood sugar diagnostic (FreeStyle Lite Strips) As directed-E11.9 blood-glucose meter (FreeStyle Scenic Lite) As directed E11.9 blood-glucose meter (FreeStyle Lite Meter) DAILY carvedilol 6.25 mg PO HS cholecalciferol (vitamin D3) (Vitamin D3) 1,000 units PO DAILY ciprofloxacin HCl 500 mg PO BID fosinopril 20 mg PO DAILY lancets (FreeStyle Lancets) As directed-E11.9 metformin ER 500 mg PO BID multivitamin 1 ea PO DAILY naproxen 500 mg PO BIDPRN rosuvastatin 5 mg PO QDAY sertraline 100 mg PO DAILY Is last menstrual period known: No Post menopausal: Yes Patient : No Vision Wearing glasses?: No Fall Risk History of falls: No Ambulatory Aid:: None Gait/Transferring:: Normal HIV Testing Offer - ages 13-64 Requirement for HIV testing offer been met?: Declines today. Pretest education received and acknowledged Hep C Requirement met: Refuses today SBIRT Annual Questionnaire Are you currently in recovery for alcohol or substance use?: No How many times in the past year have you had 4 or more drinks in a day?: None How many times in the past year have you used a recreational drug or used a prescription medication for nonmedical reasons?: None Do you need a note to return Do you need a note to return to daycare/school/sports/work: No Coronavirus Screening Screening Have you traveled outside of [facility] or [facility] in the last 14 days.: No Has patient experienced coronavirus symptoms: No PFSH Medical History Allergic rhinitis Atypical chest pain Benign essential hypertension Bunion Left Carcinoma of breast ( 08/2008) Congenital accessory skin tag Depressive disorder Fatigue Glaucoma Muscle spasms of head and/or neck Obesity Pure hypercholesterolemia recurrent sinusitis Right upper quadrant pain Seborrheic keratoses, inflamed Skin irritation Vitamin D deficiency Surgical History abdomino-vaginal vesical neck suspension adenoidectomy History of - surgery History of - surgery History of - surgery History of - surgery History of hysterectomy History of sinus surgery Status post tonsillectomy Family History Mother Diabetes Hypertension Father Heart disease Hypertension Aunt No problems noted. Social History Does the Patient have a Healthcare Proxy: Yes Does Patient have a DNR?: No Does Patient have a Living Will?: No Does the Patient have a MOLST?: No Advance Directives on File or in chart?: No Hx Recent Travel (where): No Smoking Status: Never smoker HPI Additional HPI HPI Details: 54 year old in office for UTI symptoms. Patient is having burning and pressure and urgency when going to bathroom. Started yesterday. Onset: 01/16/20 UTI Details: 54 year old in office for UTI How long have you had symptoms: <2 days Current symptoms: Reports dysuria, urinary frequency, urinary urgency and nausea; Denies Urinary incontinence, fever(s), back pain, chills or vomiting History of UTIs: No Review of Systems Const Denies chills and Denies fever(s) Eyes Denies blurry vision, Denies change in vision, Denies dry eyes, Denies irritation, Denies itchy eyesand Denies loss of vision ENT Denies abnormal hearing, Denies lip swelling, Denies nasal congestion, Denies nasal discharge, Denies sinus pain, Denies sore throat and Denies throat swelling Card Denies chest pain, Denies pedal edema, Denies lightheadedness, Denies palpitations and Denies dyspnea Resp Denies dyspnea GI Reports nausea and Denies vomiting Genitourinary: Reports dysuria and urinary urgency Musc Denies back pain Skin/Breast Denies breast pain, Denies change in pigmentation, Denies lesions, Denies nail changes, Denies rash and Denies unusual bruising Neuro Denies abnormal hearing and Denies loss of vision Psych Denies abnormal sleep pattern, Denies anxiety, Denies change in appetite, Denies depression and Denies irritability Endo Denies palpitations Franco/Lymph Denies easy bleeding, Denies easy bruising and Denies lymphadenopathy Aller/Immun Denies urticaria, Denies itchy eyes, Denies lip swelling, Denies seasonal rhinorrhea and Denies throat swelling Exam Const General: cooperative, healthy appearing, no acute distress, well developed and well groomed Nutritional Appearance: well nourished Orientation: alert, awake and oriented x3 HENMT Head: normal to inspection, normocephalic, atraumatic and no scalp tenderness Ears: hearing grossly normal bilaterally, external ears normal, TM's normal bilaterally, EAC's normal and no periauricular adenopathy General nose exam: external nose normal, nares normal, no nasal polyps, septum normal and no nasal discharge Face and sinus: normal facial exam and sinuses nontender Mouth: oral mucosae normal, lip normal, tongue normal, oropharynx normal and moist mucous membranes Throat: posterior oropharynx normal Eyes General: appearance normal, both eyes and all related structures Periorbital: periorbital findings normal Eyelids: eyelids normal Conjunctivae: conjunctivae normal Sclera: sclerae normal Pupils: PERRL EOM: EOM intact bilaterally Direct ophthalmoscopy: normal light reflex Neck Neck: normal visual inspection, full ROM, no lymphadenopathy, supple and no JVD present Neck mass: No Thyroid: thyroid normal Carotids: normal carotid upstroke Chest Chest: normal inspection of the chest Breast/Axilla Inspection: normal inspection of the breasts and normal inspection of the axillae Breast/Axilla Palpation: normal palpation of the breasts and no axillary lymphadenopathy Resp Effort Inspection: normal respiratory effort Auscultation: clear to auscultation bilaterally Percussion: percussion normal Cardio Jugular venous pressure: no JVD Palpation: normal PMI Rate: regular rate Rhythm: regular rhythm Heart Sounds: S1 normal and S2 normal Pulses: normal peripheral pulses GI Inspection: Yes normal to inspection Palpation: soft, no hepatosplenomegaly, no aortic enlargement and nontender Percussion: normal to percussion Auscultation: normal bowel sounds General: bimanual renal exam normal bilaterally Pelvic Support: no cystocele, no rectocele and no enterocele Musc Cervical Spine: normal cervical lordosis and cervical ROM normal Thoracic/Lumbar Spine: thoracic and lumbar spine normal to inspection, thoraco-lumbar ROM normal andstraight leg raise negative bilaterally Pelvis: no pain with anterior-posterior compression and no pain with lateral compression Skin Lesions: no lesions Rashes: no rashes Hair: normal Nails: normal Neuro General: patient alert, patient awake, patient oriented x3, gait normal, moves all extremities and normal light touch, pain and propioception Cranial Nerves: CN's II-XII intact bilaterally Cognition: normal cognition Speech: speech normal Gait: normal gait Motor: muscle tone normal throughout and strength 5/5 throughout Sensory Exam: no sensory deficits noted Extrem General: normal to inspection, full ROM, capillary refill normal, no clubbing, cyanosis or edema andno muscle atrophy Psych Appearance: grossly normal and well kempt Mental Status: mental status grossly normal Speech and Movement: speech and movement normal Affect: normal affect Attitude: cooperative Thought Process: normal Thought Content: normal Insight: insight good Judgment: judgment good Assessment Plan Assessment Plan (1) Urinary tract infection without complication: Code(s): N39.0 - Urinary tract infection, site not specified Plan - Ninoska Reyes NP: Cipro 500 mg bid for 7 days. UA cultured. Go to ER if worsening symptoms. (2) Diabetes mellitus: Status: Acute Code(s): E11.9 - Type 2 diabetes mellitus without complications SNOMED Code(s): 40906760 Category: Medical Qualifiers: Diabetes mellitus type: type 2 Diabetes mellitus complication status: without complication Plan - Ninoska Reyes NP: Take metformin ER bid. CBC, COMP, HbgA1c, and lipids ordered. Orders: Orders: CMP 1 Week HGBA1C + EAG 1 Week Microalbumin/Creat Ratio - ACR 1 Week Orders Other Medications: New: ciprofloxacin HCl 500 mg PO BID 14 tabs 0RF Other Orders: Orders: URINALYSIS Today R39.15 Urine culture Today R39.15 CBC W AUTO DIFF 1 Week I10 LIPID PANEL Today I10 Follow Up: 2 Weeks (Diabetes) <Electronically signed by Ninoska Reyes DEALER ACCOUNT MANAGER> 01/17/20 1056 Name Value Range Interpretation Code Description Data Natasha rce(s) Supporting Document(s) Procedure Social History Code Duration Value Status Description Data Source(s ) Smoking 11/10/2020 12:00:00 AM EDT Never Smoker completed Never S moker eCW1 ([facility]) Smoking 10/13/2020 12:00:00 AM EDT Never Smoker completed Never S moker eCW1 ([facility]) Smoking 10/13/2020 12:00:00 AM EDT Never Smoker completed Never S moker eCW1 ([facility]) 10/11/2020 08:35:29 PM EDT No completed No [facility] 10/11/2020 08:35:29 PM EDT Yes completed Yes [facility] 10/11/2020 08:35:29 PM EDT Never smoker completed Never s [facility] Smoking 10/11/2020 08:35:00 PM EDT Never smoker completed Never s [facility] Smoking 10/01/2020 12:00:00 AM EDT Never Smoker completed Never S moker eCW1 ([facility]) Smoking 10/01/2020 12:00:00 AM EDT Never Smoker completed Never S moker eCW1 ([facility]) Smoking 10/01/2020 12:00:00 AM EDT Never Smoker completed Never S moker eCW1 ([facility]) 08/12/2020 02:26:00 PM EDT No completed No [facility] 08/12/2020 02:26:00 PM EDT Yes completed Yes [facility] 08/12/2020 02:26:00 PM EDT Never smoker completed Never s [facility] Smoking 08/12/2020 02:26:00 PM EDT Never smoker completed Never s [facility] Smoking 07/07/2020 12:00:00 AM EDT Never Smoker completed Never S fer eCW1 ([facility]) Smoking 05/23/2020 12:00:00 AM EST Never Smoked Cigarettes com pleted Never Smoked Cigarettes MEDENT ([facility]) Smoking 03/17/2020 12:00:00 AM EST Patient has never smoked co mpleted Patient has never smoked MEDENT ([facility]) 03/12/2020 11:31:00 AM EST No completed No [facility] 03/12/2020 11:31:00 AM EST Yes completed Yes [facility] 03/12/2020 11:31:00 AM EST Never smoker completed Never s [facility] 03/12/2020 11:31:00 AM EST No completed No [facility] 03/12/2020 11:31:00 AM EST Yes completed Yes [facility] 03/12/2020 11:31:00 AM EST Never smoker completed Never s [facility] Smoking 03/12/2020 11:31:00 AM EST Never smoker completed Never s [facility] Smoking 03/12/2020 10:31:00 AM EST Never smoker completed Never [facility] Smoking 01/17/2020 09:04:00 AM EDT Never smoker completed Never [facility] 01/17/2020 08:04:00 AM EDT Never smoker completed Never [facility] 01/17/2020 08:04:00 AM EDT Never smoker completed Never [facility] Smoking 01/17/2020 08:04:00 AM EDT Never smoker completed Never [facility] Vital Signs ID Date Data Source UNK Name Value Range Interpretation Code Description Data Source(s) Systolic blood pressure 122 mm[Hg] 122 mm[Hg] M EDENT ([facility], ) Diastolic blood pressure 82 mm[Hg] 82 mm[Hg] MEDENT ([facility], ) Heart rate 84 /min 84 /min MEDENT ([facility], ) Respiratory rate 14 /min 14 /min MEDENT ( [facility], ) Body temperature 97.5 [degF] 97.5 [degF] MEDENT ([facility]) Body height 66 [in_i] 66 [in_i] MEDENT ([facility]) 5'6" Body weight 210.00 [lb_av] 210.00 [lb_av] MEDEN T ([facility]) Body mass index (BMI) [Ratio] 33.9 kg/m2 33.9 k g/m2 [facility] ([facility]) [place] body weight 130 [lb_av] 130 [lb_av] MEDEN T ([facility]) Body weight 95.256 kg 95.256 kg [facility] ([facility]) Body surface area Derived from formula 2.04 m2 2.04 m2 [facility] ([facility]) Body mass index (BMI) [Ratio] 33.89 kg/m2 33.89 kg/m2 eCW1 ([facility]) Body weight 210 [lb_av] 210 [lb_av] eCW1 ([facility]) Body weight 95.25 kg 95.25 kg eCW1 ([facility]) Heart rate 66 /min 66 /min eCW1 ([facility]) Body height 66 [in_i] 66 [in_i] eCW1 ([facility]) Respiratory rate 18 /min 18 /min eCW1 ([facility]) Body temperature 97.5 [degF] 97.5 [degF] eCW1 ( [facility]) Systolic blood pressure 120 mm[Hg] 120 mm[Hg] e CW1 ([facility]) Diastolic blood pressure 80 mm[Hg] 80 mm[Hg] eCW1 ([facility]) Body weight 207 [lb_av] 207 [lb_av] eCW1 ([facility]) Body weight 93.89 kg 93.89 kg eCW1 ([facility]) Body height 66 [in_i] 66 [in_i] eCW1 ([facility]) Body mass index (BMI) [Ratio] 33.41 kg/m2 33.41 kg/m2 eCW1 ([facility]) Heart rate 76 /min 76 /min eCW1 ([facility]) Respiratory rate 18 /min 18 /min eCW1 ([facility]) Body temperature 97.7 [degF] 97.7 [degF] eCW1 ( [facility]) Systolic blood pressure 124 mm[Hg] 124 mm[Hg] e CW1 ([facility]) Diastolic blood pressure 82 mm[Hg] 82 mm[Hg] eCW1 ([facility]) Body weight 214 [lb_av] 214 [lb_av] eCW1 ([facility]) Body weight 97.07 kg 97.07 kg eCW1 ([facility]) Body height 66 [in_i] 66 [in_i] eCW1 ([facility]) Body mass index (BMI) [Ratio] 34.54 kg/m2 34.54 kg/m2 eCW1 ([facility]) Heart rate 61 /min 61 /min eCW1 ([facility]) Respiratory rate 18 /min 18 /min eCW1 ([facility]) Body temperature 97.8 [degF] 97.8 [degF] eCW1 ( [facility]) Systolic blood pressure 122 mm[Hg] 122 mm[Hg] e CW1 ([facility]) Diastolic blood pressure 82 mm[Hg] 82 mm[Hg] eCW1 ([facility]) Body weight 96.617 kg 96.617 kg MEDENT ([facility], ) Systolic blood pressure 144 mm[Hg] 144 mm[Hg] M EDENT ([facility], ) Diastolic blood pressure 88 mm[Hg] 88 mm[Hg] MEDENT ([facility], ) Body weight 213.00 [lb_av] 213.00 [lb_av] MEDEN T ([facility], ) Body mass index (BMI) [Ratio] 34.4 kg/m2 34.4 k g/m2 MEDENT ([facility], ) [place] body weight 130 [lb_av] 130 [lb_av] MEDEN T ([facility]) Body surface area Derived from formula 2.05 m2 2.05 m2 MEDENT ([facility]) Respiratory rate 16 /min 16 /min MEDENT ( [facility]) Body height 66 [in_i] 66 [in_i] MEDENT ([facility]) 5'6" Body weight 213.00 [lb_av] 213.00 [lb_av] MEDEN T ([facility]) Body mass index (BMI) [Ratio] 34.4 kg/m2 34.4 k g/m2 MED[facility] ([facility]) [place] body weight 130 [lb_av] 130 [lb_av] MEDEN T ([facility]) Body weight 96.617 kg 96.617 kg MEDENT ([facility]) Body surface area Derived from formula 2.05 m2 2.05 m2 MEDENT ([facility]) Heart rate 80 /min 80 /min MEDENT ([facility]) Respiratory rate 16 /min 16 /min MEDENT ( [facility]) Body height 66 [in_i] 66 [in_i] MEDENT ([facility]) 5'6" Body mass index (BMI) [Ratio] 35.60 kg/m2 35.60 kg/m2 W1 ([facility]) Body weight 220.6 [lb_av] 220.6 [lb_av] eCW1 ([facility]) Body height [in_i] eCW1 ([facility]) Systolic blood pressure 128 mm[Hg] 128 mm[Hg] e CW1 ([facility]) Diastolic blood pressure 82 mm[Hg] 82 mm[Hg] eCW1 ([facility]) Body weight 100.699 kg 100.699 kg MEDENT ([facility]) Body height 66 [in_i] 66 [in_i] MEDENT ([facility]) 5'6" Body weight 222.00 [lb_av] 222.00 [lb_av] MEDEN T ([facility]) [place] body weight 130 [lb_av] 130 [lb_av] MEDEN T ([facility], ) Body mass index (BMI) [Ratio] 35.8 kg/m2 35.8 k g/m2 MEDENT ([facility], ) Body surface area Derived from formula 2.09 m2 2.09 m2 MEDENT ([facility], ) Systolic blood pressure 118 mm[Hg] 118 mm[Hg] M EDENT ([facility], ) Diastolic blood pressure 82 mm[Hg] 82 mm[Hg] MEDENT ([facility], ) Heart rate 76 /min 76 /min MEDENT ([facility], ) Respiratory rate 14 /min 14 /min MEDENT ( [facility], ) Body temperature 98.2 [degF] 98.2 [degF] [facility] ([facility], ) Body weight 227.38 [lb_av] 227.38 [lb_av] MEDEN T ([facility] ) Body mass index (BMI) [Ratio] 36.1 kg/m2 36.1 k g/m2 MEDENT ([facility]) Oxygen saturation in Arterial blood by Pulse oximetry 97 % 97 % MEDENT ([facility] ) Systolic blood pressure 122 mm[Hg] 122 mm[Hg] M EDENT ([facility] ) Diastolic blood pressure 64 mm[Hg] 64 mm[Hg] MEDENT ([facility] ) Heart rate 66 /min 66 /min MEDENT ([facility] ) Body temperature 96.5 [degF] 96.5 [degF] MEDENT ([facility]) Body height 66.5 [in_i] 66.5 [in_i] MEDENT ([facility] ) 5'6.50" Body temperature 97.2 [degF] 97.2 [degF] MEDENT ([facility], ) Systolic blood pressure 136 mm[Hg] 136 mm[Hg] M EDENT ([facility], ) Diastolic blood pressure 78 mm[Hg] 78 mm[Hg] MEDENT ([facility], ) Heart rate 80 /min 80 /min MEDENT ([facility], ) Respiratory rate 14 /min 14 /min MEDENT ( [facility]) Body temperature 97.9 [degF] 97.9 [degF] MEDENT ([facility]) Body height 66 [in_i] 66 [in_i] MEDENT ([facility]) 5'6" [place] body weight 130 [lb_av] 130 [lb_av] MEDEN T ([facility]) Systolic blood pressure 132 mm[Hg] 132 mm[Hg] M EDENT ([facility]) [place] body weight 130 [lb_av] 130 [lb_av] MEDEN T ([facility]) Body temperature 98.3 [degF] 98.3 [degF] MEDENT ([facility]) Body height 66 [in_i] 66 [in_i] MEDENT ([facility]) 5'6" Diastolic blood pressure 74 mm[Hg] 74 mm[Hg] MEDENT ([facility]) Heart rate 80 /min 80 /min MEDENT ([facility]) Respiratory rate 16 /min 16 /min [facility] Systolic blood pressure 144 mm[Hg] 144 mm[Hg] [facility] Diastolic blood pressure 80 mm[Hg] 80 mm[Hg] [facility] ([facility]) Heart rate 84 /min 84 /min [facility] Respiratory rate 14 /min 14 /min [facility] Body temperature 97.6 [degF] 97.6 [degF] MEDENT ([facility]) Body height 66 [in_i] 66 [in_i] MEDENT ([facility]) 5'6" Body weight 237.00 [lb_av] 237.00 [lb_av] MEDEN T ([facility]) Body mass index (BMI) [Ratio] 38.2 kg/m2 38.2 k g/m2 MEDENT ([facility]) [place] body weight 130 [lb_av] 130 [lb_av] MEDEN T ([facility]) Body weight 107.503 kg 107.503 kg MEDENT ([facility]) Body surface area Derived from formula 2.15 m2 2.15 m2 MEDENT ([facility]) Diastolic blood pressure 78 mm[Hg] 78 mm[Hg] MEDENT ([facility]) Systolic blood pressure 138 mm[Hg] 138 mm[Hg] M EDENT ([facility]) Heart rate 67 /min 67 /min MEDENT ([facility]) Body height 65 [in_i] 65 [in_i] MEDENT ([facility]) 5'5" Body weight 236.00 [lb_av] 236.00 [lb_av] MEDEN T ([facility]) Body mass index (BMI) [Ratio] 39.3 kg/m2 39.3 k g/m2 MEDENT ([facility]) Oxygen saturation in Arterial blood by Pulse oximetry 98 % 98 % MEDENT ([facility]) Systolic blood pressure 124 mm[Hg] 124 mm[Hg] M EDENT ([facility] ) Diastolic blood pressure 80 mm[Hg] 80 mm[Hg] MEDENT ([facility] ) Heart rate 78 /min 78 /min MEDENT ([facility]) Body temperature 96.4 [degF] 96.4 [degF] MEDENT ([facility]) Body height 66.5 [in_i] 66.5 [in_i] MEDENT ([facility] ) 5'6.50" Body weight 242.38 [lb_av] 242.38 [lb_av] MEDEN T ([facility]) Body mass index (BMI) [Ratio] 38.5 kg/m2 38.5 k g/m2 MEDENT ([facility]) Oxygen saturation in Arterial blood by Pulse oximetry 98 % 98 % MEDENT ([facility]) Body temperature 97.8 [degF] 97.8 [degF] MEDENT ([facility], ) Body height 66 [in_i] 66 [in_i] MEDENT ([facility]) 5'6" Body weight 244.00 [lb_av] 244.00 [lb_av] MEDEN T ([facility]) Body mass index (BMI) [Ratio] 39.4 kg/m2 39.4 k g/m2 MEDENT ([facility], ) [place] body weight 130 [lb_av] 130 [facility]_av[facility] Body weight 110.678 kg 110.678 kg [facility] ([facility]) Body surface area Derived from formula 2.18 m2 2.18 m2 [facility] ([facility]) Systolic blood pressure 140 mm[Hg] 140 mm[Hg] M EDENT ([facility], ) Diastolic blood pressure 82 mm[Hg] 82 mm[Hg] [facility] Heart rate 84 /min 84 /min [facility] ([facility]) Respiratory rate 16 /min 16 /min [facility] ( [facility])
[2021-01-13] MEDS ORDERED: EPINEPHrine INJ 1 MG/ML 1ML AMP As Ordered ONE ×2 (07:15→07:28)
[2021-01-13] MEDS ORDERED: GENTAMICIN SULF 80MG/2ML VIAL As Ordered ONE ×2 (07:15→08:38)
[2021-01-13] MEDS ORDERED: LIDOCAINE 1% MDV 20ML VIAL As Ordered ONE ×2 (07:15→07:28)
[2021-01-13] MEDS ORDERED: BUPIVACAINE LIPOSOME/PF 1.3% 20ML VIAL (13.3MG/ML)(EXPAREL)(C9290 PER1MG) As Ordered ONE (07:16)
[2021-01-13] MEDS ORDERED: MIDAZOLAM INJ 2MG/2ML VIAL (J2250 PER 1MG) As Ordered ONE (07:21)
[2021-01-13] MEDS ORDERED: LIDOCAINE 2% 100MG/5ML SDV (FOR ANES.) As Ordered ONE (07:21)
[2021-01-13] MEDS ORDERED: dexameTHASONE 4 MG/ML 1ML VIAL (J1100 PER 1MG) As Ordered ONE (07:21)
[2021-01-13] MEDS ORDERED: propofoL 200 MG/20 ML VIAL As Ordered ONE (07:21)
[2021-01-13] MEDS ORDERED: fentaNYL 250 MCG/5 ML INJECTION (J3010) As Ordered ONE (07:21)
[2021-01-13] MEDS ORDERED: ROCURONIUM BROMIDE 50 MG/5 ML VIAL As Ordered ONE ×2 (07:21→08:52)
[2021-01-13] MEDS ORDERED: ONDANSETRON 4MG/2ML VIAL As Ordered ONE (07:21)
[2021-01-13] MEDS ORDERED: SEVOFLURANE INHAL SOLN 250 ML BTL As Ordered ONE (07:50)
[2021-01-13] MEDS ORDERED: ePHEDrine SULFATE 25 MG/5 ML(5MG/ML) SYRINGE As Ordered ONE (08:21)
[2021-01-13] MEDS ORDERED: PHENYLephrine 500MCG 5ML (100MCG/ML) SYRINGE As Ordered ONE (08:21)
[2021-01-13] MEDS ORDERED: ACETAMINOPHEN 1000MG 100ML IV BTL (OFIRMEV) (J0131 PER 10MG) As Ordered ONE (09:06)
[2021-01-13] MEDS ORDERED: SUGAMMADEX SODIUM 500 MG/5 ML VIAL (BRIDION) As Ordered ONE (09:06)
[2021-01-13] MEDS ORDERED: HYDROmorphone HCL 2 MG/ML 1ML VIAL As Ordered ONE (09:06)
--- NOTE | 2021-01-13 10:52 | POST-OPPD ---
Postoperative Procedure Note Date Of Procedure: Jan 13, 2021 PREOPERATIVE DIAGNOSIS: Right breast cancer. Asymmetry of reconstructed breast. POSTOPERATIVE DIAGNOSIS: same PROCEDURE: Revision of reconstructed breasts with use of fat transfer to right and left breasts. Left breast mastopexy scar revision for symmetry. Donor site abdomen. SURGEON: Dr Parry ADVERTISER: none ANESTHESIA: general ESTIMATED BLOOD LOSS: 50 cc FINDINGS: Left breast larger than right. SPECIMENS: left breast scar tissue COMPLICATIONS: none REPLACED: none DRAINS: none POSTOPERATIVE CONDITION: stable JENNIFER PARRY DO Jan 13, 2021 10:52
--- NOTE | 2021-01-13 10:53 | ROOPDOC ---
[facility] Report Of Operation Report of Operation DATE OF PROCEDURE: 01/13/21 PREOPERATIVE DIAGNOSIS: Right breast cancer. Asymmetry of reconstructed breast. POSTOPERATIVE DIAGNOSIS: same PROCEDURE: Revision of reconstructed breasts with use of fat transfer to right and left breasts. Left breast mastopexy scar revision for symmetry. Donor site abdomen. SURGEON: Dr Parry DATASTAGE DEVELOPER: none ANESTHESIA: general ESTIMATED BLOOD LOSS: 50 cc FINDINGS: Left breast larger than right. SPECIMENS: left breast scar tissue COMPLICATIONS: none REPLACED: none DRAINS: none POSTOPERATIVE CONDITION: stable DESCRIPTION OF PROCEDURE: This is a 55-year-old female status post breast cancer right side which was treated with lumpectomy and radiation. Patient underwent bilateral breast mastopexy in the past. Right side is still smaller than the left side. Her left breast also has excess tissue along the lateral to medial point of the horizontal scar. Patient is scheduled for revision of reconstructed breast with fat transfer to right breast and left breast and left breast mastopexy scar revision for symmetry. Risk benefits and alternatives discussed with the patient in details, and she is ready to proceed. The day of surgery she was marked in the upright position. Donor site is abdomen. She was brought into the operating room,placed in supine position, general anesthesia is induced. Preoperative antibiotic were given, as well as 5000 units heparin subcu and sequentials placed in the lower calves. She was prepped and draped in the usual sterile fashion. We started our procedure on her abdomen. Small stab incisions were made along the lower part of the abdomen and through the superior part of the umbilicus. Tumescent solution was infiltrated throughout the abdomen total 1594 cc. Suction assisted lipectomy on the lower suction was performed totaling 1200 cc of liposuction fluid. We have used completely enclosed sterile system on collecting the fat. 80 mg of gentamicin was placed in the fat. The fat container was placed on a vibrating platform and the fat was from the serous fluid. fat was then transferred into the 20 cc syringes and remaining fluid was eliminated by gravity. We have started by grafting the fat on the right side small opening was created by 18-gauge needle and a 16-gauge cannula was used to infiltrate the fat throughout the right breast. Total 250 cc was infiltrated. Return attention to the left side the scar was measured and resected along the horizontal old incision. The edges were reapproximated and matched to the right side. We used 3-0 Monocryl sutures to close that incision. Fat transfer was then performed through a small stab incision that was created by 18-gauge needle. 160 cc of fat was transferred. Vertical scar now is 7 cm bilaterally. And good symmetry achieved between the 2 breasts. Prineo dressing was placed on the horizontal part of the left breast incision. Abdomen was dressed with Steri-Strips and compression binder. No pressure on her breasts. Patient tolerated procedure well, extubated in operating room without any difficulties, and transferred to recovery in stable condition. JENNIFER PARRY DO Jan 13, 2021 10:53
[2021-01-13] MEDS ORDERED: TRAM50TA2 PO (10:59)
[2021-01-13] MEDS ORDERED: LR 1,000 ML IV SCH (11:10)
[2021-01-13] MEDS ORDERED: HYDROMORPHONE HCL 0.5 MG/ 0.5 ML SYRINGE (J1170 PER 1) IV PRN (11:10)
[2021-01-13] MEDS ORDERED: ONDANSETRON 4MG/2ML VIAL IV PRN (11:10)
[2021-01-13] MEDS ORDERED: oxyCODONE 5MG TAB PO PRN (11:10)
[2021-01-13] MEDS ORDERED: fentaNYL 100 MCG/2 ML INJECTION (J3010) IV PRN (11:10)
[2021-01-13 12:30] VITALS: BP 130/81
[2021-01-13] MEDS ORDERED: LACRILUBE (AKWA TEARS) OPHTH OINT 3.5 GM As Ordered ONE (13:39)
--- NOTE | 2021-01-14 07:08 | ECGEPIP ---
[facility] Test Date: 2021-01-13 Pat Name: SONU SHARP Department: Room: - Gender: Female Adoption Coordinator: hugh : 1965 Requested By: JENNIFER Cespedes Order Number: [id number] Reading MD: Nicolas Way Measurements Intervals [place] Rate: 57 P: 40 MN: 202 QRS: 47 QRSD: 92 T: 36 QT: 444 QTc: 432 Interpretive Statements Sinus bradycardia Cannot rule out Anterior infarct , age undetermined Comparison tracing not on file Electronically Signed on 01-14-2021 7:08:[address]
== END 2021-01-13 12:30 | disposition home or self-care (01) ==
LOC: M SDC 06:01
PROVIDERS: ATTEND Plastic Surgery Surgery of the Hand
DX: C50.411 Malignant neoplasm of upper-outer quadrant of right female breast (principal); N65.1 Disproportion of reconstructed breast; N64.89 Other specified disorders of breast; I10 Essential (primary) hypertension; E11.9 Type 2 diabetes mellitus without complications; E78.00 Pure hypercholesterolemia, unspecified; F41.9 Anxiety disorder, unspecified; Z92.21 Personal history of antineoplastic chemotherapy; Z92.3 Personal history of irradiation; Z88.1 Allergy status to other antibiotic agents; Z79.899 Other long term (current) drug therapy; Z79.84 Long term (current) use of oral hypoglycemic drugs; Z79.1 Long term (current) use of non-steroidal anti-inflammatories (NSAID)
CPT/HCPCS: 13100; 15771; 15772; 88305; 93005; J0131; J0171; J1100; J1170; J1580; J1644; J2250; J2370; J2405; J3010

== ENCOUNTER → 2021-06-03 | Outpatient (CLI) | payer BC, OTHER ==
[~2021-06-03] MED LIST changes: -CLINDAMYCIN 900 MG in IV 1 EA IV ONE; -D31000TA2 PO; -HEPARIN SOD (PORCINE) 5000UNITS/ML 1ML VIAL/SYRINGE SQ SCH; -LR 1,000 ML IV SCH; +TRAM50TA2 PO; +VITA100093 PO
== END ==
LOC: M WHC 09:08
PROVIDERS: ATTEND Surgery
DX: R92.8 Other abnormal and inconclusive findings on diagnostic imaging of breast (principal)

== ENCOUNTER 2021-07-09 06:51 | Day surgery (SDC) | payer BC, OTHER ==
[~2021-07-09] VITALS: Ht 165.1 cm; Wt 96.6 kg
[~2021-07-09 06:51] MED LIST changes: +CLINDAMYCIN 600 MG in IV 1 EA IV ONE; +HEPARIN SOD (PORCINE) 5000UNITS/ML 1ML VIAL/SYRINGE SQ ONE; +LR 1,000 ML IV ONE; -ZOLO100T; +ZOLO100T PO
[2021-07-09] MEDS ORDERED: SCOPOLAMINE 1MG TRANSDERMAL PATCH TOP ONE (08:10)
[2021-07-09] MEDS ORDERED: propofoL 200 MG/20 ML VIAL As Ordered ONE (08:17)
[2021-07-09] MEDS ORDERED: LIDOCAINE 2% 100MG/5ML SDV (FOR ANES.) As Ordered ONE (08:17)
[2021-07-09] MEDS ORDERED: MIDAZOLAM INJ 2MG/2ML VIAL (J2250 PER 1MG) As Ordered ONE (08:17)
[2021-07-09] MEDS ORDERED: fentaNYL 100 MCG/2 ML INJECTION As Ordered ONE (08:17)
[2021-07-09] MEDS ORDERED: ONDANSETRON 4MG/2ML VIAL As Ordered ONE (08:18)
[2021-07-09] MEDS ORDERED: ROCURONIUM BROMIDE 50 MG/5 ML VIAL As Ordered ONE (08:18)
[2021-07-09] MEDS ORDERED: dexameTHASONE 4 MG/ML 1ML VIAL (J1100 PER 1MG) As Ordered ONE (08:18)
[2021-07-09] MEDS ORDERED: BUPIVACAINE LIPOSOME/PF 1.3% 20ML VIAL (13.3MG/ML)(EXPAREL) As Ordered ONE (09:26)
[2021-07-09] MEDS ORDERED: GENTAMICIN SULF 80MG/2ML VIAL As Ordered ONE (09:26)
[2021-07-09] MEDS ORDERED: EPINEPHrine INJ 1 MG/ML 1ML AMP As Ordered ONE ×2 (09:26→10:14)
[2021-07-09] MEDS ORDERED: LIDOCAINE 1% MDV 20ML VIAL As Ordered ONE ×2 (09:26→10:14)
[2021-07-09] MEDS ORDERED: ceFAZolin 1GM VIAL (J0690 PER 500MG) As Ordered ONE (09:35)
[2021-07-09] MEDS ORDERED: METOCLOPRAMIDE INJ 10MG/2ML VIAL (J2765 PER 1) As Ordered ONE (09:50)
[2021-07-09] MEDS ORDERED: ePHEDrine SULFATE 25 MG/5 ML(5MG/ML) SYRINGE As Ordered ONE (10:03)
[2021-07-09] MEDS ORDERED: ACETAMINOPHEN 1000MG 100ML IV BTL (OFIRMEV) (J0131 PER 10MG) As Ordered ONE (10:07)
[2021-07-09] MEDS ORDERED: GLYCOPYRROLATE INJ 0.2 MG/ML 2 ML VIAL As Ordered ONE (10:09)
[2021-07-09] MEDS ORDERED: VASOPRESSIN INJ 20 UNITS/ML VIAL As Ordered ONE (10:28)
[2021-07-09] MEDS ORDERED: PHENYLephrine 500MCG 5ML (100MCG/ML) SYRINGE As Ordered ONE (10:34)
[2021-07-09] MEDS ORDERED: oxyCODONE 5MG TAB PO PRN (12:15)
[2021-07-09] MEDS ORDERED: fentaNYL 100 MCG/2 ML INJECTION IV PRN (12:15)
[2021-07-09] MEDS ORDERED: ONDANSETRON 4MG/2ML VIAL IV PRN (12:15)
[2021-07-09] MEDS ORDERED: LR 1,000 ML IV SCH (12:15)
[2021-07-09] MEDS ORDERED: OXYC1TAB23 PO (12:18)
[2021-07-09 13:25] VITALS: BP 142/83
== END 2021-07-09 13:28 | disposition home or self-care (01) ==
LOC: M SDC 06:51
PROVIDERS: ATTEND Plastic Surgery Surgery of the Hand
DX: N65.1 Disproportion of reconstructed breast (principal); Z85.3 Personal history of malignant neoplasm of breast; I10 Essential (primary) hypertension; E11.9 Type 2 diabetes mellitus without complications; E78.00 Pure hypercholesterolemia, unspecified; F41.9 Anxiety disorder, unspecified; Z92.21 Personal history of antineoplastic chemotherapy; Z92.3 Personal history of irradiation; Z88.1 Allergy status to other antibiotic agents; Z79.899 Other long term (current) drug therapy; Z79.84 Long term (current) use of oral hypoglycemic drugs; Z79.1 Long term (current) use of non-steroidal anti-inflammatories (NSAID)
CPT/HCPCS: 15771; 15772; 19380; J0131; J0171; J0690; J1100; J1644; J2250; J2370; J2405; J2765; J3010

== ENCOUNTER → 2022-02-21 | Outpatient (CLI) | payer BC, OTHER ==
[~2022-02-21] MED LIST changes: -CLINDAMYCIN 600 MG in IV 1 EA IV ONE; -HEPARIN SOD (PORCINE) 5000UNITS/ML 1ML VIAL/SYRINGE SQ ONE; -LR 1,000 ML IV ONE; +OXYC1TAB23 PO
== END ==
LOC: M LABSMTC 11:05
PROVIDERS: ATTEND Anesthesiology
DX: Z01.812 Encounter for preprocedural laboratory examination (principal); Z11.52 Encounter for screening for COVID-19

== ENCOUNTER 2022-02-23 06:54 | Day surgery (SDC) | payer BC, OTHER ==
[~2022-02-23] VITALS: Ht 165.1 cm; Wt 99.4 kg
[~2022-02-23 06:54] MED LIST changes: +HEPARIN SOD (PORCINE) 5000UNITS/ML 1ML VIAL/SYRINGE SQ ONE
[2022-02-23] MEDS ORDERED: fentaNYL 100 MCG/2 ML INJECTION As Ordered ONE (08:20)
[2022-02-23] MEDS ORDERED: MIDAZOLAM INJ 2MG/2ML VIAL (J2250 PER 1MG) As Ordered ONE (08:20)
[2022-02-23] MEDS ORDERED: LR 1,000 ML IV SCH (08:20)
[2022-02-23] MEDS ORDERED: dexameTHASONE 4 MG/ML 1ML VIAL (J1100 PER 1MG) As Ordered ONE (08:21)
[2022-02-23] MEDS ORDERED: ONDANSETRON 4MG 2ML VIAL As Ordered ONE (08:21)
[2022-02-23] MEDS ORDERED: propofoL 200 MG/20 ML VIAL As Ordered ONE (08:21)
[2022-02-23] MEDS ORDERED: LIDOCAINE 2% 100MG/5ML SDV (FOR ANES.) As Ordered ONE (08:21)
[2022-02-23] MEDS ORDERED: SCOPOLAMINE 1MG TRANSDERMAL PATCH TOP ONE (08:35)
[2022-02-23] MEDS ORDERED: GENTAMICIN SULF 80MG/2ML VIAL As Ordered ONE (08:57)
[2022-02-23] MEDS ORDERED: BUPIVACAINE HCL 0.25% 10ML VIAL As Ordered ONE (08:57)
[2022-02-23] MEDS ORDERED: BUPIVACAINE LIPOSOME/PF 1.3% 20ML VIAL (13.3MG/ML)(EXPAREL) As Ordered ONE (08:57)
[2022-02-23] MEDS ORDERED: EPINEPHrine INJ 1 MG/ML 1ML AMP As Ordered ONE (08:58)
[2022-02-23] MEDS ORDERED: LIDOCAINE 1% MDV 20ML VIAL As Ordered ONE (08:58)
[2022-02-23] MEDS ORDERED: CIPROFLOXACIN 400 MG in IV 1 EA IV ONE (09:10)
[2022-02-23] MEDS ORDERED: ACETAMINOPHEN 1000MG 100ML IV BAG As Ordered ONE (10:06)
[2022-02-23] MEDS ORDERED: fentaNYL 100 MCG/2 ML INJECTION IV PRN (11:55)
[2022-02-23] MEDS ORDERED: oxyCODONE 5MG TAB PO PRN (11:55)
[2022-02-23] MEDS ORDERED: ONDANSETRON 4MG 2ML VIAL IV PRN (11:55)
[2022-02-23] MEDS ORDERED: TRAM50TA2 PO (12:17)
[2022-02-23 13:15] VITALS: BP 147/79
== END 2022-02-23 13:50 | disposition home or self-care (01) ==
LOC: M SDC 06:54
PROVIDERS: ATTEND Plastic Surgery Surgery of the Hand
DX: N65.1 Disproportion of reconstructed breast (principal); Z85.3 Personal history of malignant neoplasm of breast; I10 Essential (primary) hypertension; E11.9 Type 2 diabetes mellitus without complications; E78.00 Pure hypercholesterolemia, unspecified; F41.9 Anxiety disorder, unspecified; Z88.1 Allergy status to other antibiotic agents; Z79.899 Other long term (current) drug therapy; Z79.84 Long term (current) use of oral hypoglycemic drugs; Z79.1 Long term (current) use of non-steroidal anti-inflammatories (NSAID)
CPT/HCPCS: 15771; 15772; C9290; J0131; J0171; J0744; J1100; J1580; J1644; J2250; J2405; J3010

== ENCOUNTER 2023-04-05 09:54 | Observation (INO) | payer BC, OTHER ==
[2023-04-05] VITALS (8 sets, daily range): BP systolic 134–155; BP diastolic 80–88; TEMP 96.8–97.7; O2SAT 92–96
[~2023-04-05] VITALS: Ht 165.1 cm; Wt 97.6 kg
[~2023-04-05 09:54] MED LIST changes: +SEMA1PEN2 SQ; +ceFAZolin SOD 2 GM in IV 1 EA IV ONE
[2023-04-05] MEDS ORDERED: LR 1,000 ML IV SCH ×2 (10:00→16:10)
[2023-04-05] MEDS ORDERED: MIDAZOLAM INJ 2MG/2ML VIAL As Ordered ONE (10:26)
[2023-04-05] MEDS ORDERED: ROCURONIUM BROMIDE 50MG/5ML VIAL As Ordered ONE (10:26)
[2023-04-05] MEDS ORDERED: propofoL 200 MG/20 ML VIAL As Ordered ONE (10:26)
[2023-04-05] MEDS ORDERED: fentaNYL 100 MCG/2 ML INJECTION As Ordered ONE (10:26)
[2023-04-05] MEDS ORDERED: SUGAMMADEX SODIUM 500 MG/5 ML VIAL (BRIDION) As Ordered ONE (10:27)
[2023-04-05] MEDS ORDERED: ONDANSETRON 4MG 2ML VIAL As Ordered ONE (10:27)
[2023-04-05] MEDS ORDERED: ACETAMINOPHEN 1000MG 100ML IV BAG As Ordered ONE (10:27)
[2023-04-05] MEDS ORDERED: LIDOCAINE 2% 100MG/5ML SDV (FOR ANES.) As Ordered ONE (10:27)
[2023-04-05] MEDS ORDERED: ACET-897 PO (11:04)
[2023-04-05] MEDS ORDERED: HOME MED LIST COMPLETE! XX SCH (11:05)
[2023-04-05] MEDS ORDERED: GENTAMICIN SULF 80MG/2ML VIAL As Ordered ONE (11:50)
[2023-04-05] MEDS ORDERED: CIPROFLOXACIN/D5W 400 MG/200 ML BAG As Ordered ONE (12:34)
[2023-04-05] MEDS ORDERED: fentaNYL 100 MCG/2 ML INJECTION IV PRN (16:10)
[2023-04-05] MEDS ORDERED: ONDANSETRON 4MG 2ML VIAL IV PRN ×2 (16:10→16:20)
[2023-04-05] MEDS ORDERED: PERCOCET 5MG/325MG TAB PO PRN (16:20)
[2023-04-05] MEDS ORDERED: ACETAMINOPHEN TAB 650MG DOSE (2X325MG) PO PRN (16:20)
[2023-04-05] MEDS: oxyCODONE 5MG TAB PO PRN ×2 (16:27→17:00)
[2023-04-05] MEDS: HYDROMORPHONE HCL 0.5 MG/ 0.5 ML SYRINGE IV PRN ×4 (16:28→17:00)
[2023-04-05] MEDS ORDERED: PILL CUTTER 1 EACH XX PRN (16:30)
[2023-04-05] MEDS: LR 1,000 ML IV SCH (18:05)
[2023-04-05] MEDS ORDERED: ROSUVASTATIN 10 MG TAB (CRESTOR) PO SCH (21:00)
[2023-04-05] MEDS ORDERED: CARVedilol 6.25 MG TAB PO SCH (21:00)
[2023-04-05] MEDS ORDERED: SERTRALINE 100 MG TAB PO SCH (21:00)
[2023-04-06] MEDS ORDERED: CIPROFLOXACIN 400 MG in IV 1 EA IV SCH (01:00)
[2023-04-06 02:00] VITALS: BP 122/80; TEMP 97.5; O2SAT 91
[2023-04-06] MEDS: traMADol 50 MG TAB PO PRN ×2 (02:44→11:39)
[2023-04-06] MEDS: LR 1,000 ML IV SCH (04:45)
[2023-04-06 06:00] VITALS: BP 123/76; TEMP 97.3; O2SAT 95
[2023-04-06] MEDS ORDERED: PERCOCET PO (09:10)
== END 2023-04-06 12:10 | disposition home or self-care (01) ==
LOC: M SDC 09:54 → M MS5PR 09:55
PROVIDERS: ADMIT Plastic Surgery Surgery of the Hand; ATTEND Plastic Surgery Surgery of the Hand
DX: M79.3 Panniculitis, unspecified (principal); M62.08 Separation of muscle (nontraumatic), other site; E11.9 Type 2 diabetes mellitus without complications; I10 Essential (primary) hypertension; Z90.11 Acquired absence of right breast and nipple; Z85.3 Personal history of malignant neoplasm of breast; Z92.21 Personal history of antineoplastic chemotherapy; Z92.3 Personal history of irradiation; R06.83 Snoring; Z88.1 Allergy status to other antibiotic agents; Z79.899 Other long term (current) drug therapy; Z79.1 Long term (current) use of non-steroidal anti-inflammatories (NSAID); Z79.85 Long-term (current) use of injectable non-insulin antidiabetic drugs
CPT/HCPCS: 15830; 87635; 88300; 96365; C9290; J0131; J0665; J0744; J1100; J1170; J1580; J2250; J2405; J3010

== ENCOUNTER 2023-12-06 11:43 | Day surgery (SDC) | payer BC ==
[~2023-12-06] VITALS: Ht 165.1 cm; Wt 92.1 kg
[~2023-12-06 11:43] MED LIST changes: +ACET-897 PO; +D-10TAB2 PO; -HEPARIN SOD (PORCINE) 5000UNITS/ML 1ML VIAL/SYRINGE SQ ONE; +LIDOCAINE 2% 100MG/5ML SDV (FOR ANES.) As Ordered ONE; +MIDAZOLAM INJ 2MG/2ML VIAL As Ordered ONE; +ROSU5TAB40 PO; -ROSU5TAB5 PO; +SEMA2PEN SC; -ceFAZolin SOD 2 GM in IV 1 EA IV ONE; +fentaNYL 100 MCG/2 ML INJECTION As Ordered ONE; +propofoL 200 MG/20 ML VIAL As Ordered ONE
[2023-12-06] MEDS ORDERED: LR 1,000 ML IV SCH (12:05)
[2023-12-06] MEDS ORDERED: ePHEDrine SULFATE 25 MG/5 ML(5MG/ML) SYRINGE As Ordered ONE (14:08)
[2023-12-06] MEDS ORDERED: PHENYLephrine 500MCG 5ML (100MCG/ML) SYRINGE As Ordered ONE (14:08)
[2023-12-06] MEDS ORDERED: ACETAMINOPHEN 1000MG 100ML IV BAG As Ordered ONE (14:13)
[2023-12-06] MEDS ORDERED: ONDANSETRON 4MG 2ML VIAL As Ordered ONE (14:17)
[2023-12-06] MEDS: CIPROFLOXACIN/D5W 400 MG/200 ML BAG As Ordered ONE (14:46)
[2023-12-06] MEDS: ceFAZolin SOD 2 GM in IV 1 EA IV ONE (14:46)
[2023-12-06] MEDS: ceFAZolin 1GM VIAL As Ordered ONE (14:46)
[2023-12-06] MEDS: LIDOCAINE 1% MDV 20ML VIAL As Ordered ONE (14:47)
[2023-12-06] MEDS: EPINEPHrine INJ 1 MG/ML 1ML AMP As Ordered ONE (14:47)
[2023-12-06] MEDS: HEPARIN SOD (PORCINE) 5000UNITS/ML 1ML VIAL/SYRINGE SQ ONE (14:51)
[2023-12-06] MEDS: GENTAMICIN SULF 80MG/2ML VIAL As Ordered ONE (14:51)
[2023-12-06] MEDS ORDERED: HYDROmorphone HCL 2MG/ML 1ML VIAL As Ordered ONE (15:22)
[2023-12-06] MEDS ORDERED: SUGAMMADEX SODIUM 500 MG/5 ML VIAL (BRIDION) As Ordered ONE (15:27)
[2023-12-06] MEDS ORDERED: ONDANSETRON 4MG 2ML VIAL IV PRN (16:25)
[2023-12-06] MEDS ORDERED: fentaNYL 100 MCG/2 ML INJECTION IV PRN (16:25)
[2023-12-06] MEDS ORDERED: oxyCODONE 5MG TAB PO PRN (16:25)
[2023-12-06] MEDS ORDERED: OXYC1TAB23 PO (16:58)
[2023-12-06 17:37] VITALS: BP 138/82; TEMP 97.7; O2SAT 98
== END 2023-12-06 17:55 | disposition home or self-care (01) ==
LOC: M SDC 11:43
PROVIDERS: ATTEND Plastic Surgery Surgery of the Hand
DX: N65.1 Disproportion of reconstructed breast (principal); L90.5 Scar conditions and fibrosis of skin; Z85.3 Personal history of malignant neoplasm of breast; Z90.11 Acquired absence of right breast and nipple; E11.9 Type 2 diabetes mellitus without complications; I10 Essential (primary) hypertension; E78.00 Pure hypercholesterolemia, unspecified; Z79.899 Other long term (current) drug therapy; Z79.85 Long-term (current) use of injectable non-insulin antidiabetic drugs; Z92.3 Personal history of irradiation; Z92.21 Personal history of antineoplastic chemotherapy; Z90.710 Acquired absence of both cervix and uterus; Z88.1 Allergy status to other antibiotic agents
CPT/HCPCS: 11406; 15771; 15772; 19380; 88302; C9290; J0131; J0171; J0665; J0690; J0744; J1100; J1170; J1580; J2250; J2371; J2405; J3010